=== PATIENT | male | born 1945 | race Caucasian/White ===

== ENCOUNTER → 2020-09-02 15:40 | Outpatient (BNVA) | payer OTHER, SELFPAY | PROVIDERS: Family Provider Family Medicine; PCP Orthopaedic Surgery Sports Medicine; Visit Provider Nurse Practitioner Family | DX: Z20.828 Contact with and (suspected) exposure to other viral communicable diseases (principal) | CPT/HCPCS: 87635 ==

== ENCOUNTER 2020-12-27 09:53 | Emergency (ER) | payer OTHER, BC, SELFPAY ==
[2020-12-27] VITALS (9 sets, daily range): BP systolic 142–159; BP diastolic 80–90; PULSE 74–86; RESP 18–26; TEMP 36.5; O2SAT 94–98; BMI 32.9
--- NOTE | 2020-12-27 10:13 | XRR_ITS ---
PROCEDURE INFORMATION: Exam: XR Chest Exam date and time: 12/27/2020 10:16 AM Age: 75 years old Clinical indication: Shortness of breath; Additional info: SOB TECHNIQUE: Imaging protocol: XR of the chest Views: 1 view. COMPARISON: CR Chest 1 [place] [id number] 09/17/2019 4:23 PM FINDINGS: Tubes, catheters and devices: Atrioventricular pacemaker. Lungs: Interstitial disease, without acute airspace disease. Pleural spaces: No pleural effusion. Heart/Mediastinum: Borderline cardiomegaly. Bones/joints: Median sternotomy. Degenerative change. When correlating with the previous study, no significant interval changes are present. XR/XR chest 1V portable [id number] IMPRESSION: Stable appearance of the chest, not significantly changed from 09/17/19.
--- NOTE | 2020-12-27 10:14 | ECG_ITS ---
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1945 Requested By: Jose Muniz Order Number: [id number] Shalini MD: SOTERO HOWE Measurements Intervals [place] Rate: 82 P: NC: QRS: -12 QRSD: 94 T: -16 QT: 365 QTc: 427 Interpretive Statements ATRIAL FIBRILLATION ELECTRONIC VENTRICULAR PACEMAKER -- CONTOUR ANALYSIS BASED ON INTRINSIC RHYTHM ST DEVIATION AND MODERATE T-WAVE ABNORMALITY, CONSIDER ANTEROLATERAL ISCHEMIA [-0.1+ mV T WAVE IN V3-V6] Compared to ECG 07/12/2019 05:38:21 THERE IS NO CHANGE Electronically Signed On 12-27-2020 18:45:35 TRAVEL PT by SOTERO HOWE [email or web address] hospitalR[facility]be[email or web address]/store/NU/[id number] f
--- NOTE | 2020-12-27 10:23 | ED_ITS ---
Documented by User: MONSE Light 12/28/20 07:19 HPI - SOB/Dyspnea General: Chief Complaint: Shortness of Breath/Dyspnea Stated Complaint: Shortness of breath Time Seen by Provider: 12/27/20 10:04 History of Present Illness: HPI Narrative: Patient is a 75-year-old male comes to the ED with shortness of breath and cough. Patient has a history of COPD, CHF, hypertension, hyperlipidemia, CAD, diabetes and has a pacemaker. Patient says symptoms started approximately 2 days ago. He reports having increased shortness of breath especially when he is laying down or when he is up moving around. He currently has inhalers that he uses for COPD and he has been using them as prescribed. He reports having a cough that he gets up some dark green type phlegm. Reports some mild fluid retention in his legs within the last 24 hours but denies any known weight gain. Patient says he has bronchitis usually twice a year and he feels like these current symptoms of start of bronchitis. Denies any chest pain, fever, chills, abdominal pain, nausea/vomiting, bladder or bowel symptoms. Patient received his second Covid vaccine dose 2 weeks ago. Patient is not on any home O2. Associated symptoms: Reports chest congestion and orthopnea; Deny abdominal pain, chest pain, fever(s), nausea, palpitations or vomiting Review of Systems Const: Denies: fever(s), chills or fatigue Eyes: Denies: change in vision or eye discomfort ENMT: Denies: throat pain, odynophagia, nasal discharge or nasal congestion Card: Reports: edema (mild bilateral edema), dyspnea on exertion and orthopnea; Denies: chest pain, palpitations or swelling of feet/ankles Resp: Reports: dyspnea, productive cough (dark green phlegm), wheezing, change in phlegm color (dark green) and chest congestion; Denies: non-productive cough GI: Denies: abdominal pain, nausea, vomiting, diarrhea, constipation or hematochezia : Denies: flank pain, difficulty urinating, dysuria or hematuria Musc: Denies: neck pain, back pain or extremity swelling Skin/Breast: Denies: rash or new lesions Neuro: Denies: headache(s), numbness in extremities or weakness in extremities PFS ED PFSH: Medical History (Updated 01/05/21 @ 00:00 by ) CAD (coronary artery disease) Chronic episodic atrial fibrillation COPD (chronic obstructive pulmonary disease) Diabetes Hyperlipidemia Hypertension Pacemaker PUD (peptic ulcer disease) PVD (peripheral vascular disease) Surgical History H/O mastectomy History of prostatectomy Hx of CABG Family History Other CAD (coronary artery disease) Cancer Diabetes Social History Smoking and tobacco status: former smoker Alcohol intake: current Alcohol intake frequency: holidays/special occasions only Physical Exam Const: COMMON NORMALS: no acute distress, patient oriented x3 and alert GENERAL APPEARANCE: cooperative and comfortable HENMT: COMMON NORMALS: normocephalic HEAD & SCALP: normocephalic MOUTH: Normal oral and palatal mucosa present THROAT: posterior oropharynx normal and uvula midline Eye: COMMON NORMALS: Equal, round and reactive pupils present PUPIL: Yes Equal, round and reactive pupils present Neck/C-Spine: COMMON NORMALS: supple GENERAL: Yes normal visual inspection Resp: COMMON NORMALS: normal respiratory effort, No retractions and No use of accessory muscles EFFORT & INSPECTION: Yes able to speak in complete sentences and Yes tachypneic (20 respirations a minute) AUSCULTATION: wheezes expiratory wheezes and throughout Cardio: COMMON NORMALS: regular rate, regular rhythm, S1 normal heart sound present, S2 normal heart sound present, No gallops present (Cardio), No clicks present (Cardio), No murmurs present (Cardio) and Peripheral pulses 2+ throughout RATE: regular rate RHYTHM: regular rhythm HEART SOUNDS: S1 normal heart sound present and S2 normal heart sound present PERIPHERAL PULSES: Peripheral pulses 2+ throughout GI: COMMON NORMALS: Normal to inspection, nondistended, normoactive bowel sounds present, Soft to palpation, non-tender and no masses PALPATION: Yes Soft to palpation : COMMON NORMALS: Yes no CVA tenderness BLADDER/KIDNEY EXAM: Yes no CVA tenderness Back/Pelvis: COMMON NORMALS: no CVA tenderness Extremity: GENERAL: Yes edema (Right leg 2+ pitting edema up into the mid hua. Left leg 1+ pitting edema) Neuro: COMMON NORMALS: patient oriented x3 and moves all extremities SENSORIUM/ORIENTATION: Yes alert Skin: GENERAL SKIN EXAM: dry skin Course Reevaluation(s): Reevaluation #1: Patient received DuoNeb breathing treatment that he still has expiratory wheezing throughout. O2 was at 95 to 96% on room air was in the room. Time: 12:00 Reevaluation #2: Patient was given another albuterol neb breathing treatment while here in the ED and his lung sounds improved greatly after treatment. Wheezing throughout lungs improved and now just some mild faint wheezing can be heard. Patient says he feels like his shortness of breath has improved greatly now. Time: 12:56 Consultations: Consultation #1: I ordered a home O2 eval on patient here in the ED. Respiratory performed evaluation and said patient was at 90% O2 on room air when sitting and then when up ambulating he never got below 95% O2 on room air. Patient passed home O2 eval. Time: 13:35 Vital Signs: Vital signs: Vital Signs Temperature 97.7 F 12/27/20 10:06 Pulse Rate 84 12/27/20 13:51 Respiratory Rate 26 H 12/27/20 13:51 Blood Pressure 156/90 12/27/20 13:51 Pulse Oximetry 94 12/27/20 13:51 MDM - SOB/Dyspnea MDM Narrative: Medical decision making narrative: Patient is a 75-year-old male who comes to the ED with shortness of breath, productive cough and wheezing. Patient has past medical history of COPD, CHF with pacemaker, hypertension, hyperlipidemia and diabetes. Denies any fever or chest pain. Patient has received 2 doses of the COVID-19 vaccination and is second dose was approximately 2 weeks ago. Vitals- O2 sat 98% on room air. Exam was remarkable for expiratory wheezing throughout the lungs and right and left lower extremity edema of 2+ and 1+ respectively. CBC and CMP were unremarkable. EKG showed normal showed some mild ST depressions in leads V3 through V6. Troponins were negative and BNP of 1313. Chest x-ray showed no acute findings or fluid on lung seen. Patient was given Solu-Medrol and multiple breathing treatments here in the ED and his wheezing greatly improved. Patient felt like he could breathe better after breathing treatments. Patient passed home O2 eval and his oxygen level was at 95% or more when he ambulated. He was given a dose of azithromycin while he was here. Patient diagnosed with a COPD exacerbation and discharged home with a Medrol Dosepak and azithromycin. He was told to continue using his previously prescribed inhalers. Return to ED precautions given. Follow-up with PCP in 7 to 10 days for reevaluation. Patient understood and agreed with plan. I spoke with Dr. Roa about patient's case and he agreed with plan of care and discharge. Lab Data: Attestation: I reviewed the patient's lab results. Labs: Lab Results 12/27/20 12/27/20 12/27/20 Range/Units 10:28 10:28 10:28 WBC 5.6 (4.0-10.0) 10^3/ uL RBC 3.95 L (4.1-5.3) 10^6/u L Hgb 12.2 (11.7-16.6) g/dL Hct 37.1 L (42.0-52.0) % MCV 93.9 (80-94) fL MCH 30.9 (28.0-34.0) pg MCHC 32.9 (30.0-36.0) g/dL RDW 12.1 (12.1-15.1) % Plt Count 118 L (130-400) 10^3/c mm MPV 10.5 H (7.4-10.4) fL Neut % (Auto) 65.4 % Lymph % (Auto) 14.1 % Sandoval % (Auto) 9.0 % Eos % (Auto) 10.3 % Baso % (Auto) 0.7 % Neut # (Auto) 3.63 (1.8-7.7) 10^3/u L Lymph # (Auto) 0.8 (0.8-4.8) 10^3/u L Sandoval # (Auto) 0.5 (0.2-0.9) 10^3/u L Eos # (Auto) 0.6 (0.0-0.8) 10^3/u L Baso # (Auto) 0.0 (0.0-0.1) 10^3/u L Nucleated RBC % (a uto) 0 % Nucleated RBCs # 0.0 /100WBC Sodium 133 L (136-145) mmol/L Potassium 4.1 (3.5-5.1) mmol/L Chloride 98 (98-107) mmol/L Carbon Dioxide 20 L (22-29) mmol/L Anion Gap 19.1 H (5-19) BUN 12 (8-23) mg/dL Creatinine 1.0 (0.7-1.2) mg/dL GFR Calculation Not Reportable Glucose 213 H (65-115) mg/dL Calculated Osmolal ity 282 L (285-295) mOsm/k g Calcium 8.9 (8.5-10.5) mg/dL Total Bilirubin 0.6 (0.15-1.2) mg/dL AST 19 (0-40) U/L ALT 14 (0-41) U/L Alkaline Phosphata se 42 (40-130) IU/L Troponin T Baselin e 16 H (0-15) ng/L Troponin T 120 Min huslia (0-15) ng/L Delta Troponin T (0-10) ABS# NT-Pro-B Natriuret Pep 1313 H (0-450) pg/mL Total Protein 6.8 (6.6-8.7) g/dL Albumin 4.3 (3.5-5.2) g/dL Globulin 2.5 (1.3-4.6) g/dL 12/27/20 Range/Units 12:08 WBC (4.0-10.0) 10^3/ uL RBC (4.1-5.3) 10^6/u L Hgb (11.7-16.6) g/dL Hct (42.0-52.0) % MCV (80-94) fL MCH (28.0-34.0) pg MCHC (30.0-36.0) g/dL RDW (12.1-15.1) % Plt Count (130-400) 10^3/c mm MPV (7.4-10.4) fL Neut % (Auto) % Lymph % (Auto) % Sandoval % (Auto) % Eos % (Auto) % Baso % (Auto) % Neut # (Auto) (1.8-7.7) 10^3/u L Lymph # (Auto) (0.8-4.8) 10^3/u L Sandoval # (Auto) (0.2-0.9) 10^3/u L Eos # (Auto) (0.0-0.8) 10^3/u L Baso # (Auto) (0.0-0.1) 10^3/u L Nucleated RBC % (a uto) % Nucleated RBCs # /100WBC Sodium (136-145) mmol/L Potassium (3.5-5.1) mmol/L Chloride (98-107) mmol/L Carbon Dioxide (22-29) mmol/L Anion Gap (5-19) BUN (8-23) mg/dL Creatinine (0.7-1.2) mg/dL GFR Calculation Glucose (65-115) mg/dL Calculated Osmolal ity (285-295) mOsm/k g Calcium (8.5-10.5) mg/dL Total Bilirubin (0.15-1.2) mg/dL AST (0-40) U/L ALT (0-41) U/L Alkaline Phosphata se (40-130) IU/L Troponin T Baselin e (0-15) ng/L Troponin T 120 Min huslia 16.17 H (0-15) ng/L Delta Troponin T 0.17 (0-10) ABS# NT-Pro-B Natriuret Pep (0-450) pg/mL Total Protein (6.6-8.7) g/dL Albumin (3.5-5.2) g/dL Globulin (1.3-4.6) g/dL Imaging Data^: CXR: Attestation: I personally reviewed and interpreted this imaging study as follows: Radiologist's impression: [address] [address] XRay Report Signed Patient: Yvon Trujillo Unit #: [id number] : 1945 Age/Sex: 75 / M ADM Date: 12/27/20 Loc: ER Room/Bed: Attending Dr: Ordering Provider/Ordering MD: Jose Muniz Date of Service: 12/27/20 Procedure(s): XR chest 1V portable [id number] Accession Number(s): [id number] Report Number: [id number] PROCEDURE INFORMATION: Exam: XR Chest Exam date and time: 12/27/2020 10:16 AM Age: 75 years old Clinical indication: Shortness of breath; Additional info: SOB TECHNIQUE: Imaging protocol: XR of the chest Views: 1 view. COMPARISON: CR Chest 1 [place] [id number] 09/17/2019 4:23 PM FINDINGS: Tubes, catheters and devices: Atrioventricular pacemaker. Lungs: Interstitial disease, without acute airspace disease. Pleural spaces: No pleural effusion. Heart/Mediastinum: Borderline cardiomegaly. Bones/joints: Median sternotomy. Degenerative change. When correlating with the previous study, no significant interval changes are present. XR/XR chest 1V portable [id number] IMPRESSION: Stable appearance of the chest, not significantly changed from 09/17/19. Dictated By: Romel Shaw MD Signed By: Romel Shaw MD Signed Date/Time: 12/27/20 1149 DD/ 1148 EKG Data^: EKG 1: Attestation: I personally reviewed and interpreted this EKG as follows: EKG Interpretation Date: 12/27/20 Interpretation: Electronically ventricular pacemaker, 82 bpm, ST depression in leads V3 through V6. EKG 2: Attestation: I personally reviewed and interpreted this EKG as follows: EKG Interpretation Date: 12/27/20 Interpretation: Atrial fibrillation normal rate, [address] depression in leads V3 through V6 are more pronounced compared to previous EKG 2 hours ago. Discharge Plan Discharge Patient Disposition: Home Clinical Impression: COPD exacerbation Condition: Stable Prescriptions: New methylprednisolone [Medrol (Juan Carlos)] 4 mg tablets,dose pack See Rx Instructions .ROUTE .COMPLEX Qty: 21 RF: 0 No Action metoprolol tartrate 50 mg tablet 100 mg PO BID@ RF: 0 vitamin G19-dfdqi acid 500-400 mcg tablet 1 tab PO DAILY@ RF: 0 ferrous sulfate 325 mg (65 mg iron) tablet 325 mg PO DAILY@ RF: 0 furosemide 20 mg tablet 20 mg PO DAILY@ RF: 0 Lantus U-100 Insulin 100 unit/mL solution 50 unit SUBCUT DAILY@ RF: 0 magnesium 200 mg tablet 200 mg PO BID@ RF: 0 rosuvastatin 20 mg tablet 10 mg PO DAILY@ RF: 0 Pradaxa 150 mg capsule 150 mg PO BID@ RF: 0 pantoprazole 40 mg tablet,delayed release (DR/EC) 40 mg PO DAILY@ RF: 0 lisinopril 20 mg tablet 20 mg PO DAILY@09 RF: 0 aspirin [Adult Low Dose Aspirin] 81 mg tablet,delayed release (DR/EC) 81 mg PO DAILY@21 RF: 0 nitroglycerin [Nitrostat] 0.4 mg tablet, sublingual 0.4 mg SUBLINGUAL Q5M PRN (Reason: Chest Pain) RF: 0 multivitamin Tablet 1 tab PO DAILY RF: 0 albuterol sulfate 2.5 mg /3 mL (0.083 %) Solution For Nebulization 2.5 mg inhalation PRN RF: 0 albuterol sulfate [ProAir HFA] 90 mcg/actuation Hfa Aerosol Inhaler 2 puff INHALATION Q4H PRN (Reason: Shortness Of Breath) RF: 0 Combivent Respimat 20-100 mcg/actuation mist 1 puff INHALATION QID PRN (Reason: Shortness Of Breath) RF: 0 Ozempic 0.25 mg or 0.5 mg(2 mg/1.5 mL) pen injector 0.5 mg SUBCUT Q7D RF: 0 Benadryl 25 mg Capsule 25 mg PO PRN RF: 0 metformin 750 mg Tablet Extended Release 24 Hr 750 mg PO BID RF: 0 Zofran 4 mg tablet 4 mg PO Q8H PRN (Reason: nausea and vomiting) Qty: 20 RF: 0 Discharge Orders: Discharge ED (Routine); Ordered 12/27/20 Ordered By: Jose Muniz Referrals: Juanjo Chu Jr, MD [Primary Care Provider] - Discharge Diet: Regular Discharge Activity: Increase activity as tolerated Patient Instructions: Chronic Obstructive Pulmonary Disease (ED) Activity Restrictions/Additional Instructions: Follow-up with medical provider as directed in the next 7 to 10 days for reevaluation. Take medications as prescribed. Take first dose of azithromycin tomorrow, since I gave you today's dose while here in the ED. Return to the ER or your medical provider if condition worsens. Please read and understand discharge instructions. If any questions, please ask. Coding Level of Care Code ED Packing Line Operator for Chg Fwd Exam Comprehensive Documented by User: Romi Roa MD, [facility] [place] 01/11/21 00:36 HPI - SOB/Dyspnea General: Chief Complaint: Shortness of Breath/Dyspnea Stated Complaint: Shortness of breath Time Seen by Provider: 12/27/20 10:04 PFSH ED PFSH: Medical History (Updated 01/05/21 @ 00:00 by ) CAD (coronary artery disease) Chronic episodic atrial fibrillation COPD (chronic obstructive pulmonary disease) Diabetes Hyperlipidemia Hypertension Pacemaker PUD (peptic ulcer disease) PVD (peripheral vascular disease) Surgical History H/O mastectomy History of prostatectomy Hx of CABG Family History Other CAD (coronary artery disease) Cancer Diabetes Social History Smoking and tobacco status: former smoker Alcohol intake: current Alcohol intake frequency: holidays/special occasions only Course Vital Signs: Vital signs: Vital Signs Temperature 97.7 F 12/27/20 10:06 Pulse Rate 84 12/27/20 13:51 Respiratory Rate 26 H 12/27/20 13:51 Blood Pressure 156/90 12/27/20 13:51 Pulse Oximetry 94 12/27/20 13:51 MDM - SOB/Dyspnea MDM Narrative: Medical decision making narrative: Kindly evaluate the BENCH ASSEMBLY INSPECTOR's note for complete history and physical. I agree with his findings and plan. Lab Data: Labs: Lab Results 12/27/20 12/27/20 12/27/20 Range/Units 10:28 10:28 10:28 WBC 5.6 (4.0-10.0) 10^3/ uL RBC 3.95 L (4.1-5.3) 10^6/u L Hgb 12.2 (11.7-16.6) g/dL Hct 37.1 L (42.0-52.0) % MCV 93.9 (80-94) fL MCH 30.9 (28.0-34.0) pg MCHC 32.9 (30.0-36.0) g/dL RDW 12.1 (12.1-15.1) % Plt Count 118 L (130-400) 10^3/c mm MPV 10.5 H (7.4-10.4) fL Neut % (Auto) 65.4 % Lymph % (Auto) 14.1 % Sandoval % (Auto) 9.0 % Eos % (Auto) 10.3 % Baso % (Auto) 0.7 % Neut # (Auto) 3.63 (1.8-7.7) 10^3/u L Lymph # (Auto) 0.8 (0.8-4.8) 10^3/u L Sandoval # (Auto) 0.5 (0.2-0.9) 10^3/u L Eos # (Auto) 0.6 (0.0-0.8) 10^3/u L Baso # (Auto) 0.0 (0.0-0.1) 10^3/u L Nucleated RBC % (a uto) 0 % Nucleated RBCs # 0.0 /100WBC Sodium 133 L (136-145) mmol/L Potassium 4.1 (3.5-5.1) mmol/L Chloride 98 (98-107) mmol/L Carbon Dioxide 20 L (22-29) mmol/L Anion Gap 19.1 H (5-19) BUN 12 (8-23) mg/dL Creatinine 1.0 (0.7-1.2) mg/dL GFR Calculation Not Reportable Glucose 213 H (65-115) mg/dL Calculated Osmolal ity 282 L (285-295) mOsm/k g Calcium 8.9 (8.5-10.5) mg/dL Total Bilirubin 0.6 (0.15-1.2) mg/dL AST 19 (0-40) U/L ALT 14 (0-41) U/L Alkaline Phosphata se 42 (40-130) IU/L Troponin T Baselin e 16 H (0-15) ng/L Troponin T 120 Min huslia (0-15) ng/L Delta Troponin T (0-10) ABS# NT-Pro-B Natriuret Pep 1313 H (0-450) pg/mL Total Protein 6.8 (6.6-8.7) g/dL Albumin 4.3 (3.5-5.2) g/dL Globulin 2.5 (1.3-4.6) g/dL 12/27/20 Range/Units 12:08 WBC (4.0-10.0) 10^3/ uL RBC (4.1-5.3) 10^6/u L Hgb (11.7-16.6) g/dL Hct (42.0-52.0) % MCV (80-94) fL MCH (28.0-34.0) pg MCHC (30.0-36.0) g/dL RDW (12.1-15.1) % Plt Count (130-400) 10^3/c mm MPV (7.4-10.4) fL Neut % (Auto) % Lymph % (Auto) % Sandoval % (Auto) % Eos % (Auto) % Baso % (Auto) % Neut # (Auto) (1.8-7.7) 10^3/u L Lymph # (Auto) (0.8-4.8) 10^3/u L Sandoval # (Auto) (0.2-0.9) 10^3/u L Eos # (Auto) (0.0-0.8) 10^3/u L Baso # (Auto) (0.0-0.1) 10^3/u L Nucleated RBC % (a uto) % Nucleated RBCs # /100WBC Sodium (136-145) mmol/L Potassium (3.5-5.1) mmol/L Chloride (98-107) mmol/L Carbon Dioxide (22-29) mmol/L Anion Gap (5-19) BUN (8-23) mg/dL Creatinine (0.7-1.2) mg/dL GFR Calculation Glucose (65-115) mg/dL Calculated Osmolal ity (285-295) mOsm/k g Calcium (8.5-10.5) mg/dL Total Bilirubin (0.15-1.2) mg/dL AST (0-40) U/L ALT (0-41) U/L Alkaline Phosphata se (40-130) IU/L Troponin T Baselin e (0-15) ng/L Troponin T 120 Min huslia 16.17 H (0-15) ng/L Delta Troponin T 0.17 (0-10) ABS# NT-Pro-B Natriuret Pep (0-450) pg/mL Total Protein (6.6-8.7) g/dL Albumin (3.5-5.2) g/dL Globulin (1.3-4.6) g/dL Discharge Plan Discharge Patient Disposition: Home Clinical Impression: COPD exacerbation Condition: Stable Prescriptions: New methylprednisolone [Medrol (Juan Carlos)] 4 mg tablets,dose pack See Rx Instructions .ROUTE .COMPLEX Qty: 21 RF: 0 No Action metoprolol tartrate 50 mg tablet 100 mg PO BID@, RF: 0 vitamin P36-sbflp acid 500-400 mcg tablet 1 tab PO DAILY@ RF: 0 ferrous sulfate 325 mg (65 mg iron) tablet 325 mg PO DAILY@ RF: 0 furosemide 20 mg tablet 20 mg PO DAILY@ RF: 0 Lantus U-100 Insulin 100 unit/mL solution 50 unit SUBCUT DAILY@ RF: 0 magnesium 200 mg tablet 200 mg PO BID@ RF: 0 rosuvastatin 20 mg tablet 10 mg PO DAILY@ RF: 0 Pradaxa 150 mg capsule 150 mg PO BID@ RF: 0 pantoprazole 40 mg tablet,delayed release (DR/EC) 40 mg PO DAILY@ RF: 0 lisinopril 20 mg tablet 20 mg PO DAILY@ RF: 0 aspirin [Adult Low Dose Aspirin] 81 mg tablet,delayed release (DR/EC) 81 mg PO DAILY@ RF: 0 nitroglycerin [Nitrostat] 0.4 mg tablet, sublingual 0.4 mg SUBLINGUAL Q5M PRN (Reason: Chest Pain) RF: 0 multivitamin Tablet 1 tab PO DAILY RF: 0 albuterol sulfate 2.5 mg /3 mL (0.083 %) Solution For Nebulization 2.5 mg inhalation PRN RF: 0 albuterol sulfate [ProAir HFA] 90 mcg/actuation Hfa Aerosol Inhaler 2 puff INHALATION Q4H PRN (Reason: Shortness Of Breath) RF: 0 Combivent Respimat 20-100 mcg/actuation mist 1 puff INHALATION QID PRN (Reason: Shortness Of Breath) RF: 0 Ozempic 0.25 mg or 0.5 mg(2 mg/1.5 mL) pen injector 0.5 mg SUBCUT Q7D RF: 0 Benadryl 25 mg Capsule 25 mg PO PRN RF: 0 metformin 750 mg Tablet Extended Release 24 Hr 750 mg PO BID RF: 0 Zofran 4 mg tablet 4 mg PO Q8H PRN (Reason: nausea and vomiting) Qty: 20 RF: 0 Discharge Orders: Discharge ED (Routine); Ordered 12/27/20 Ordered By: Jose Muniz Referrals: Juanjo Chu Jr, MD [Primary Care Provider] - Discharge Diet: Regular Discharge Activity: Increase activity as tolerated Patient Instructions: Chronic Obstructive Pulmonary Disease (ED) Activity Restrictions/Additional Instructions: Follow-up with medical provider as directed in the next 7 to 10 days for reevaluation. Take medications as prescribed. Take first dose of azithromycin tomorrow, since I gave you today's dose while here in the ED. Return to the ER or your medical provider if condition worsens. Please read and understand discharge instructions. If any questions, please ask. Coding Level of Care Code ED Packing Line Operator for Jenna Fwd Exam Comprehensive
[2020-12-27 10:37] LABS: Basophils % 0.7 %; Eosinophils # 0.6 10^3/uL (0.0-0.8); Eosinophils % 10.3 %; Hematocrit 37.1 % (42.0-52.0); Hemoglobin 12.2 g/dL (11.7-16.6); Lymphocytes # 0.8 10^3/uL (0.8-4.8); Lymphocytes % 14.1 %; Mean Corpuscular HGB Conc 32.9 g/dL (30.0-36.0); Mean Corpuscular Hemoglobin 30.9 pg (28.0-34.0); Mean Corpuscular Volume 93.9 fL (80-94); Mean Platelet Volume 10.5 fL (7.4-10.4); Monocytes # 0.5 10^3/uL (0.2-0.9); Neutrophils # 3.63 10^3/uL (1.8-7.7); Neutrophils % 65.4 %; Nucleated Red Blood Cells % 0 %; Platelet Count 118 10^3/cmm (130-400); Red Blood Count 3.95 10^6/uL (4.1-5.3); Red Cell Distribution Width 12.1 % (12.1-15.1); White Blood Count 5.6 10^3/uL (4.0-10.0)
[2020-12-27 11:20] LABS: Troponin(5th) Baseline 16 ng/L (0-15)
[2020-12-27 11:26] LABS: Alanine Aminotransferase 14 U/L (0-41); Albumin Level 4.3 g/dL (3.5-5.2); Alkaline Phosphatase 42 IU/L (40-130); Anion Gap 19.1 (5-19); Aspartate Amino Transferase 19 U/L (0-40); Blood Urea Nitrogen 12 mg/dL (8-23); Calcium 8.9 mg/dL (8.5-10.5); Carbon Dioxide 20 mmol/L (22-29); Chloride 98 mmol/L (98-107); Globulin 2.5 g/dL (1.3-4.6); Glucose 213 mg/dL (65-115); NT Pro B Type Natriuretic Pept 1313 pg/mL (0-450); Osmolality Calculated 282 mOsm/kg (285-295); Potassium 4.1 mmol/L (3.5-5.1); Sodium 133 mmol/L (136-145); Total Bilirubin 0.6 mg/dL (0.15-1.2); Total Protein 6.8 g/dL (6.6-8.7)
[2020-12-27] MEDS: ipratropium-albuterol 3 mL Neb 6 ML INHALATION (11:41)
--- NOTE | 2020-12-27 12:14 | ECG_ITS ---
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1945 Requested By: Jose Muniz Order Number: [id number] Shalini MD: SOTERO HOWE Measurements Intervals [place] Rate: 78 P: AR: QRS: -6 QRSD: 86 T: -48 QT: 360 QTc: 411 Interpretive Statements ATRIAL FIBRILLATION POSSIBLE RIGHT VENTRICULAR CONDUCTION DELAY [RSR (QR) IN V1/V2] ST DEVIATION AND MODERATE T-WAVE ABNORMALITY, CONSIDER ANTEROLATERAL ISCHEMIA [-0.1+ mV T WAVE IN V3-V6] Compared to ECG 07/12/2019 05:38:21 T-wave abnormality now present Possible ischemia now present Atrial-paced complex(es) or rhythm no longer present Myocardial infarct finding no longer present Electronically Signed On 12-27-2020 18:47:19 CUSTOMER PROGRAM MANAGER by SOTERO HOWE [id number]
[2020-12-27 12:30] LABS: Troponin 5 2HR 16.17 ng/L (0-15); Troponin 5 2HR Delta 0.17 ABS# (0-10)
--- NOTE | 2020-12-27 12:42 | PC.PHAR ---
pt states he takes care of his own medications-pt states he takes the medications that are entered-[facility]ing [facility] the [facility] to [facility] to verify meds and to verify if metoprolol is tartrate or er
[2020-12-27] MEDS: azithromycin 250 mg Tablet 500 MG PO (13:40)
== END 2020-12-27 13:47 | disposition home or self-care (01) ==
PROVIDERS: Emergency Provider Physician Assistant; PCP Orthopaedic Surgery Sports Medicine
DX: J44.1 Chronic obstructive pulmonary disease with (acute) exacerbation (principal); Z79.82 Long term (current) use of aspirin; Z79.4 Long term (current) use of insulin; I25.10 Atherosclerotic heart disease of native coronary artery without angina pectoris; E11.9 Type 2 diabetes mellitus without complications; E78.5 Hyperlipidemia, unspecified; I10 Essential (primary) hypertension; Z95.0 Presence of cardiac pacemaker; Z95.1 Presence of aortocoronary bypass graft; Z87.891 Personal history of nicotine dependence
CPT/HCPCS: 71045; 80053; 83880; 84484; 85025; 93005; 94640; 96374; 99284; J2930; J7611; Q0144

== ENCOUNTER 2020-12-28 08:46 | Emergency (ER) | payer OTHER, BC, SELFPAY ==
[2020-12-28] VITALS (8 sets, daily range): BP systolic 130–169; BP diastolic 65–106; PULSE 76–96; RESP 18–28; TEMP 36.9–37.1; O2SAT 91–97; BMI 32.9
--- NOTE | 2020-12-28 09:19 | ED_ITS ---
HPI - Nausea/Vomiting/Diarrhea General: Chief complaint: Nausea/Vomiting/Diarrhea Stated complaint: N/V/Dry heave Time Seen by Provider: 12/28/20 09:03 History of Present Illness: HPI Narrative: Patient is a 75-year-old male comes to the ED with nausea and vomiting. Past medical history of COPD, CHF, diabetes, hypertension and hyperlipidemia. Patient was seen here yesterday for shortness of breath and wheezing. He states that those symptoms have improved. Patient says symptoms started at around 10:00 last night. Patient is concerned that he might of gotten food poisoning because he ate at [employer] several hours before he started developing symptoms. Denies any diarrhea or constipation. He has generalized abdominal pain that he thinks it is possibly due to all the dry heaving and vomiting he did last night. He still feels nauseous here in the ED and trying to take his morning meds and he was unable to keep them down. Patient did say that he checked his blood sugar this morning and it read high with no specific number given. Patient says he took his insulin before coming to the ED. Associated nausea: Yes Associated symtoms: Reports nausea; Denies change in vision, chest pain, dysuria, fatigue, headache(s) or palpitations Review of Systems Const: Denies: fever(s), chills or fatigue Eyes: Denies: change in vision or eye discomfort ENMT: Denies: throat pain, odynophagia, nasal discharge or nasal congestion Card: Denies: chest pain, palpitations, edema, swelling of feet/ankles, dyspnea on exertion or orthopnea Resp: Denies: dyspnea, productive cough or non-productive cough GI: Reports: abdominal pain, nausea and vomiting; Denies: diarrhea, constipation or hematochezia : Denies: flank pain, difficulty urinating, dysuria or hematuria Musc: Denies: neck pain, back pain or extremity swelling Skin/Breast: Denies: rash or new lesions Neuro: Denies: headache(s), numbness in extremities or weakness in extremities PFS ED PFSH: Medical History CAD (coronary artery disease) Chronic episodic atrial fibrillation COPD (chronic obstructive pulmonary disease) Diabetes Hyperlipidemia Hypertension Pacemaker PUD (peptic ulcer disease) PVD (peripheral vascular disease) Surgical History H/O mastectomy History of prostatectomy Hx of CABG Family History Other CAD (coronary artery disease) Cancer Diabetes Social History Smoking and tobacco status: former smoker Alcohol intake: current Alcohol intake frequency: holidays/special occasions only Physical Exam Const: COMMON NORMALS: no acute distress, patient oriented x3 and alert GENERAL APPEARANCE: cooperative and comfortable NUTRITIONAL APPEARANCE: overweight HENMT: COMMON NORMALS: normocephalic HEAD & SCALP: normocephalic MOUTH: Normal oral and palatal mucosa present THROAT: posterior oropharynx normal and uvula midline Neck/C-Spine: COMMON NORMALS: supple GENERAL: Yes normal visual inspection Resp: COMMON NORMALS: normal respiratory effort, No retractions, No use of accessory muscles and clear to auscultation bilaterally EFFORT & INSPECTION: Yes able to speak in complete sentences, Yes tachypneic and Yes audible wheezes AUSCULTATION: clear to auscultation bilaterally and wheezes expiratory wheezes and throughout Cardio: COMMON NORMALS: regular rate, regular rhythm, S1 normal heart sound present, S2 normal heart sound present, No gallops present (Cardio), No clicks present (Cardio), No murmurs present (Cardio) and Peripheral pulses 2+ throughout RATE: regular rate RHYTHM: regular rhythm HEART SOUNDS: S1 normal heart sound present and S2 normal heart sound present PERIPHERAL PULSES: Peripheral pulses 2+ throughout GI: COMMON NORMALS: Normal to inspection, nondistended, normoactive bowel sounds present, Soft to palpation and no masses INSPECTION: Yes central obesity PALPATION: Yes Soft to palpation and Yes Tenderness to palpation present (GI) (Mild generalized abdominal tenderness throughout all 4 quadrants) : COMMON NORMALS: Yes no CVA tenderness BLADDER/KIDNEY EXAM: Yes no CVA tenderness Back/Pelvis: COMMON NORMALS: no CVA tenderness Extremity: GENERAL: Yes normal exam except as noted and Yes edema (Left leg1+ pitting edema, right leg 2+ pitting edema) Neuro: COMMON NORMALS: patient oriented x3 and moves all extremities SENSORIUM/ORIENTATION: Yes alert Skin: GENERAL SKIN EXAM: dry skin Course Reevaluation(s): Reevaluation #1: I went in to check on patient after he received Zofran to see if his nausea is improved. Patient said his nausea has got better but he just started develop pain some localized right lower quadrant tenderness of the abdomen. I palpated on patient's abdomen again and he did have positive McBurney's point. Negative Rovsing sign. I ordered a CT of the abdomen to check for possible appendicitis. Time: 11:20 Vital Signs: Vital signs: Vital Signs Temperature 98.7 F 12/28/20 14:14 Pulse Rate 83 12/28/20 14:14 Respiratory Rate 20 H 12/28/20 14:14 Blood Pressure 169/85 12/28/20 14:14 Pulse Oximetry 97 12/28/20 14:14 MDM - Nausea/Vomiting/Diarrhea MDM Narrative: Medical decision making narrative: Patient is a 75-year-old male who comes to the ED with nausea and vomiting. Patient was seen here in the ED yesterday December 27 for different complaint and was diagnosed with COPD exacerbation. He started developing nausea and vomiting several hours after eating [employer] last night. Upon initial abdominal exam he had some mild generalized tenderness, but while in the ED he started developing localized tenderness in the right lower quadrant. Patient still has some wheezing in his lungs so I ordered him DuoNeb treatments while here in the ED. Vitals stable. White blood cell count 16.9 (patient was given IV steroids yesterday) rest of CBC and CMP were unremarkable. Lipase 18. CT of the abdomen pelvis showed possible colitis or diverticulitis. Patient was given IV Zofran and his nausea symptoms improved. He was able to take p.o. meds while here in the ED. Patient diagnosed with diverticulitis and discharged home with a prescription for Flagyl, Bactrim and Zofran. Is told to follow-up with his PCP in 7 days for reevaluation. Clear liquid diet then advance as tolerated. Return to ED precautions given. Patient understood and agreed with plan. Lab Data: Attestation: I reviewed the patient's lab results. Labs: Lab Results 12/28/20 12/28/20 12/28/20 Range/Units 10:25 10:25 10:29 WBC 16.9 H (4.0-10.0) 10^3/ uL RBC 4.09 L (4.1-5.3) 10^6/u L Hgb 12.5 (11.7-16.6) g/dL Hct 38.2 L (42.0-52.0) % MCV 93.4 (80-94) fL MCH 30.6 (28.0-34.0) pg MCHC 32.7 (30.0-36.0) g/dL RDW 12.3 (12.1-15.1) % Plt Count 147 (130-400) 10^3/c mm MPV 10.9 H (7.4-10.4) fL Neut % (Auto) 83.9 % Lymph % (Auto) 7.9 % [place] % (Auto) 6.9 % Eos % (Auto) 0.1 % Baso % (Auto) 0.2 % Neut # (Auto) 14.21 H (1.8-7.7) 10^3/u L Lymph # (Auto) 1.3 (0.8-4.8) 10^3/u L [place] # (Auto) 1.2 H (0.2-0.9) 10^3/u L Eos # (Auto) 0.0 (0.0-0.8) 10^3/u L Baso # (Auto) 0.0 (0.0-0.1) 10^3/u L Nucleated RBC % (a uto) 0 % Nucleated RBCs # 0.0 /100WBC Sodium 136 (136-145) mmol/L Potassium 4.6 (3.5-5.1) mmol/L Chloride 98 (98-107) mmol/L Carbon Dioxide 21 L (22-29) mmol/L Anion Gap 21.6 H (5-19) BUN 19 (8-23) mg/dL Creatinine 1.0 (0.7-1.2) mg/dL GFR Calculation Not Reportable Glucose 234 H (65-115) mg/dL POC Glucose 252 H (70-110) mg/dL Calculated Osmolal ity 292 (285-295) mOsm/k g Calcium 9.6 (8.5-10.5) mg/dL Total Bilirubin 0.5 (0.15-1.2) mg/dL AST 18 (0-40) U/L ALT 15 (0-41) U/L Alkaline Phosphata se 45 (40-130) IU/L Total Protein 7.3 (6.6-8.7) g/dL Albumin 4.6 (3.5-5.2) g/dL Globulin 2.7 (1.3-4.6) g/dL Lipase 18 (13-60) U/L Imaging Data^: CXR: Attestation: I personally reviewed and interpreted this imaging study as follows: Radiologist's impression: [facility] [address] [place] [address] XRay Report Signed Patient: Yvon Trujillo Unit #: [id number] : 1945 Age/Sex: 75 / M ADM Date: 12/28/20 Loc: ER Room/Bed: Attending Dr: Ordering Provider/Ordering MD: Jose Muniz Date of Service: 12/28/20 Procedure(s): XR chest 1V portable [id number] Accession Number(s): [id number] Report Number: [id number] PROCEDURE INFORMATION: Exam: XR Chest Exam date and time: 12/28/2020 9:26 AM Age: 75 years old Clinical indication: Wheezing TECHNIQUE: Imaging protocol: XR of the chest Views: 1 view. COMPARISON: CR (CHEST, ) 12/27/2020 10:12 AM FINDINGS: Tubes, catheters and devices: A cardiac pacing device is again seen projecting over the left chest. Lungs: Unremarkable. No consolidation. Pleural spaces: Unremarkable. No pleural effusion. No pneumothorax. Heart/Mediastinum: Stable cardiomediastinal silhouette. Bones/joints: Median sternotomy changes seen. XR/XR chest 1V portable [id number] IMPRESSION: No evidence of active cardiopulmonary disease. Dictated By: Rafael Schaeffer Signed By: Rafael Schaeffer Signed Date/Time: 12/28/20 1133 DD/ 1131 CT Abd/Pel: Attestation: I personally reviewed and interpreted this imaging study as follows: Radiologist's impression: [facility] [address] [place] [address]. [place] [address] CT Scan Report Signed Patient: Yvon Trujillo Unit #: [id number] : 1945 Age/Sex: 75 / M ADM Date: 12/28/20 Loc: ER Room/Bed: Attending Dr: Ordering Provider/Ordering MD: Jose Muniz Date of Service: 12/28/20 Procedure(s): CT abdomen pelvis w con* [id number] Accession Number(s): [id number] Report Number: [id number] PROCEDURE INFORMATION: Exam: CT Abdomen And Pelvis With Contrast Exam date and time: 12/28/2020 11:38 AM Age: 75 years old Clinical indication: Abdominal pain; Localized; Right lower quadrant (rlq); Additional info: Rlq abdominal pain TECHNIQUE: Imaging protocol: Computed tomography of the abdomen and pelvis with contrast. Radiation optimization: All CT scans at this facility use at least one of these dose optimization techniques: automated exposure control; mA and/or kV adjustment per patient size (includes targeted exams where dose is matched to clinical indication); or iterative reconstruction. Contrast material: OMNI 300; Contrast volume: 95 ml; Contrast route: INTRAVENOUS (IV); COMPARISON: No relevant prior studies available. RADIATION DOSE METRICS: Total DLP (mGy-cm): 1811.85 FINDINGS: Tubes, catheters and devices: Pacemaker leads noted. Lungs: Subpleural scarring noted in the right lower lung. Heart: Mildly enlarged heart. Coronary atherosclerotic calcifications seen. No pericardial effusion. Liver: A tiny calcified granuloma is noted in the right hepatic lobe. The liver is otherwise unremarkable. Gallbladder and bile ducts: Normal. No calcified stones. No ductal dilation. Pancreas: Normal. No ductal dilation. Spleen: There is tiny calcific densities scattered throughout the spleen, likely sequela of previous granulomatous disease. The spleen is otherwise unremarkable. An accessory splenule is incidentally noted in the left upper quadrant. Adrenal glands: Normal. No mass. Kidneys and ureters: Small cysts measuring 1.2 and 1.3 cm are noted in the right kidney. Symmetric enhancement of the kidneys without evidence of mass lesion. No hydronephrosis or nephrolithiasis. Stomach and bowel: There is thickening of the proximal ascending colon wall, in association with stranding of the surrounding fat, which may represent diverticulitis or colitis. There is scattered colonic diverticuli. No evidence of free air or fluid collection to suggest perforation. Appendix: No evidence of appendicitis. Intraperitoneal space: Surgical clips are seen scattered throughout the pelvis. No free air or discrete fluid collection identified. Vasculature: Severe diffuse atherosclerotic disease is present. Right common iliac artery stent noted. Lymph nodes: Unremarkable. No enlarged lymph nodes. Urinary bladder: Unremarkable as visualized. Reproductive: Unremarkable as visualized. Bones/joints: Degenerative changes of the spine seen. Median sternotomy changes noted. Soft tissues: A small fat containing left inguinal hernia is present. CT/CT abdomen pelvis w con* [id number] IMPRESSION: Inflammatory changes of the proximal ascending colon. Diagnostic considerations include diverticulitis and colitis. COMMENTS: Consistent with the [employer]'s Incidental Findings Committee white paper (J Am Curtis Radiol 2018): Any incidental renal lesion less than 1 cm or classified as too small to characterize, or any incidental cystic renal lesion characterized as simple-appearing, is likely benign. No follow-up imaging is recommended for these lesions per consensus recommendations based on imaging criteria. Radiation Dose CTDIVOL = (mGy): DLP = 1811.85 (mGy-cm) Dictated By: Rafael Schaeffer Signed By: Rafael Schaeffer Signed Date/Time: 12/28/20 1207 DD/ 1205 Discharge Plan Discharge Patient Disposition: Home Clinical Impression: Diverticulitis Condition: Stable Prescriptions: New Bactrim DS 800-160 mg tablet 1 tab PO BID 7 Days Qty: 14 RF: 0 Flagyl 500 mg tablet 500 mg PO Q8H 7 Days Qty: 21 RF: 0 Zofran 4 mg tablet 4 mg PO Q8H PRN (Reason: nausea and vomiting) Qty: 20 RF: 0 No Action metoprolol tartrate 50 mg tablet 100 mg PO BID@ RF: 0 vitamin Y69-aawwv acid 500-400 mcg tablet 1 tab PO DAILY@ RF: 0 ferrous sulfate 325 mg (65 mg iron) tablet 325 mg PO DAILY@21 RF: 0 furosemide 20 mg tablet 20 mg PO DAILY@ RF: 0 Lantus U-100 Insulin 100 unit/mL solution 50 unit SUBCUT DAILY@ RF: 0 magnesium 200 mg tablet 200 mg PO BID@ RF: 0 rosuvastatin 20 mg tablet 10 mg PO DAILY@ RF: 0 Pradaxa 150 mg capsule 150 mg PO BID@ RF: 0 pantoprazole 40 mg tablet,delayed release (DR/EC) 40 mg PO DAILY@09 RF: 0 lisinopril 20 mg tablet 20 mg PO DAILY@09 RF: 0 aspirin [Adult Low Dose Aspirin] 81 mg tablet,delayed release (DR/EC) 81 mg PO DAILY@21 RF: 0 nitroglycerin [Nitrostat] 0.4 mg tablet, sublingual 0.4 mg SUBLINGUAL Q5M PRN (Reason: Chest Pain) RF: 0 multivitamin Tablet 1 tab PO DAILY RF: 0 albuterol sulfate 2.5 mg /3 mL (0.083 %) Solution For Nebulization 2.5 mg inhalation PRN RF: 0 albuterol sulfate [ProAir HFA] 90 mcg/actuation Hfa Aerosol Inhaler 2 puff INHALATION Q4H PRN (Reason: Shortness Of Breath) RF: 0 Combivent Respimat 20-100 mcg/actuation mist 1 puff INHALATION QID PRN (Reason: Shortness Of Breath) RF: 0 Ozempic 0.25 mg or 0.5 mg(2 mg/1.5 mL) pen injector 0.5 mg SUBCUT Q7D RF: 0 methylprednisolone [Medrol (Juan Carlos)] 4 mg tablets,dose pack See Rx Instructions .ROUTE .COMPLEX Qty: 21 RF: 0 azithromycin 250 mg tablet 250 mg PO DAILY 10 Days Qty: 10 RF: 0 Benadryl 25 mg Capsule 25 mg PO PRN RF: 0 metformin 750 mg Tablet Extended Release 24 Hr 750 mg PO BID RF: 0 Discharge Orders: Discharge ED (Routine); Ordered 12/28/20 Ordered By: Jose Muniz Referrals: Juanjo Chu Jr, MD [Primary Care Provider] - Discharge Diet: Advance as tolerated and Clear Liquid Patient Instructions: Diverticulitis (ED), Clear Liquid Diet (ED), Diverticulitis Diet (ED) Activity Restrictions/Additional Instructions: Follow-up with medical provider as directed later this week to be reevaluated. Take medications as prescribed. Start with a clear liquid diet then slowly advance diet as tolerated. Continue taking all other medications. Take 3 more days worth of the azithromycin and then stop. Return to the ER or your medical provider if condition worsens. Please read and understand discharge instructions. If any questions, please ask. Coding Level of Care Code ED License Distributor for Jenna Fwd Exam Comprehensive
[2020-12-28] MEDS: ipratropium-albuterol 3 mL Neb 6 ML INHALATION (09:34)
[2020-12-28] MEDS: ondansetron 2 mg/ML SDV 2 mL 4 MG IVP ×2 (10:30→12:46)
[2020-12-28 10:31] LABS: Basophils % 0.2 %; Eosinophils % 0.1 %; Hematocrit 38.2 % (42.0-52.0); Hemoglobin 12.5 g/dL (11.7-16.6); Lymphocytes # 1.3 10^3/uL (0.8-4.8); Lymphocytes % 7.9 %; Mean Corpuscular HGB Conc 32.7 g/dL (30.0-36.0); Mean Corpuscular Hemoglobin 30.6 pg (28.0-34.0); Mean Corpuscular Volume 93.4 fL (80-94); Mean Platelet Volume 10.9 fL (7.4-10.4); Monocytes # 1.2 10^3/uL (0.2-0.9); Monocytes % 6.9 %; Neutrophils # 14.21 10^3/uL (1.8-7.7); Neutrophils % 83.9 %; Nucleated Red Blood Cells % 0 %; Platelet Count 147 10^3/cmm (130-400); Red Blood Count 4.09 10^6/uL (4.1-5.3); Red Cell Distribution Width 12.3 % (12.1-15.1); White Blood Count 16.9 10^3/uL (4.0-10.0)
[2020-12-28 10:33] LABS: Glucose Point of Care 252 mg/dL (70-110)
[2020-12-28] MEDS: FUROsemide 10 mg/mL SDV 2mL 20 MG IVP (11:07)
--- NOTE | 2020-12-28 11:18 | CTR_ITS ---
PROCEDURE INFORMATION: Exam: CT Abdomen And Pelvis With Contrast Exam date and time: 12/28/2020 11:38 AM Age: 75 years old Clinical indication: Abdominal pain; Localized; Right lower quadrant (rlq); Additional info: Rlq abdominal pain TECHNIQUE: Imaging protocol: Computed tomography of the abdomen and pelvis with contrast. Radiation optimization: All CT scans at this facility use at least one of these dose optimization techniques: automated exposure control; mA and/or kV adjustment per patient size (includes targeted exams where dose is matched to clinical indication); or iterative reconstruction. Contrast material: OMNI 300; Contrast volume: 95 ml; Contrast route: INTRAVENOUS (IV); COMPARISON: No relevant prior studies available. RADIATION DOSE METRICS: Total DLP (mGy-cm): 1811.85 FINDINGS: Tubes, catheters and devices: Pacemaker leads noted. Lungs: Subpleural scarring noted in the right lower lung. Heart: Mildly enlarged heart. Coronary atherosclerotic calcifications seen. No pericardial effusion. Liver: A tiny calcified granuloma is noted in the right hepatic lobe. The liver is otherwise unremarkable. Gallbladder and bile ducts: Normal. No calcified stones. No ductal dilation. Pancreas: Normal. No ductal dilation. Spleen: There is tiny calcific densities scattered throughout the spleen, likely sequela of previous granulomatous disease. The spleen is otherwise unremarkable. An accessory splenule is incidentally noted in the left upper quadrant. Adrenal glands: Normal. No mass. Kidneys and ureters: Small cysts measuring 1.2 and 1.3 cm are noted in the right kidney. Symmetric enhancement of the kidneys without evidence of mass lesion. No hydronephrosis or nephrolithiasis. Stomach and bowel: There is thickening of the proximal ascending colon wall, in association with stranding of the surrounding fat, which may represent diverticulitis or colitis. There is scattered colonic diverticuli. No evidence of free air or fluid collection to suggest perforation. Appendix: No evidence of appendicitis. Intraperitoneal space: Surgical clips are seen scattered throughout the pelvis. No free air or discrete fluid collection identified. Vasculature: Severe diffuse atherosclerotic disease is present. Right common iliac artery stent noted. Lymph nodes: Unremarkable. No enlarged lymph nodes. Urinary bladder: Unremarkable as visualized. Reproductive: Unremarkable as visualized. Bones/joints: Degenerative changes of the spine seen. Median sternotomy changes noted. Soft tissues: A small fat containing left inguinal hernia is present. CT/CT abdomen pelvis w con* [id number] IMPRESSION: Inflammatory changes of the proximal ascending colon. Diagnostic considerations include diverticulitis and colitis. COMMENTS: Consistent with the [employer]'s Incidental Findings Committee white paper (J Am Curtis Radiol 2018): Any incidental renal lesion less than 1 cm or classified as too small to characterize, or any incidental cystic renal lesion characterized as simple-appearing, is likely benign. No follow-up imaging is recommended for these lesions per consensus recommendations based on imaging criteria. Radiation Dose CTDIVOL = (mGy): DLP = 1811.85 (mGy-cm)
[2020-12-28] MEDS: iohexol 300 mg/mL 100 mL Btl IV (11:46)
[2020-12-28] MEDS: sulfamethoxazole-trimeth DS 160-800 mg Tablet 1 TAB PO (12:39)
[2020-12-28] MEDS: metroNIDAZOLE 500 MG Tablet PO (12:40)
[2020-12-28 12:41] LABS: Alanine Aminotransferase 15 U/L (0-41); Albumin Level 4.6 g/dL (3.5-5.2); Alkaline Phosphatase 45 IU/L (40-130); Anion Gap 21.6 (5-19); Aspartate Amino Transferase 18 U/L (0-40); Blood Urea Nitrogen 19 mg/dL (8-23); Calcium 9.6 mg/dL (8.5-10.5); Carbon Dioxide 21 mmol/L (22-29); Chloride 98 mmol/L (98-107); Globulin 2.7 g/dL (1.3-4.6); Glucose 234 mg/dL (65-115); Lipase 18 U/L (13-60); Osmolality Calculated 292 mOsm/kg (285-295); Potassium 4.6 mmol/L (3.5-5.1); Sodium 136 mmol/L (136-145); Total Bilirubin 0.5 mg/dL (0.15-1.2); Total Protein 7.3 g/dL (6.6-8.7)
[2020-12-28] MEDS: morphine 4 mg/mL SDV 1 mL 2 MG IVP (13:24)
--- NOTE | 2020-12-28 13:46 | PC.NURSE ---
Denies pain and nausea. Feeling better.
[2020-12-28] MEDS: HYDROcodone-acetaminophen 5-325 mg Tablet 2 TAB PO (14:05)
== END 2020-12-28 14:19 | disposition home or self-care (01) ==
PROVIDERS: Emergency Provider Physician Assistant; PCP Orthopaedic Surgery Sports Medicine
DX: K57.92 Diverticulitis of intestine, part unspecified, without perforation or abscess without bleeding (principal); Z79.4 Long term (current) use of insulin; Z79.82 Long term (current) use of aspirin; I25.10 Atherosclerotic heart disease of native coronary artery without angina pectoris; J44.9 Chronic obstructive pulmonary disease, unspecified; E11.9 Type 2 diabetes mellitus without complications; E78.5 Hyperlipidemia, unspecified; I10 Essential (primary) hypertension; Z95.0 Presence of cardiac pacemaker; Z95.1 Presence of aortocoronary bypass graft; Z87.891 Personal history of nicotine dependence
CPT/HCPCS: 36416; 71045; 74177; 80053; 82962; 83690; 85025; 94640; 96374; 96375; 96376; 99284; J1940; J2270; J2405; Q9967

== ENCOUNTER 2021-03-27 20:25 | Emergency (ER) | payer OTHER, MEDICARE, BC, SELFPAY ==
[2021-03-27 20:35] VITALS: BP 146/98; PULSE 100; RESP 16; TEMP 36.7; O2SAT 95; BMI 30.9
--- NOTE | 2021-03-27 20:37 | XRR_ITS ---
PROCEDURE INFORMATION: Exam: XR Chest Exam date and time: 03/27/2021 8:44 PM Age: 76 years old Clinical indication: Other: Chest pain; Prior surgery; Surgery date: 6+ months; Surgery type: Open heart; Additional info: Cp TECHNIQUE: Imaging protocol: XR of the chest. Views: 1 view. COMPARISON: CR XR chest 1V portable [id number] 12/28/2020 9:23 AM FINDINGS: Tubes, catheters and devices: Pacemaker. Lungs: Bibasilar minimal atelectasis versus infiltrate. Pleural spaces: Unremarkable. No pleural effusion. No pneumothorax. Heart/Mediastinum: Cardiomegaly. Bones/joints: Sternotomy wires. XR/XR chest 1V portable [id number] IMPRESSION: 1. Cardiomegaly. 2. Bibasilar minimal atelectasis versus infiltrate.
--- NOTE | 2021-03-27 20:38 | ECG_ITS ---
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
[2021-03-27 20:58] LABS: Basophils # 0.1 10^3/uL (0.0-0.1); Basophils % 0.6 %; Eosinophils # 0.6 10^3/uL (0.0-0.8); Eosinophils % 5.7 %; Hematocrit 40.8 % (42.0-52.0); Hemoglobin 13.6 g/dL (11.7-16.6); Lymphocytes # 3.8 10^3/uL (0.8-4.8); Lymphocytes % 39.4 %; Mean Corpuscular HGB Conc 33.3 g/dL (30.0-36.0); Mean Corpuscular Hemoglobin 29.2 pg (28.0-34.0); Mean Corpuscular Volume 87.7 fL (80-94); Monocytes # 0.7 10^3/uL (0.2-0.9); Monocytes % 7.1 %; Neutrophils # 4.47 10^3/uL (1.8-7.7); Neutrophils % 46.2 %; Nucleated Red Blood Cells % 0 %; Platelet Count 181 10^3/cmm (130-400); Red Blood Count 4.65 10^6/uL (4.1-5.3); Red Cell Distribution Width 12.8 % (12.1-15.1); White Blood Count 9.7 10^3/uL (4.0-10.0)
[2021-03-27 21:09] LABS: INR 1.41 (0.8-1.2)
[2021-03-27 21:11] LABS: Partial Thromboplastin Time 53.4 SECONDS (23.9-36.7)
[2021-03-27 21:12] VITALS: BP 120/76; PULSE 109; RESP 24; O2SAT 95
[2021-03-27 21:12] LABS: Troponin(5th) Baseline 15 ng/L (0-15)
[2021-03-27 21:16] LABS: Alanine Aminotransferase 13 U/L (0-41); Albumin Level 4.5 g/dL (3.5-5.2); Alkaline Phosphatase 53 IU/L (40-130); Anion Gap 20.3 (5-19); Aspartate Amino Transferase 22 U/L (0-40); Blood Urea Nitrogen 13 mg/dL (8-23); Calcium 9.3 mg/dL (8.5-10.5); Carbon Dioxide 24 mmol/L (22-29); Chloride 99 mmol/L (98-107); Creatine Phosphokinase 33 U/L (39-308); Globulin 2.4 g/dL (1.3-4.6); Glucose 132 mg/dL (65-115); NT Pro B Type Natriuretic Pept 1191 pg/mL (0-450); Osmolality Calculated 290 mOsm/kg (285-295); Potassium 4.3 mmol/L (3.5-5.1); Sodium 139 mmol/L (136-145); Total Bilirubin 0.5 mg/dL (0.15-1.2); Total Protein 6.9 g/dL (6.6-8.7)
[2021-03-27 21:30] VITALS: BP 110/77; PULSE 95; RESP 19; O2SAT 96
--- NOTE | 2021-03-27 22:36 | W.ED.CHESTPA ---
HPI - Chest Pain General: Chief Complaint: Chest Pain Stated Complaint: CP Time Seen by Provider: 03/27/21 20:27 History of Present Illness: HPI narrative: [id number] gentleman with a long history of coronary artery disease going back to the late 1980s. He had multiple balloon angioplasties, coronary bypass graft, cardiac catheterization with stent placement since that time. His last stent was placed around 10 years ago he says. He was cooking dinner tonight, when suddenly he got chest discomfort. Nitroglycerin helped his pain from a 10 down to a 0-1. He denies any cough, fever, other acute symptoms. MD complaint: chest pain Pertinent past history: coronary artery disease and prior IA Onset (ago): minute(s) Timing of current episode: constant and now resolved Prior episodes: Yes Onset: during rest Pain location: substernal Pain radiation: jaw/teeth Severity: severe Quality: aching Relieving factors: nitroglycerin Exacerbating factors: nothing Associated symptoms: Deny abdominal pain, diaphoresis, dyspnea, fever(s), leg edema or palpitations Review of Systems Const: Denies: fever(s) or diaphoresis Eyes: Denies: change in vision Card: Reports: chest pain; Denies: palpitations Resp: Denies: dyspnea GI: Denies: abdominal pain : Denies: flank pain Neuro: Denies: headache(s) or numbness in extremities [facility] ED PFSH: Medical History (Updated 03/27/21 @ 23:15 by Chino Verdin DO) CAD (coronary artery disease) Chronic episodic atrial fibrillation COPD (chronic obstructive pulmonary disease) Diabetes Hyperlipidemia Hypertension Pacemaker PUD (peptic ulcer disease) PVD (peripheral vascular disease) Surgical History H/O mastectomy History of prostatectomy Hx of CABG Family History Other CAD (coronary artery disease) Cancer Diabetes Social History Smoking and tobacco status: former smoker Alcohol intake: current Alcohol intake frequency: holidays/special occasions only Physical Exam Const: GENERAL APPEARANCE: well developed ORIENTATION/CONSCIOUSNESS: Yes oriented to person, Yes oriented to place and Yes oriented to time HENMT: COMMON NORMALS: normocephalic, external ears normal and Normal external nose present HEAD & SCALP: normocephalic FACE & SINUS: normal facial exam NOSE: Normal external nose present and No nasal discharge present EXTERNAL EAR: Yes external ears normal Eye: COMMON NORMALS: Equal, round and reactive pupils present, EOMs intact bilaterally and conjunctivae normal EYELID: eyelids normal CONJUNCTIVA: Yes conjunctivae normal PUPIL: Yes Equal, round and reactive pupils present Neck/C-Spine: GENERAL: No tracheal deviation Chest: COMMONS NORMALS: normal inspection of the chest CHEST: No tenderness Resp: COMMON NORMALS: clear to auscultation bilaterally EFFORT & INSPECTION: No tachypneic, No respiratory distress, No retractions, No uses accessory muscles and No tracheal deviation AUSCULTATION: clear to auscultation bilaterally, no rhonchi, no wheezes and lung sounds not diminished Cardio: COMMON NORMALS: regular rate and regular rhythm RATE: regular rate RHYTHM: regular rhythm HEART SOUNDS: no murmurs PERIPHERAL PULSES: radial pulses present GI: INSPECTION: No abdominal distension AUSCULTATION: No Hyperactive bowel sounds present and No Hypoactive bowel sounds present PALPATION: No Guarding due to palpation present (GI) and No Rigid due to palpation PERCUSSION: no dullness to percussion and no tympanic to percussion Neuro: SENSORIUM/ORIENTATION: Yes oriented to person, Yes oriented to place and Yes oriented to time Psych: COMMON NORMALS: mental status grossly normal Skin: COMMON NORMALS: no rashes or lesions noted GENERAL SKIN EXAM: no rashes or lesions noted Course Vital Signs: Vital signs: Vital Signs Temperature 98.1 F 03/27/21 20:35 Pulse Rate 86 03/27/21 23:36 Respiratory Rate 16 03/27/21 23:36 Blood Pressure 134/74 03/27/21 23:36 Pulse Oximetry 98 03/27/21 23:36 MDM - Chest Pain MDM Narrative: Medical decision making narrative: 6-year-old male with a long history of coronary disease. His chest pain is resolved. He states that he feels normal . His EKG showed a sinus rhythm with no acute ST changes x2. His troponin did not elevate and remained negative at 2 hours. His other laboratory is benign. His chest x-ray is negative he was given the option to stay in observation, but wished to go home given his test results. Since he is pain-free we will allow him to do so. He knows to return for any return of the pain. He states that he lives 5 minutes away Lab Data: Labs: Lab Results 03/27/21 03/27/21 03/27/21 Range/Units 20:10 20:10 20:10 WBC 9.7 (4.0-10.0) 10^3/ uL RBC 4.65 (4.1-5.3) 10^6/u L Hgb 13.6 (11.7-16.6) g/dL Hct 40.8 L (42.0-52.0) % MCV 87.7 (80-94) fL MCH 29.2 (28.0-34.0) pg MCHC 33.3 (30.0-36.0) g/dL RDW 12.8 (12.1-15.1) % Plt Count 181 (130-400) 10^3/c mm MPV 11.0 H (7.4-10.4) fL Neut % (Auto) 46.2 % Lymph % (Auto) 39.4 % [place] % (Auto) 7.1 % Eos % (Auto) 5.7 % Baso % (Auto) 0.6 % Neut # (Auto) 4.47 (1.8-7.7) 10^3/u L Lymph # (Auto) 3.8 (0.8-4.8) 10^3/u L [place] # (Auto) 0.7 (0.2-0.9) 10^3/u L Eos # (Auto) 0.6 (0.0-0.8) 10^3/u L Baso # (Auto) 0.1 (0.0-0.1) 10^3/u L Nucleated RBC % (a uto) 0 % Nucleated RBCs # 0.0 /100WBC PT 17.60 H (12.1-14.9) SECO NDS INR 1.41 H (0.8-1.2) APTT 53.4 H (23.9-36.7) SECO NDS Sodium 139 (136-145) mmol/L Potassium 4.3 (3.5-5.1) mmol/L Chloride 99 (98-107) mmol/L Carbon Dioxide 24 (22-29) mmol/L Anion Gap 20.3 H (5-19) BUN 13 (8-23) mg/dL Creatinine 0.9 (0.7-1.2) mg/dL GFR Calculation Not Reportable Glucose 132 H (65-115) mg/dL Calculated Osmolal ity 290 (285-295) mOsm/k g Calcium 9.3 (8.5-10.5) mg/dL Total Bilirubin 0.5 (0.15-1.2) mg/dL AST 22 (0-40) U/L ALT 13 (0-41) U/L Alkaline Phosphata se 53 (40-130) IU/L Creatine Kinase 33 L (39-308) U/L Troponin T Baselin e (0-15) ng/L Troponin T 120 Min krishan (0-15) ng/L Delta Troponin T (0-10) ABS# NT-Pro-B Natriuret Pep 1191 H (0-450) pg/mL Total Protein 6.9 (6.6-8.7) g/dL Albumin 4.5 (3.5-5.2) g/dL Globulin 2.4 (1.3-4.6) g/dL 03/27/21 03/27/21 Range/Units 20:10 22:04 WBC (4.0-10.0) 10^3/ uL RBC (4.1-5.3) 10^6/u L Hgb (11.7-16.6) g/dL Hct (42.0-52.0) % MCV (80-94) fL MCH (28.0-34.0) pg MCHC (30.0-36.0) g/dL RDW (12.1-15.1) % Plt Count (130-400) 10^3/c mm MPV (7.4-10.4) fL Neut % (Auto) % Lymph % (Auto) % [place] % (Auto) % Eos % (Auto) % Baso % (Auto) % Neut # (Auto) (1.8-7.7) 10^3/u L Lymph # (Auto) (0.8-4.8) 10^3/u L [place] # (Auto) (0.2-0.9) 10^3/u L Eos # (Auto) (0.0-0.8) 10^3/u L Baso # (Auto) (0.0-0.1) 10^3/u L Nucleated RBC % (a uto) % Nucleated RBCs # /100WBC PT (12.1-14.9) SECO NDS INR (0.8-1.2) APTT (23.9-36.7) SECO NDS Sodium (136-145) mmol/L Potassium (3.5-5.1) mmol/L Chloride (98-107) mmol/L Carbon Dioxide (22-29) mmol/L Anion Gap (5-19) BUN (8-23) mg/dL Creatinine (0.7-1.2) mg/dL GFR Calculation Glucose (65-115) mg/dL Calculated Osmolal ity (285-295) mOsm/k g Calcium (8.5-10.5) mg/dL Total Bilirubin (0.15-1.2) mg/dL AST (0-40) U/L ALT (0-41) U/L Alkaline Phosphata se (40-130) IU/L Creatine Kinase (39-308) U/L Troponin T Baselin e 15 (0-15) ng/L Troponin T 120 Min krishan 12.25 (0-15) ng/L Delta Troponin T -2.75 L (0-10) ABS# NT-Pro-B Natriuret Pep (0-450) pg/mL Total Protein (6.6-8.7) g/dL Albumin (3.5-5.2) g/dL Globulin (1.3-4.6) g/dL Discharge Plan Discharge Patient Disposition: Home Clinical Impression: Chest pain Qualifiers: Chest pain type: unspecified Qualified Code(s): R07.9 - Chest pain, unspecified CAD (coronary artery disease) Qualifiers: Coronary Disease-Associated Artery/Lesion type: unspecified vessel or lesion type Condition: Stable Prescriptions: No Action metoprolol tartrate 50 mg tablet 50 mg PO BID@, RF: 0 vitamin G29-ovzjr acid 500-400 mcg tablet 1 tab PO DAILY@ RF: 0 ferrous sulfate 325 mg (65 mg iron) tablet 325 mg PO DAILY@ RF: 0 furosemide 20 mg tablet 20 mg PO DAILY@ RF: 0 Lantus U-100 Insulin 100 unit/mL solution 50 unit SUBCUT DAILY@ RF: 0 magnesium 200 mg tablet 400 mg PO BID@ RF: 0 rosuvastatin 20 mg tablet 10 mg PO DAILY@ RF: 0 Pradaxa 150 mg capsule 150 mg PO BID@ RF: 0 pantoprazole 40 mg tablet,delayed release (DR/EC) 40 mg PO DAILY@ RF: 0 lisinopril 20 mg tablet 20 mg PO DAILY@ RF: 0 aspirin [Adult Low Dose Aspirin] 81 mg tablet,delayed release (DR/EC) 81 mg PO DAILY@ RF: 0 nitroglycerin [Nitrostat] 0.4 mg tablet, sublingual 0.4 mg SUBLINGUAL Q5M PRN (Reason: Chest Pain) RF: 0 multivitamin Tablet 1 tab PO DAILY@00 RF: 0 albuterol sulfate 2.5 mg /3 mL (0.083 %) Solution For Nebulization 2.5 mg inhalation PRN RF: 0 albuterol sulfate [ProAir HFA] 90 mcg/actuation Hfa Aerosol Inhaler 2 puff INHALATION Q4H PRN (Reason: Shortness Of Breath) RF: 0 Combivent Respimat 20-100 mcg/actuation mist 1 puff INHALATION QID PRN (Reason: Shortness Of Breath) RF: 0 Ozempic 0.25 mg or 0.5 mg(2 mg/1.5 mL) pen injector 0.5 mg SUBCUT Q7D RF: 0 diphenhydramine HCl [Benadryl] 25 mg Capsule 25 mg PO PRN RF: 0 metformin 750 mg Tablet Extended Release 24 Hr 750 mg PO BID@0900,2100 RF: 0 ondansetron HCl [Zofran] 4 mg tablet 4 mg PO Q8H PRN (Reason: nausea and vomiting) Qty: 20 RF: 0 cetirizine 10 mg Tablet 10 mg PO DAILY@0900 RF: 0 montelukast 10 mg tablet 10 mg PO DAILY@0900 RF: 0 fluticasone furoate 27.5 mcg/actuation [place],Suspension 2 spray INTRANASAL DAILY RF: 0 Discharge Orders: Discharge ED (Routine); Ordered 03/27/21 Ordered By: Chino Verdin Referrals: Alesha Hylton MD [Primary Care Provider] - 1-3 days Discharge Diet: Advance as tolerated Discharge Activity: Increase activity as tolerated Patient Instructions: Chest Pain (ED) Activity Restrictions/Additional Instructions: Return immediately to the emergency room for return of chest discomfort, shortness of breath, vomiting, fever, cough, any other concerning symptoms. Call your doctor Tuesday to let them know you were here, as further outpatient tests may be needed. Coding Level of Care Code ED Christian Counselor for Jenna Fwd Exam Comprehensive
--- NOTE | 2021-03-27 22:38 | ECG_ITS ---
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 vincent medical centerLifeShield Security/store/OM/[id number]
[2021-03-27 22:42] VITALS: BP 120/77; PULSE 88; RESP 18; O2SAT 96
[2021-03-27 22:44] LABS: Troponin 5 2HR 12.25 ng/L (0-15)
[2021-03-27 22:46] LABS: Troponin 5 2HR Delta -2.75 ABS# (0-10)
[2021-03-27 23:36] VITALS: BP 134/74; PULSE 86; RESP 16; O2SAT 98
== END 2021-03-27 23:37 | disposition home or self-care (01) ==
PROVIDERS: Emergency Provider Emergency Medicine; PCP Family Medicine
DX: R07.9 Chest pain, unspecified (principal); I25.10 Atherosclerotic heart disease of native coronary artery without angina pectoris; Z79.82 Long term (current) use of aspirin; Z79.4 Long term (current) use of insulin; J44.9 Chronic obstructive pulmonary disease, unspecified; E11.9 Type 2 diabetes mellitus without complications; E78.5 Hyperlipidemia, unspecified; I10 Essential (primary) hypertension; Z95.0 Presence of cardiac pacemaker; Z95.1 Presence of aortocoronary bypass graft; Z87.891 Personal history of nicotine dependence
CPT/HCPCS: 36415; 71045; 80053; 82550; 83880; 84484; 85025; 85610; 85730; 93005; 99283

== ENCOUNTER 2021-06-19 08:10 | Outpatient (CLI) | payer OTHER, SELFPAY ==
[2021-06-19 08:23] VITALS: BMI 30.9
--- NOTE | 2021-06-19 08:26 | ECG_ITS ---
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 Interpretive Statements NAME OF STUDY: LEXISCAN SESTAMIBI STRESS TEST INDICATION: Shortness of Breath, PROCEDURE: At the baseline, the EKG revealed atrial fibrillation with demand V paced rhythm. 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 Nonspecific ST-T changes. The baseline blood pressure was 113/62 mm Hg with a heart rate of 73 beats/min. Lexiscan was infused over a period of 20 seconds. A total of 0.4 milligrams of Lexiscan was infused. The stress phase was continued for a total of 5 minutes. Heart rate at the end of the stress phase was 88 with a blood pressure 109/62. The EKG at the peak infusion revealed no significant changes. Sestamibi was injected 20 seconds after the Lexiscan infusion. Blood pressure at the end of the recovery phase was 106/62 with a heart rate of 75 per minute. CONCLUSION: 1. No significant EKG changes with the LexiScan infusion 2. No LexiScan induced chest pain or cardiac arrhythmia 3. Normal blood pressure and heart rate response 4. Sestamibi/sestamibi perfusion scan pending; see separate report. Electronically Signed On 06-22-2021 17:53:42 CDT by Frandy Patel M.D. [id number]
--- NOTE | 2021-06-19 08:27 | NMCV_ITS ---
NM wendi perf SPECT r/s* [id number] DentonYvon concepcion Age: 76 Gender: M : 1945 Exam Date: 06/19/2021 08:27 Ordering Phys: Frandy Patel MD ([email or web address]) Technologist: JOJO Edwards Exam Location: [facility] Indications: SHORTNESS OF BREATH STRESS TEST Please see separate stress test report in [facility] for full findings IMAGE PROTOCOL Rest/Stress 1 Lexiscan Day Radiopharmaceutical Dose (mCi) Administration Site Administered by Rest: Tc-99m 10.6 IV JOJO He Sestamibi Stress:Tc-99m 32.8 IV JOJO He Sestamibi Rest: 19-Jun-2021 60 Discovery 630 Stress: 19-Jun-2021 30 Discovery 630 0.4mg Lexiscan. Images obtained in supine and prone position. SPECT RESULTS Technical Quality: Excellent Raw Data Analysis: Normal Image Corrections: No attenuation or motion correction applied Summed Stress Score: 2 Summed Rest Score: 1 Summed Difference Score: 1 PERFUSION FINDINGS Small area of decreased tracer uptake was noted in the apical lateral region, with a subtle area of reversibility. Small area of decreased tracer uptake was noted in the mid and apical inferior wall region, with no significant reversibility FUNCTIONAL RESULTS (calculated via Gated SPECT) Stress Image LV EF (%): 76 Stress EDV (mL):75 TID: 1.1 Stress ESV (mL):18 FUNCTIONAL FINDINGS: Segmental wall motion analysis revealing mild diffuse hypokinesia of the septum and the LV apex IMPRESSIONS 1. Myocardial perfusion imaging revealing small area of reversible defect in the apical lateral region, suggestive of myocardial scarring with ischemia in distribution of the left circumflex artery. Area of fixed defect in the inferior wall region, suggestive of myocardial scarring versus attenuation artifact. 2. Normal LV ejection fraction 76%. 3. LV wall motion analysis revealing no gross wall motion normalities. 4. Normal LV volume No similar previous studies are available for comparison Dr Frandy Patel MD FACC (Electronically Signed) Final Date: 19 June 2021 13:31 S
[2021-06-19] MEDS: regadenoson 0.4 Mg/5 ml Syringe IVP (10:09)
[2021-06-19 10:11] VITALS: BP 106/62; PULSE 71
== END 2021-06-19 08:11 | disposition home or self-care (01) ==
LOC: CDL 08:10
PROVIDERS: PCP Family Medicine; Visit Provider Internal Medicine Cardiovascular Disease
DX: I20.9 Angina pectoris, unspecified (principal); R06.02 Shortness of breath
CPT/HCPCS: 78452; 93017; A9500; J2785

== ENCOUNTER 2021-07-16 07:26 | Outpatient (CLI) | payer OTHER, SELFPAY ==
--- NOTE | 2021-07-16 08:00 | USCV_ITS ---
Yvon Trujillo Age: 76 Gender: M : 1945 Exam Date: 07/16/2021 07:43 Ordering Phys: Frandy Patel MD ([email or web address]) Technologist: Liliana Sawant Exam Location: [facility] [place] Indication: PVD Risk Factors: Previous Vascular Surgery: PT UNSURE OF PREV SURGERY RIGHT LEFT BP: 106.0 / 58.00 BP: 116.0/ 66.00 0 0 Waveform Velocity (cm/s) Velocity (cm/s) Waveform Monophasic 145.1 Iliac Prox 69.3 Biphasic Monophasic Iliac Mid Biphasic 112.3 115.8 Monophasic 113.4 Iliac Distal 56.2 Biphasic Monophasic 69.9 MANAGER METAL 55.6 Biphasic Monophasic 51.9 SFA Prox 74.6 Biphasic Monophasic 46.0 SFA Mid 55.9 Biphasic Monophasic 40.1 SFA Dist 58.3 Biphasic Monophasic 27.8 POP 38.5 Monophasic Monophasic 32.8 RECYCLING ATTENDANT 35.1 Monophasic Monophasic 25.1 DPA 14.6 Monophasic MONIQUE 1.6 FINDINGS RT DPA, RT RECYCLING ATTENDANT, LT RECYCLING ATTENDANT >220 LT DPA 190 MONIQUE Supranormal resting ABIs bilaterally Moderate intravenous plaques in the iliac and femoral arteries bilaterally CONCLUSIONS Moderate plaques bilaterally in the iliac and femoral arteries. Supranormal resting ABIs bilaterally. Consider TBI, to further evaluate for the PAD Dr Frandy Patel MD FACC (Electronically Signed) Final Date: 16 July 2021 15:47 S
--- NOTE | 2021-07-16 08:45 | USCV_ITS ---
Yvon Trujillo Age: 76 Gender: M : 1945 Exam Date: 07/16/2021 08:24 Ordering Phys: Frandy Patel MD ([email or web address]) Technologist: Liliana Sawant [place] [facility] [place]ication: nonrhuematic aortic valve stenosis BP: / HR: 74 Rhythm: Sinus Technical Quality: Adequate MEASUREMENTS (Male / Female) Normal Values 2D ECHO LV Diastolic Diameter PLAX 4.5 cm 4.2 - 5.9 / 3.9 - 5.3 cm LV Systolic Diameter PLAX 3.2 cm IVS Diastolic Thickness 1.1 cm 0.6 - 1.0 / 0.6 - 0.9 cm IVS Systolic Thickness 1.4 cm LVPW Diastolic Thickness 1.1 cm 0.6 - 1.0 / 0.6 - 0.9 cm LVPW Systolic Thickness 1.5 cm LVOT Diameter 2.0 cm LV Ejection Fraction 2D Teich 56.4 % LV Ejection Fraction MOD 2C 51.8 % LV Ejection Fraction 2C AL 54.1 % LA Diameter 4.9 cm LA Width 4.0 cm LA Height 5.1 cm RA Width 3.5 cm RA Height 5.2 cm Aorta at Sinotubular Diameter 1.6 cm DOPPLER AV Peak Velocity 273.0 cm/s LVOT Peak Velocity 66.0 cm/s AV Area Cont Eq vti 0.8 cm squared AV Area Cont Eq pk 0.8 cm squared TR Peak Velocity 280.0 cm/s TR Peak Gradient 31.4 mmHg TV Peak E Velocity 132.0 cm/s Right Atrial Pressure 3.0 mmHg Pulmonary Artery Systolic Pressu 34.4 mmHg PV Peak Velocity 90.0 cm/s RV Acceleration Time 0.1 s RV Ejection Time 0.3 s RV AcT/ET 0.2 FINDINGS Left Ventricle Normal left ventricular size and systolic function, EF 56%. Mild left ventricular hypertrophy. Mild hypokinesis of mid and apical septum and the anteroseptal segments Right Ventricle The right ventricle is normal in size and function. Right Atrium Mildly increased right atrial size. Pacemaker wire in the right atrium Left Atrium Mildly increased left atrial size. Mitral Valve Thickened mitral valve. Mild mitral annular calcification. Mild mitral valve regurgitation. Aortic Valve Low gradient severe aortic valve stenosis with a peak velocity of 2.73 m/s. Valve area was calculated to be 0.8 cm squared Tricuspid Valve Trace tricuspid valve regurgitation. Pulmonic Valve Pulmonic valve not well visualized. Pericardium No pericardial effusion. Aorta Normal aortic annulus size. CONCLUSIONS Normal left ventricular size and systolic function, EF 56%. Mild left ventricular hypertrophy. Mild hypokinesis of mid and apical septum and the anteroseptal segments Mild biatrial enlargement. Thickened mitral valve. Mild mitral annular calcification. Mild mitral valve regurgitation. Low gradient severe aortic valve stenosis with a peak velocity of 2.73 m/s. Valve area was calculated to be 0.8 cm squared Trace tricuspid valve regurgitation. There is no pericardial effusion. Compared to the study from 07/10/2019, there may not be a significant change Dr Frandy Patel MD FACC (Electronically Signed) Final Date: 16 July 2021 16:43 S
== END 2021-07-16 07:27 | disposition home or self-care (01) ==
LOC: US 07:28
PROVIDERS: PCP Family Medicine; Visit Provider Internal Medicine Cardiovascular Disease
DX: I73.9 Peripheral vascular disease, unspecified (principal); I08.3 Combined rheumatic disorders of mitral, aortic and tricuspid valves; I70.8 Atherosclerosis of other arteries
CPT/HCPCS: 93306; 93925

== ENCOUNTER → 2021-08-03 10:17 | Outpatient (BNVA) | payer OTHER, SELFPAY | PROVIDERS: PCP Family Medicine; Visit Provider Internal Medicine Cardiovascular Disease | DX: Z01.812 Encounter for preprocedural laboratory examination (principal); Z20.822 Contact with and (suspected) exposure to COVID-19; I48.20 Chronic atrial fibrillation, unspecified; E78.2 Mixed hyperlipidemia | CPT/HCPCS: 80048; 85025; 85610; 86850; 86900; 87635 ==

== ENCOUNTER 2021-08-04 08:22 | Emergency (ER) | payer OTHER, MEDICARE, SELFPAY ==
[2021-08-04 08:31] VITALS: BP 160/93; PULSE 86; RESP 20; O2SAT 97; BMI 30.9
--- NOTE | 2021-08-04 08:52 | CT_ITS ---
WS: [id number] CT ABDOMEN AND PELVIS WITH AND WITHOUT CONTRAST HISTORY: Abdominal pain. TECHNIQUE: Unenhanced 5 mm axial imaging first performed through the abdomen. Post contrast imaging t hrough the abdomen and pelvis. Oral contrast has not been provided. Sagittal and coronal reformats a re submitted. All CT scans at [facility] use at least one of these dose optimization techniqu es: automated exposure control; mA and/or kV adjustment per patient size (includes targeted exams whe re dose is matched to clinical indication); or iterative reconstruction. CONTRAST: Omnipaque 300; 95 mL IV. DLP: 1734.05 mGy.cm COMPARISON: 12/28/2020 Chronic emphysematous changes and scarring at the lung bases. Heart is slightly enlarged. Pacer wires are noted in the RIGHT heart. Small hiatal hernia. No effusion. Normal size liver with granulomata. No bile duct dilatation. Normal gallbladder. Normal spleen. Atrop hied of the pancreas with no acute pancreatitis. Tail of the pancreas is significantly atrophied. No adrenal mass. Moderate bilateral perinephric stranding with no obstruction. 6 mm hypodensity from the posterior RIGHT kidney. No solid masses. Neither ureter is dilated. No adenopathy or ascites. The appendix is normal. No GI tract obstruction. There are a few diverticul a in the sigmoid colon. Towards the rectum there is circumferential wall thickening and edema and muc osal thickening and small amount of fat stranding in the perirectal fat. Surgical clips in the pelvis probably from a prior prostatectomy. Degenerative disc disease throughout the lumbar spine. Extensive calcifications noted within the aorta and iliac arteries the femoral arteries. CT/CT abdomen pelvis wo/w [id number] IMPRESSION: 1. Moderate perirectal mucosal thickening and edema. Consider proctitis. Under lying neoplasm is not excluded. 2. Prior prostatectomy. 3. Mild diverticulosis without acute diverticulitis. 4. Normal appendix. 5. Moderate perinephric stranding with no obstruction of either kidney. 6. Extensive atherosclerosis of aorta, mesenteric arteries and iliac arteries.
[2021-08-04 09:08] VITALS: BP 147/121; PULSE 110; O2SAT 95
--- NOTE | 2021-08-04 09:17 | W.ED.GENADLT ---
HPI - General Adult General: Chief complaint: General Medical Stated complaint: Bowel Blockage Time Seen by Provider: 08/04/21 08:23 History of Present Illness: HPI narrative: 76-year-old male presents emergency room complaining of abdominal discomfort. He states he is unable to have a bowel movement. He states he felt like he had a bowel obstruction when she has had in the past. Shortly after arrival here he was able to have a bowel movement. He did have some reza hematochezia at home. He is on Pradaxa. Within the last year he had a normal colonoscopy. He has had problems with hemorrhoids in the past. Onset (ago): hour(s) Severity: mild Quality: aching Pain Consistency: intermittent Relieving factors: none Associated symptoms: Deny chest pain, confusion, cough, diaphoresis, decreased appetite, dyspnea, fevers/chills, headache(s), malaise, nausea, rash, palpitations, seizures, short of breath, syncope, vomiting or weakness Treatments prior to arrival: other (Suppository) Review of Systems Const: Denies: fever(s), chills, body aches, change in appetite, fatigue, malaise or diaphoresis ENMT: Denies: throat pain, ear or mastoid pain, nasal discharge or nasal congestion Card: Denies: chest pain, palpitations, edema, syncope, dyspnea on exertion or orthopnea Resp: Denies: dyspnea, productive cough or non-productive cough GI: Denies: abdominal pain, nausea, vomiting, hematemesis, coffee ground emesis, diarrhea, constipation, bloating, hematochezia or melena : Denies: flank pain, dysuria, urinary frequency or urinary urgency Skin/Breast: Denies: rash or pruritus Neuro: Denies: headache(s) or confusion PFS ED PFSH: Medical History (Updated 08/04/21 @ 13:18 by Juancarlos Arriaza DO) CAD (coronary artery disease) Chronic episodic atrial fibrillation COPD (chronic obstructive pulmonary disease) Diabetes Hyperlipidemia Hypertension Pacemaker PUD (peptic ulcer disease) PVD (peripheral vascular disease) Surgical History H/O mastectomy History of prostatectomy Hx of CABG Family History Other Adopted Social History Alcohol intake: current Alcohol intake frequency: holidays/special occasions only Physical Exam Const: COMMON NORMALS: no acute distress GENERAL APPEARANCE: cooperative and comfortable ORIENTATION/CONSCIOUSNESS: Yes awake, Yes oriented to person, Yes oriented to place and Yes oriented to time HENMT: COMMON NORMALS: normocephalic, atraumatic and hearing grossly normal bilaterally HEAD & SCALP: normocephalic and atraumatic Neck/C-Spine: COMMON NORMALS: no JVD Resp: COMMON NORMALS: normal respiratory effort, No retractions, No use of accessory muscles and clear to auscultation bilaterally AUSCULTATION: clear to auscultation bilaterally Cardio: COMMON NORMALS: no JVD, regular rate, regular rhythm and No murmurs present (Cardio) RATE: regular rate RHYTHM: regular rhythm GI: COMMON NORMALS: Soft to palpation and No hepatosplenomegaly present AUSCULTATION: Yes normoactive bowel sounds PALPATION: Yes Soft to palpation, Yes Tenderness to palpation present (GI) (Suprapubic left lower quadrant), No Guarding due to palpation present (GI) and Yes No hepatosplenomegaly present OTHER: On rectal exam moderately inflamed hemorrhoids noted no thrombosis. No evidence of rectal fissure. Extremity: COMMON NORMALS: normal to inspection, capillary refill normal, no clubbing, cyanosis or edema, no calf tenderness and no pedal edema Neuro: SENSORIUM/ORIENTATION: Yes oriented to person, Yes oriented to place and Yes oriented to time Skin: COMMON NORMALS: no rashes or lesions noted GENERAL SKIN EXAM: no rashes or lesions noted Course Vital Signs: Vital signs: Vital Signs Pulse Rate 115 H 08/04/21 13:16 Respiratory Rate 20 H 08/04/21 08:31 Blood Pressure 147/121 08/04/21 09:08 Pulse Oximetry 96 08/04/21 13:16 MDM - General Adult MDM Narrative: Medical decision making narrative: Labs and imaging reviewed evidence of colitis on CT we will go ahead and discharge home with Cipro and metronidazole he does have some moderate hemorrhoids on exam as well use Anusol topically feels follow-up as needed Lab Data: Labs: Lab Results 08/04/21 08/04/21 08/04/21 10:36 11:40 12:45 WBC RBC Hgb Hct MCV MCH MCHC RDW Plt Count MPV Neut % (Auto) Lymph % (Auto) [place] % (Auto) Eos % (Auto) Baso % (Auto) Neut # (Auto) Lymph # (Auto) [place] # (Auto) Eos # (Auto) Baso # (Auto) Nucleated RBC % (a uto) Nucleated RBCs # Sodium Potassium Chloride Carbon Dioxide Anion Gap BUN Creatinine GFR Calculation Glucose POC Glucose 103 mg/dL mg/dL (70-110) Calculated Osmolal ity Lactic Acid 2.1 mmol/L mmol/L (0.5-2.2) Calcium Total Bilirubin AST ALT Alkaline Phosphata se Total Protein Albumin Globulin Lipase Urine Color Straw (Yellow) Urine Appearance Clear (CLEAR) Urine pH 5 (5-7) Ur Specific Gravit y 1.015 (1.005-1.030) Urine Protein Neg (Negative) Urine Glucose (UA) Norm (Normal) Urine Ketones Negative (Negative) Urine Blood Neg (Negative) Urine Nitrate Negative (Negative) Urine Bilirubin Neg (Negative) Urine Urobilinogen Norm mg/dL mg/dL (Negative) Ur Leukocyte Tessa ase Negative (Negative) 08/04/21 08/04/21 12:45 12:45 WBC 14.6 10^3/uL H 10 ^3/uL (4.0-10.0) RBC 4.23 10^6/uL 10^6 /uL (4.1-5.3) Hgb 12.9 g/dL g/dL (11.7-16.6) Hct 39.1 % L % (42.0-52.0) MCV 92.4 fl fl (80-94) MCH 30.5 pg pg (28.0-34.0) MCHC 33.0 g/dL g/dL (30.0-36.0) RDW 12.3 % % (12.1-15.1) Plt Count 144 10^3/cmm 10^3 /cmm (130-400) MPV 10.7 fL H fL (7.4-10.4) Neut % (Auto) 80.1 % % Lymph % (Auto) 12.4 % % [place] % (Auto) 5.5 % % Eos % (Auto) 1.2 % % Baso % (Auto) 0.3 % % Neut # (Auto) 11.71 10^3/uL H 1 0^3/uL (1.8-7.7) Lymph # (Auto) 1.8 10^3/uL 10^3/ uL (0.8-4.8) [place] # (Auto) 0.8 10^3/uL 10^3/ uL (0.2-0.9) Eos # (Auto) 0.2 10^3/uL 10^3/ uL (0.0-0.8) Baso # (Auto) 0.1 10^3/uL 10^3/ uL (0.0-0.1) Nucleated RBC % (a uto) 0 % % Nucleated RBCs # 0.0 /100WBC /100W BC Sodium 133 mmol/L L mmol /L (136-145) Potassium 4.7 mmol/L mmol/L (3.5-5.1) Chloride 97 mmol/L L mmol/ L (98-107) Carbon Dioxide 22 mmol/L mmol/L (22-29) Anion Gap 18.7 (5-19) BUN 10 mg/dL mg/dL (8-23) Creatinine 0.7 mg/dL mg/dL (0.7-1.2) GFR Calculation Not Reportable Glucose 95 mg/dL mg/dL (65-115) POC Glucose Calculated Osmolal ity 275 mOsm/kg L mOs m/kg (285-295) Lactic Acid Calcium 8.8 mg/dL mg/dL (8.5-10.5) Total Bilirubin 0.4 mg/dL mg/dL (0.15-1.2) AST 19 U/L U/L (0-40) ALT 12 U/L U/L (0-41) Alkaline Phosphata se 48 IU/L IU/L (40-130) Total Protein 6.5 g/dL L g/dL (6.6-8.7) Albumin 4.1 g/dL g/dL (3.5-5.2) Globulin 2.4 g/dL g/dL (1.3-4.6) Lipase 18 U/L U/L (13-60) Urine Color Urine Appearance Urine pH Ur Specific Gravit y Urine Protein Urine Glucose (UA) Urine Ketones Urine Blood Urine Nitrate Urine Bilirubin Urine Urobilinogen Ur Leukocyte Tessa ase Discharge Plan Discharge Patient Disposition: Home Clinical Impression: Colitis, Diabetes, Hypertension, CAD (coronary artery disease) Condition: Stable Prescriptions: New Cipro 500 mg tablet 500 mg PO BID Qty: 14 RF: 0 metronidazole 500 mg tablet 500 mg PO BID 7 Days Qty: 14 RF: 0 Anusol-HC 2.5 % cream with perineal applicator 1 applic TX Q6H Qty: 30 RF: 0 No Action metoprolol tartrate 50 mg tablet 50 mg PO BID@, RF: 0 vitamin W63-lobhe acid 500-400 mcg tablet 1 tab PO DAILY@09 RF: 0 ferrous sulfate 325 mg (65 mg iron) tablet 325 mg PO DAILY@ RF: 0 furosemide 20 mg tablet 20 mg PO DAILY@ RF: 0 Lantus U-100 Insulin 100 unit/mL solution 50 unit SUBCUT DAILY@ RF: 0 magnesium 200 mg tablet 400 mg PO BID@, RF: 0 rosuvastatin 20 mg tablet 10 mg PO DAILY@ RF: 0 Pradaxa 150 mg capsule 150 mg PO BID@, RF: 0 pantoprazole 40 mg tablet,delayed release (DR/EC) 40 mg PO DAILY@ RF: 0 lisinopril 20 mg tablet 20 mg PO DAILY@ RF: 0 aspirin [Adult Low Dose Aspirin] 81 mg tablet,delayed release (DR/EC) 81 mg PO DAILY@ RF: 0 nitroglycerin [Nitrostat] 0.4 mg tablet, sublingual 0.4 mg SUBLINGUAL Q5M PRN (Reason: Chest Pain) RF: 0 tramadol 50 mg tablet 50 mg PO DAILY PRN (Reason: pain) RF: 0 budesonide-formoterol 160-4.5 mcg/actuation HFA aerosol inhaler 2 puff inhalation BID RF: 0 methocarbamol 750 mg tablet 750 mg PO TID RF: 0 multivitamin Tablet 1 tab PO DAILY@0900 RF: 0 albuterol sulfate 2.5 mg /3 mL (0.083 %) Solution For Nebulization 2.5 mg inhalation PRN RF: 0 albuterol sulfate [ProAir HFA] 90 mcg/actuation Hfa Aerosol Inhaler 2 puff INHALATION Q4H PRN (Reason: Shortness Of Breath) RF: 0 Combivent Respimat 20-100 mcg/actuation mist 1 puff INHALATION QID PRN (Reason: Shortness Of Breath) RF: 0 Ozempic 0.25 mg or 0.5 mg(2 mg/1.5 mL) pen injector 1 mg SUBCUT Q7D RF: 0 diphenhydramine HCl [Benadryl] 25 mg Capsule 25 mg PO PRN RF: 0 metformin 750 mg Tablet Extended Release 24 Hr 750 mg PO BID@0900,2100 RF: 0 ondansetron HCl [Zofran] 4 mg tablet 4 mg PO Q8H PRN (Reason: nausea and vomiting) Qty: 20 RF: 0 cetirizine 10 mg Tablet 10 mg PO DAILY@0900 RF: 0 montelukast 10 mg tablet 10 mg PO DAILY@0900 RF: 0 fluticasone furoate 27.5 mcg/actuation [place],Suspension 2 spray INTRANASAL DAILY RF: 0 Discharge Orders: Discharge ED (Routine); Ordered 08/04/21 Ordered By: Juancarlos Arriaza Referrals: Alesha Hylton MD [Primary Care Provider] - Discharge Diet: Clear Liquid Patient Instructions: Opioid Safety Coding Level of Care Code ED Agent for Chg Fwd Exam Comprehensive
[2021-08-04 10:40] LABS: Glucose Point of Care 103 mg/dL (70-110)
[2021-08-04 11:50] LABS: Add Urine Microscopic? NO; Charge for UA Resulting for Rev
[2021-08-04 11:54] LABS: Bilirubin Urine Neg (Negative); Blood Urine Neg (Negative); Glucose Urine UA Norm (Normal); Ketones Urine Negative (Negative); Leukocyte Esterase Urine Negative (Negative); Nitrate Urine Negative (Negative); Protein Urine Neg (Negative); Specific Gravity, Urine 1.015 (1.005-1.030); Urine Appearance Clear (CLEAR); Urine Color Straw (Yellow); Urobilinogen Urine Norm (Negative); pH Urine 5 (5-7)
[2021-08-04] MEDS: iohexol 300 mg/mL 100 mL Btl IV (12:17)
[2021-08-04 12:57] LABS: Basophils # 0.1 10^3/uL (0.0-0.1); Basophils % 0.3 %; Eosinophils # 0.2 10^3/uL (0.0-0.8); Eosinophils % 1.2 %; Hematocrit 39.1 % (42.0-52.0); Hemoglobin 12.9 g/dL (11.7-16.6); Lymphocytes # 1.8 10^3/uL (0.8-4.8); Lymphocytes % 12.4 %; Mean Corpuscular Hemoglobin 30.5 pg (28.0-34.0); Mean Corpuscular Volume 92.4 fl (80-94); Mean Platelet Volume 10.7 fL (7.4-10.4); Monocytes # 0.8 10^3/uL (0.2-0.9); Monocytes % 5.5 %; Neutrophils # 11.71 10^3/uL (1.8-7.7); Neutrophils % 80.1 %; Nucleated Red Blood Cells % 0 %; Platelet Count 144 10^3/cmm (130-400); Red Blood Count 4.23 10^6/uL (4.1-5.3); Red Cell Distribution Width 12.3 % (12.1-15.1); White Blood Count 14.6 10^3/uL (4.0-10.0)
[2021-08-04 13:16] VITALS: PULSE 115; O2SAT 96
[2021-08-04 13:26] LABS: Alanine Aminotransferase 12 U/L (0-41); Albumin Level 4.1 g/dL (3.5-5.2); Alkaline Phosphatase 48 IU/L (40-130); Anion Gap 18.7 (5-19); Aspartate Amino Transferase 19 U/L (0-40); Blood Urea Nitrogen 10 mg/dL (8-23); Calcium 8.8 mg/dL (8.5-10.5); Carbon Dioxide 22 mmol/L (22-29); Chloride 97 mmol/L (98-107); Globulin 2.4 g/dL (1.3-4.6); Glucose 95 mg/dL (65-115); Lipase 18 U/L (13-60); Osmolality Calculated 275 mOsm/kg (285-295); Potassium 4.7 mmol/L (3.5-5.1); Sodium 133 mmol/L (136-145); Total Bilirubin 0.4 mg/dL (0.15-1.2); Total Protein 6.5 g/dL (6.6-8.7)
[2021-08-04 13:29] LABS: Lactic Sepsis W/Reflex 2.1 mmol/L (0.5-2.2)
[2021-08-04 14:41] LABS: Reflex Lactate Order REFLEX LACTIC ORDERD
== END 2021-08-04 14:05 | disposition home or self-care (01) ==
PROVIDERS: Emergency Provider Family Medicine; PCP Family Medicine
DX: K52.9 Noninfective gastroenteritis and colitis, unspecified (principal); E11.9 Type 2 diabetes mellitus without complications; I10 Essential (primary) hypertension; I25.10 Atherosclerotic heart disease of native coronary artery without angina pectoris; Z79.84 Long term (current) use of oral hypoglycemic drugs; Z79.82 Long term (current) use of aspirin; Z79.4 Long term (current) use of insulin; J44.9 Chronic obstructive pulmonary disease, unspecified; E78.5 Hyperlipidemia, unspecified; Z95.0 Presence of cardiac pacemaker; Z95.1 Presence of aortocoronary bypass graft
CPT/HCPCS: 36416; 74178; 80053; 81003; 82962; 83605; 83690; 85025; 99283; Q9967

== ENCOUNTER 2021-08-07 13:54 | Observation (INO) | payer OTHER, SELFPAY ==
[2021-08-07] VITALS (8 sets, daily range): BP systolic 109–140; BP diastolic 73–84; PULSE 61–91; RESP 16–24; TEMP 36.4–36.8; O2SAT 96–98; BMI 32.2
--- NOTE | 2021-08-07 11:00 | XACV_ITS ---
Ht: 163 cm Wt: 85 kg BSA: 1.99 m2 Gender: Male : 1945 Any Known Allergies: Other Exam Priority: Routine Procedure(s): Procedure Description: Diagnostic procedure Procedure Description: Left Heart Catheterization Procedure Description: Venous Graft Catheterization Procedure Description: ESPANA Graft Catheterization Procedure Description: Peripheral Cath Diagnostic Procedure Procedure Description: Abdominal aortic angiography Procedure Description: Iliac arterial aortic angiography Procedure Description: Lower extremities' angiography Procedure Description: Coronary Angiography Jorge GARCIA; Diagnostic Cath Status: Elective Diagnostic Findings * Coronary angiography shows right dominance. * Left main is a medium caliber vessel which was found to have around 20% ostial narrowing. * The left anterior descending artery is a medium caliber vessel which appears to taper off traverse the LV apex. The proximal LAD was found to have around 40 to 50% diffuse irregular narrowing. The first diagonal branch also was found to have some minimal intimal irregularities. No significant stenotic lesions were noted.. * The left circumflex artery is flush occluded at the ostium. * The right coronary artery appears to be totally occluded at the ostium. * The saphenous venous graft to the obtuse marginal artery was found to be widely patent. No significant stenotic lesions were noted. * Sequential venous graft to the PDA/PLV branch of the right coronary artery was found to be patent. The PDA was found to have moderate diffuse disease. * ESPANA to the LAD was found to be atretic and totally occluded at the distal anastomosis. Abdominal Diagnostic Findings An abdominal aortogram with runoff was performed by placing the pigtail catheter at the level of the renal artery. The abdominal aorta was found to have mild diffuse plaques. The stented segment of the proximal common leg artery was found to be widely patent. The internal iliac and the external leg artery on the right side were found to be patent with no significant stenotic lesions. The left common iliac, internal iliac and externaliliac arteries were found to have mild diffuse plaques with no significant stenotic lesions.. Lower Extremity Diagnostic Findings The left external iliac artery was selectively engaged using a RIM catheter. The common femoral and the superficial femoral arteries were found to have mild diffuse plaques and calcification. The popliteal artery was found to have no significant stenosis. The trifurcation vessels were identified and was found to have mild to moderate narrowing in the proximal segment. All the vessels were found to be running all the way to the ankle. No significant stenotic lesions were noted. The right iliac angiogram with runoff was performed by injecting into the femoral arterial sheath. 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 The superficial femoral and popliteal arteries were found to have mild to moderate diffuse plaques. The posterior tibial and the peroneal branch of the popliteal artery were found to be extending all the way up to the ankle. These vessels were found to have mild to moderate plaques in the proximal segment. The proximal segment of the artery tibial artery was visualized with no significant stenosis. The mid and distal segment of the angioplasty was not visualized.. Conclusions Patient has prior CABG. 76-year-old white male with history of atherosclerotic heart disease, four-vessel coronary bypass surgery, status post PCI, presented with atypical chest symptoms and shortness of breath. He had a myocardial perfusion imaging which revealed areas of fixed severe to the small areas of reversible defect. He also is known to have peripheral artery disease and was complaining of exertional claudication with moderate activities. He had a resting MONIQUE which revealed a noncompressible vessels bilaterally. Patient also is planning to have back surgery. In view of his ongoing symptoms, in order to further evaluate his coronary status as well as the peripheral arterial status, left catheterization with coronary angiogram and peripheral angiogram were performed. The results are as follows. Total occlusion of the circumflex and right coronary artery. Patent LAD and first diagonal branch with mild to moderate disease proximally. Patent venous graft to obtuse marginal artery and sequential venous graft to the PDA/PLV branch of the right coronary artery. ESPANA to LAD was found to be atretic and totally occluded at the distal anastomosis. A peripheral angiogram revealing a patent stent in the right common iliac artery. Mild to moderate diffuse plaques in the femoral, popliteal and infrapopliteal vessels bilaterally. Possible total occlusion of the mid anterior tibial artery on the right side. Diffuse calcification in the femoral arteries bilaterally. Moderate aortic valve stenosis with a mean gradient of 25 mmHg. Left ventricular diastolic dysfunction with an EDP of a 21 mmHg.. Recommendations Continue current medical management and risk factor modification. LV EDP: 21 mmHg Left Ventriculography Findings: * LV gram was not performed because of the concern about the dye overload. The LVEDP was 21 mmHg. The peak to peak gradient across the aortic valve was 10 with a mean gradient of 25 mmHg. Pressures Phase:Rest AO : 78 / 47 ( 61 ) @ 11:32:00 AM 84 / 50 ( 65 ) @ 11:33:00 AM 122 / 60 ( 84 ) @ 11:55:00 AM 125 / 62 ( 84 ) @ 11:55:00 AM LV : 130 / 5 / 21 @ 11:54:00 AM 133 / 6 / 21 @ 11:55:00 AM Valves Phase:DefaultPhase AV : 10.0 @ 1:39:57 PM AV Mean Gradient: 25.0 @ 1:39:57 PM Hemodynamic Data Phase:Rest AO : 78.0 / 47.0 ( 61.0 ) @ 11:32:00 AM 84.0 / 50.0 ( 65.0 ) @ 11:33:00 AM 122.0 / 60.0 ( 84.0 ) @ 11:55:00 AM 125.0 / 62.0 ( 84.0 ) @ 11:55:00 AM Clinical Evaluation EBL: 5mL-10mL Procedural Details Procedure Consent Obtained. Pre-Procedure Time Out. Identified patient by full name and date of as verbalized by the patient/guarantor. Does the consent match the physician's order: Yes. Accurate & Complete Informed Consent: Yes. Inpatient/Outpatient History & Physical on Chart: Yes. If H&P is completed, is and addenduem needed: No; If yes, is the addendum complete: N/A. Visualize and Verify Site with Patient/Guarantor: N/A. Relevant Radiology Images available: Yes. Pre-op teaching completed and patient verbalized understanding. The risks, benefits, and alternatives of sedation and/or procedure were discussed by physician. The patient agrees to continue. Procedure started. [facility] Clinical Fraility Score: 4: Vulnerable. Dye Can Operator Indications: Worsening Angina. Chest Pain Symptom Assessment: Atypical Angina. Correct patient, site and procedure confirmed by cath team. Current diagnosis: Stable angina. IV Site on Arrival: 20 gauge in the left anticubital. IV Fluids: 0.9% NaCl at KVO. 0 mL infused prior to tree tapping laborer. Pre Procedural Pulses: bilateral dorsalis pedis was Doppled. Pre Procedural Pulses: bilateral posterior tibial was Doppled. Pre Procedural Pulses: right radial was 3+. Oxygen started at 2liters/min via nasal canula. bilateral groins was prepped with chloroprep then draped in the usual sterile fashion. Physician notified. Baseline sample Acquired. HR: 58 BPM. Current Diagnosis : Chest Pain. Hemodynamic formulas in Rest were re-calculated based on hemoglobin value from 08/07/2021 12:00:00 AM. Physician arrived. Khadijah Quintana RN circulating. Physician scrubbed in. Immediate Pre-Procedure Time Out. Correct Patient: Yes; Correct Procedure: Yes; Correct Site: Yes; Correct Patient Position: Yes; Correct Supplies: Yes; Dried Flammable Prep: Yes; Blood Products Available: N/A;. Lidocaine 1% infiltrated to the right groin. Arterial access obtained with micropuncture set. A 5 taiwanese JL4 catheter in over wire. Multiple views taken of left coronary artery. Catheter removed over the exchange wire. A 5 taiwanese JR4 catheter in over wire. SVG's to OM visualized and patent. SVG's to RCA visualized and patent. Mari Johnson RT(R) was relieved by Adarsh Robles RN, HEATER ROOM HELPER as monitoring person. SVG's to PLV visualized and patent. sequential from RCA graft and occluded. Catheter removed over the exchange wire. A 5 taiwanese IM catheter in over exchange wire. ESPANA to LAD visualized. Catheter removed over the wire. A 5 taiwanese Angled Pig catheter in over wire. Patient's family updated. EDP Sample taken: LV 130/5,21; HR: 60 BPM; SpO2: 100%. Pullback taken: LV 133/6,21; AO 122/60(84); Mean: 25mmHg, Peak to Peak: 10mmHg, SEP: 16sec/min; HR: 58 BPM; SpO2: 100%. Catheter pulled back to the abdominal Aorta. Pigtail postioned above the bifurcation of the iliacs. Aortagram performed @ 10 mL/sec for a total of 30 mL. Pigtail postioned above the bifurcation of the iliacs. Aortagram performed @ 10 mL/sec for a total of 30 mL. Pigtail postioned above the bifurcation of the iliacs. Aortagram performed @ 10 mL/sec for a total of 30 mL. Catheter removed over the wire. A 5FrFr RIM catheter in over wire. RIM seated in the left common iliac. Left common iliac selected and arteriogram with runoff performed @ 10 mL/sec for a total of 30 mL. Left common iliac selected and arteriogram with runoff performed @ 10 mL/sec for a total of 30 mL. Catheter removed over the wire. Right common femoral selected and arteriogram with runoff performed @ 10 mL/sec for a total of 30 mL. Physician review of films. Physician scrubbed out. A Manual Compression was successful obtaining hemostatsis at the Right Femoral artery insertion site. Sheath(s) removed and manual pressure held until hemostasis was achieved. Sterile 4x4 and Op-site applied to the puncture site. No oozing or hematoma noted. Post sheath removal instructions were given and the patient verbalized understanding. Post Procedure: Pulses reassessed and unchanged. PERRLA. Strong, equal hand automobile assembler bilaterally. No VTE prophylaxis required. Medication's Wasted: Lidocaine 1% = 4 mL. Total IV fluids: 350 mL. Fluoro: 18:02. Contrast type used: Visipaque 320 mgI/mL, 500 mL bottle. [id number]. Post-op diagnosis: Subtotal occlusion of the ESPANA TO LAD, TOTAL OCCLUSION OF SEQUENTIAL GRAFT TO PDA, TOTAL OCCLUSION OF THE RCA AND CIRCUMFLEX. MODERATE PAD. Complications: NONE. Estimated blood loss: 5mL-10mL. Procedure completed. Patient transferred by bed to 1st floor. Access Site Site: Right Femoral artery Sheath Size: 5 Fr Hemostasis Method: Manual Compression Hemostasis Success: Successful Procedure Medications Start: 12:12 PM Stop: 12:12 PM Medication: Versed Amount: 1 mg Route: I.V. Start: 12:12 PM Stop: 12:12 PM Medication: Fentanyl Amount: 50 mcg Route: I.V. Start: 12:21 PM Stop: 12:21 PM Medication: Versed Amount: 1 mg Route: I.V. Start: 12:28 PM Stop: 12:28 PM Medication: Heparin Amount: 1500 units Route: I.V. Start: 12:29 PM Stop: 12:29 PM Medication: 0.9% Saline Amount: 250 ml Route: I.V. bolus Start: 1:06 PM Stop: 1:06 PM Medication: Fentanyl Amount: 50 mcg Route: I.V. I, the attending physician, have reviewed and verified all procedure medications. Yes, all medications given per verbal order History/Risk Factors Hypertension: Yes Dyslipidemia: Yes Peripheral Arterial Disease (PAD): Yes Myocardial Infarction (IL): No Obesity: No Renal Disease: No Prior Interventions PCI: No CABG: Yes Valve Surgery: No Report Signatures Finalized by Dr Frandy Patel MD FAC on 08/07/2021 05:35 PM
[2021-08-07 11:38] LABS: Basophils % 0.6 %; Eosinophils # 0.4 10^3/uL (0.0-0.8); Eosinophils % 6.2 %; Hematocrit 36.5 % (42.0-52.0); Hemoglobin 12.2 g/dL (11.7-16.6); Lymphocytes % 30.1 %; Mean Corpuscular HGB Conc 33.4 g/dL (30.0-36.0); Mean Corpuscular Hemoglobin 29.9 pg (28.0-34.0); Mean Corpuscular Volume 89.5 fl (80-94); Mean Platelet Volume 10.1 fL (7.4-10.4); Monocytes # 0.5 10^3/uL (0.2-0.9); Monocytes % 7.4 %; Neutrophils # 3.65 10^3/uL (1.8-7.7); Neutrophils % 55.1 %; Nucleated Red Blood Cells % 0 %; Platelet Count 146 10^3/cmm (130-400); Red Blood Count 4.08 10^6/uL (4.1-5.3); Red Cell Distribution Width 12.5 % (12.1-15.1); White Blood Count 6.6 10^3/uL (4.0-10.0)
[2021-08-07] MEDS: diphenhydrAMINE 50 mg Capsule PO (11:51)
--- NOTE | 2021-08-07 12:04 | W.PM.OPSUD ---
Surgery/Procedure H&P Update DATE OF PROCEDURE: August 07, 2021 DATE H&P PERFORMED: 07/29/21 H&P UPDATE INFORMATION: I have reviewed H&P completed within last 30 days, I have examined patient prior to procedure and No changes to prior documentation PREOP DIAGNOSIS: ASHD PRIMARY INDICATION FOR PROCEDURE: Chest pain/abnormal myocardial perfusion imaging/peripheral artery disease/leg pain/preop PLANNED PROCEDURE: Operation Date: 08/07/21 12:00 Proposed Procedures p Cardiac Catheterization(Left) - Frandy Patel MD PATIENT REASSESSED PRIOR TO SEDATION, WITH NO CHANGE NOTED: Yes PHYSICAL EXAM: alert, clear to auscultation bilaterally and regular rate & rhythm AIRWAY EVAL/ANESTHESIA PLAN: normal airway, see other exam findings, ASA III, Monitored Anesthesia, Local Anesthesia, Risks, benefits & alternatives of sedation and/or procedure discussed and Patient agrees to continue as planned
[2021-08-07] MEDS: sodium chloride 0.9% 1,000 ML 100 ML IV (13:00)
--- NOTE | 2021-08-07 13:00 | PC.NURSE ---
From grinding and polishing laborer Received pt awake, alert x4 in bed. Denies any pain or discomfort. Right groin dressing is intact. No hematoma, bleeding or swelling noted. Pt is a chronic afib. Instructed pt on activity restrictions on right leg. Pt and family verbalizes understanding. Neurovascular checks on pedal pulses are palpated +2. Call light provided to pt.
[2021-08-07] MEDS: methocarbamol 750 mg Tablet PO ×2 (15:08→20:53)
[2021-08-07 18:01] LABS: Glucose Point of Care 151 mg/dL (70-110)
--- NOTE | 2021-08-07 20:10 | PC.NURSE ---
Patient ambulated with nurse and daughter. VSS. Right groin site WNL before and after.
[2021-08-07] MEDS: aspirin 81 mg EC Tablet PO (20:53)
[2021-08-07] MEDS: metoprolol tartrate 50 mg Tablet PO (20:53)
[2021-08-07] MEDS: magnesium oxide 400 mg tablet PO (20:53)
[2021-08-07] MEDS: ferrous sulfate EC 325 mg Tablet PO (20:53)
[2021-08-07] MEDS: sodium chloride 0.9% 1,000 ML 75 ML IV (20:53)
[2021-08-07 21:04] LABS: Glucose Point of Care 167 mg/dL (70-110)
[2021-08-07] MEDS: insulin glargine 100 units/1 mL 25 UNIT SUBCUT (21:21)
--- NOTE | 2021-08-07 23:44 | PC.NURSE ---
Dr. Avila notified of blood sugar of 167 and 50 units of Lantus due. Ordered to give 25 units, instead of 50 for this dose.
[2021-08-08 00:31] VITALS: BP 110/52; PULSE 75; RESP 15
--- NOTE | 2021-08-08 02:42 | PC.NURSE ---
Addendum entered by Lashay Gomez RN 08/08/21 02:53: Order given for PO Benadryl x1. Original Note: Patient is asking for a Benadryl to help him sleep. Patient states that he does not want anything stronger than Benadryl. Dr. Avila notified.
--- NOTE | 2021-08-08 02:56 | PC.NURSE ---
Shift Note Frequent safety and comfort rounds continue. Orders and/or nursing care completed as indicated. Patient monitored for response to intervention and treatment(s). Education provided includes post-cath care and restrictions. Patient and/or internet sales representative verbalized understanding. Will continue to monitor.
[2021-08-08 02:58] VITALS: BP 118/62; PULSE 68; RESP 22; TEMP 37.1; O2SAT 95
[2021-08-08] MEDS: diphenhydrAMINE 50 mg Capsule PO (03:04)
[2021-08-08 03:54] VITALS: PULSE 78
[2021-08-08 06:36] LABS: Glucose Point of Care 155 mg/dL (70-110)
[2021-08-08 07:29] LABS: Anion Gap 14.1 (5-19); Blood Urea Nitrogen 10 mg/dL (8-23); Calcium 8.7 mg/dL (8.5-10.5); Carbon Dioxide 23 mmol/L (22-29); Chloride 101 mmol/L (98-107); Glucose 143 mg/dL (65-115); Osmolality Calculated 280 mOsm/kg (285-295); Potassium 4.1 mmol/L (3.5-5.1); Sodium 134 mmol/L (136-145)
[2021-08-08 07:49] VITALS: PULSE 74; RESP 18; O2SAT 96
[2021-08-08] MEDS: montelukast sodium 10 mg Tablet PO (09:04)
[2021-08-08] MEDS: magnesium oxide 400 mg tablet PO (09:04)
[2021-08-08] MEDS: lisinopril 20 mg Tablet PO (09:04)
[2021-08-08] MEDS: multivitamin therapeutic Tablet 1 TAB PO (09:05)
[2021-08-08] MEDS: FUROsemide 20 mg Tablet PO (09:05)
[2021-08-08] MEDS: pantoprazole DR 40 mg Tablet PO (09:05)
[2021-08-08] MEDS: metoprolol tartrate 50 mg Tablet PO (09:05)
[2021-08-08] MEDS: cetirizine 10 mg Tablet PO (09:05)
[2021-08-08 09:30] VITALS: BP 128/72; PULSE 89; RESP 23
--- NOTE | 2021-08-08 10:12 | P.DS_ITS ---
Discharge Providers Date of Admission: 08/07/21 13:54 Date of Discharge: August 08, 2021 Attending Provider at Admission: Frandy Patel MD Attending Provider at Discharge: Frandy Patel MD Primary Care Provider: Alesha Hylton MD Diagnoses at Discharge Discharge Diagnosis (1) CAD (coronary artery disease): Status: Acute (2) Hypertension: Status: Acute (3) Hyperlipidemia: Status: Acute Qualifiers: Hyperlipidemia type: mixed hyperlipidemia Qualified Code(s): E78.2 - Mixed hyperlipidemia (4) PVD (peripheral vascular disease): Status: Acute (5) Diabetes: Status: Acute (6) Pacemaker: Status: Acute Reason for Visit Reason for Visit: left heart cath Hospital Course Hospital Course 76-year-old man with past medical history of chronic episodic atrial fibrillation on Pradaxa, aortic valve stenosis, coronary artery disease s/p coronary bypass and PCI of bypass vessels, hypertension, hyperlipidemia, peripheral vascular disease, history of iliac artery aneurysm, diabetes mellitus and pacemaker. He has multiple other medical problems. Patient was having episodes of chest pain and tightness along with significant dyspnea on exertion. He also complained of intermittent claudication with exertion. He is also due to have lumbar surgery at [facility]. Patient has extensive cardiac history as well as last stress test in May 2021 showed myocardial scarring with small area of reversible defect in circumflex artery territory and fixed defect in inferior wall suggestive of myocardial scarring versus attenuation artifact. Given ongoing symptoms the decision was made to proceed with elective left heart catheterization and peripheral angiogram. Patient underwent procedure yesterday by Dr. Patel. Given high volume of contrast administration during the procedure yesterday patient was kept overnight for monitoring his BMP this morning. Patient denies any overnight complaints. He feels well and expresses his eagerness to go home. Physical Exam Narrative: EXAM NARRATIVE: GENERAL: Obese man lying in bed in no acute distress HEENT: Pupils equal round reactive to light. No pallor or icterus. NECK: No JVD No carotid bruit. CARDIOVASCULAR SYSTEM: S1-S2 irregular. Grade 3 on 6 ejection systolic murmur in aortic area RESPIRATORY SYSTEM: Chest clear to auscultation. No wheezes rhonchi or rubs heard. No use of accessory muscles. ABDOMEN: Soft, nontender and nondistended. Normal bowel sounds present. EXTREMITIES: No cyanosis or clubbing. Trace edema. No signs of chronic venous insufficiency. Right femoral access site with no significant bruising or hematoma. 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 No focal neurological deficits. Discharge Data Data Completed and Pending: Completed Studies During Hospitalization Category Date Time Status REO ASSET MANAGER request for service Routin e Exams 08/07/21 11:00 Completed Coronary angiogram /peripheral angiogram 07 August 2021 Diagnostic Cath Status: Elective Diagnostic Findings * Coronary angiography shows right dominance. * Left main is a medium caliber vessel which was found to have around 20% ostial narrowing. * The left anterior descending artery is a medium caliber vessel which appears to taper off traverse the LV apex. The proximal LAD was found to have around 40 to 50% diffuse irregular narrowing. The first diagonal branch also was found to have some minimal intimal irregularities. No significant stenotic lesions were noted.. * The left circumflex artery is flush occluded at the ostium. * The right coronary artery appears to be totally occluded at the ostium. * The saphenous venous graft to the obtuse marginal artery was found to be widely patent. No significant stenotic lesions were noted. * Sequential venous graft to the PDA/PLV branch of the right coronary artery was found to be patent. The PDA was found to have moderate diffuse disease. * ESPANA to the LAD was found to be atretic and totally occluded at the distal anastomosis. Abdominal Diagnostic Findings An abdominal aortogram with runoff was performed by placing the pigtail catheter at the level of the renal artery. The abdominal aorta was found to have mild diffuse plaques. The stented segment of the proximal common leg artery was found to be widely patent. The internal iliac and the external leg artery on the right side were found to be patent with no significant stenotic lesions. The left common iliac, internal iliac and externaliliac arteries were found to have mild diffuse plaques with no significant stenotic lesions.. Lower Extremity Diagnostic Findings The left external iliac artery was selectively engaged using a RIM catheter. The common femoral and the superficial femoral arteries were found to have mild diffuse plaques and calcification. The popliteal artery was found to have no significant stenosis. The trifurcation vessels were identified and was found to have mild to moderate narrowing in the proximal segment. All the vessels were found to be running all the way to the ankle. No significant stenotic lesions were noted. The right iliac angiogram with runoff was performed by injecting into the femoral arterial sheath. 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 The superficial femoral and popliteal arteries were found to have mild to moderate diffuse plaques. The posterior tibial and the peroneal branch of the popliteal artery were found to be extending all the way up to the ankle. These vessels were found to have mild to moderate plaques in the proximal segment. The proximal segment of the artery tibial artery was visualized with no significant stenosis. The mid and distal segment of the angioplasty was not visualized.. Conclusions Patient has prior CABG. 76-year-old white male with history of atherosclerotic heart disease, four-vessel coronary bypass surgery, status post PCI, presented with atypical chest symptoms and shortness of breath. He had a myocardial perfusion imaging which revealed areas of fixed severe to the small areas of reversible defect. He also is known to have peripheral artery disease and was complaining of exertional claudication with moderate activities. He had a resting MONIQUE which revealed a noncompressible vessels bilaterally. Patient also is planning to have back surgery. In view of his ongoing symptoms, in order to further evaluate his coronary status as well as the peripheral arterial status, left catheterization with coronary angiogram and peripheral angiogram were performed. The results are as follows. Total occlusion of the circumflex and right coronary artery. Patent LAD and first diagonal branch with mild to moderate disease proximally. Patent venous graft to obtuse marginal artery and sequential venous graft to the PDA/PLV branch of the right coronary artery. ESPANA to LAD was found to be atretic and totally occluded at the distal anastomosis. A peripheral angiogram revealing a patent stent in the right common iliac artery. Mild to moderate diffuse plaques in the femoral, popliteal and infrapopliteal vessels bilaterally. Possible total occlusion of the mid anterior tibial artery on the right side. Diffuse calcification in the femoral arteries bilaterally. Moderate aortic valve stenosis with a mean gradient of 25 mmHg. Left ventricular diastolic dysfunction with an EDP of a 21 mmHg.. Recommendations Continue current medical management and risk factor modification. Labs from last 24 hours 08/08/21 08/08/21 08/07/21 06:25 06:24 21:00 WBC RBC Hgb Hct MCV MCH MCHC RDW Plt Count MPV Neut % (Auto) Lymph % (Auto) [place] % (Auto) Eos % (Auto) Baso % (Auto) Neut # (Auto) Lymph # (Auto) [place] # (Auto) Eos # (Auto) Baso # (Auto) Nucleated RBC % (a uto) Nucleated RBCs # Sodium 134 L Potassium 4.1 Chloride 101 Carbon Dioxide 23 Anion Gap 14.1 BUN 10 Creatinine 0.8 GFR Calculation Not Reportable Glucose 143 H POC Glucose 155 H 167 H Calculated Osmolal ity 280 L Calcium 8.7 08/07/21 08/07/21 17:10 11:34 WBC 6.6 RBC 4.08 L Hgb 12.2 Hct 36.5 L MCV 89.5 MCH 29.9 MCHC 33.4 RDW 12.5 Plt Count 146 MPV 10.1 Neut % (Auto) 55.1 Lymph % (Auto) 30.1 [place] % (Auto) 7.4 Eos % (Auto) 6.2 Baso % (Auto) 0.6 Neut # (Auto) 3.65 Lymph # (Auto) 2.0 [place] # (Auto) 0.5 Eos # (Auto) 0.4 Baso # (Auto) 0.0 Nucleated RBC % (a uto) 0 Nucleated RBCs # 0.0 Sodium Potassium Chloride Carbon Dioxide Anion Gap BUN Creatinine GFR Calculation Glucose POC Glucose 151 H Calculated Osmolal ity Calcium Vitals: Last Vital Signs Temp 98.7 F 08/08/21 02:58 Pulse 89 08/08/21 09:30 Resp 23 H 08/08/21 09:30 BP 128/72 08/08/21 09:30 Pulse Ox 96 08/08/21 07:49 Discharge Plan Discharge Patient Disposition: Home Condition: Stable Prescriptions: Continued metoprolol tartrate 50 mg tablet 50 mg PO BID@ RF: 0 vitamin H78-dhvxc acid 500-400 mcg tablet 1 tab PO DAILY@ RF: 0 ferrous sulfate 325 mg (65 mg iron) tablet 325 mg PO DAILY@ RF: 0 furosemide 20 mg tablet 20 mg PO DAILY@ RF: 0 Lantus U-100 Insulin 100 unit/mL solution 50 unit SUBCUT DAILY@ RF: 0 magnesium 200 mg tablet 400 mg PO BID@ RF: 0 rosuvastatin 20 mg tablet 10 mg PO DAILY@ RF: 0 Pradaxa 150 mg capsule 150 mg PO BID@ RF: 0 pantoprazole 40 mg tablet,delayed release (DR/EC) 40 mg PO DAILY@ RF: 0 lisinopril 20 mg tablet 20 mg PO DAILY@09 RF: 0 aspirin [Adult Low Dose Aspirin] 81 mg tablet,delayed release (DR/EC) 81 mg PO DAILY@21 RF: 0 nitroglycerin [Nitrostat] 0.4 mg tablet, sublingual 0.4 mg SUBLINGUAL Q5M PRN (Reason: Chest Pain) RF: 0 budesonide-formoterol 160-4.5 mcg/actuation HFA aerosol inhaler 2 puff inhalation BID RF: 0 methocarbamol 750 mg tablet 750 mg PO TID RF: 0 hydrocortisone [Anusol-HC] 2.5 % cream with perineal applicator 1 applic TX Q6H Qty: 30 RF: 0 multivitamin Tablet 1 tab PO DAILY@0900 RF: 0 albuterol sulfate 2.5 mg /3 mL (0.083 %) Solution For Nebulization 2.5 mg inhalation PRN RF: 0 albuterol sulfate [ProAir HFA] 90 mcg/actuation Hfa Aerosol Inhaler 2 puff INHALATION Q4H PRN (Reason: Shortness Of Breath) RF: 0 Combivent Respimat 20-100 mcg/actuation mist 1 puff INHALATION QID PRN (Reason: Shortness Of Breath) RF: 0 Ozempic 0.25 mg or 0.5 mg(2 mg/1.5 mL) pen injector 1 mg SUBCUT Q7D RF: 0 diphenhydramine HCl [Benadryl] 25 mg Capsule 25 mg PO PRN RF: 0 metformin 750 mg Tablet Extended Release 24 Hr 750 mg PO BID@0900,2100 RF: 0 cetirizine 10 mg Tablet 10 mg PO DAILY@0900 RF: 0 montelukast 10 mg tablet 10 mg PO DAILY@0900 RF: 0 fluticasone furoate 27.5 mcg/actuation [place],Suspension 2 spray INTRANASAL DAILY RF: 0 Discharge Orders: Discharge Order (Routine); Ordered 08/08/21 Ordered By: Jessica Casiano Referrals: Frandy Patel MD [Physician] - 6 Weeks Jennifer Isaac FNP [Nurse Practitioner] - 4-7 days ([facility] will contact you to schedule an follow-up appointment with Jennifer Isaac. If you haven't heard from them by Tuesday. Please call ) Discharge Diet: Cardiac Discharge Activity: Limit activity as instructed Patient Instructions: Peripheral Vascular Angioplasty (DC), Left Heart Catheterization (DC), Opioid Safety, Post Angiogram Home Care Instructions Activity Restrictions/Additional Instructions: * Start Pradaxa on 08/09/21 * Start Metformin on 08/10/21 * Do not life anything more than 10 lb for 1 week * Follow up as scheduled Discharge Attestations Time Spent in Discharge Care*: less than 30 min Specific Discharge Activities: educating patient, documenting/other paperwork and evaluating patient/reviewing data Status at Discharge: Cognitive status at discharge: cognitively intact , Behavioral status at discharge: cooperative , Overall status at discharge: patient is back to baseline Quality Metrics Clinical Quality Measures During this hospital stay, did patient experience: None Coding Level of Care Code Acute Chg DC note Diagnoses CAD (coronary artery disease) I25.10 Hypertension I10 Hyperlipidemia E78.2 Hyperlipidemia type: mixed hyperlipidemia PVD (peripheral vascular disease) I73.9 Diabetes E11.9 Pacemaker Z95.0
[2021-08-08 11:21] VITALS: BP 132/84; PULSE 89; RESP 19; TEMP 36.6; O2SAT 93
--- NOTE | 2021-08-10 17:14 | PC.RESP ---
Pulmonary Rehab information sent to patient.
== END 2021-08-08 11:24 | disposition home or self-care (01) ==
LOC: CSU 13:54
PROVIDERS: Admitting Provider Internal Medicine Cardiovascular Disease; PCP Family Medicine; Visit Provider Internal Medicine Cardiovascular Disease
DX: I25.10 Atherosclerotic heart disease of native coronary artery without angina pectoris (principal); I10 Essential (primary) hypertension; E78.2 Mixed hyperlipidemia; I73.9 Peripheral vascular disease, unspecified; E11.9 Type 2 diabetes mellitus without complications; Z95.0 Presence of cardiac pacemaker; I48.91 Unspecified atrial fibrillation; Z95.5 Presence of coronary angioplasty implant and graft
CPT/HCPCS: 36415; 36416; 75625; 75716; 80048; 82962; 85025; 93459; 94640; 96372; C1769; C1887; C1894; G0378; J1644; J1815; J2250; J3010; J3490; J7030; Q0163; Q9967

== ENCOUNTER → 2021-08-17 09:37 | Outpatient (BNVA) | payer OTHER, SELFPAY | PROVIDERS: PCP Family Medicine; Visit Provider Nurse Practitioner Family | DX: I25.119 Atherosclerotic heart disease of native coronary artery with unspecified angina pectoris; I73.9 Peripheral vascular disease, unspecified | CPT/HCPCS: 80048 ==

== ENCOUNTER → 2021-09-25 10:07 | Outpatient (BNVA) | payer OTHER, SELFPAY | PROVIDERS: PCP Family Medicine; Referring Provider Internal Medicine Cardiovascular Disease; Visit Provider Internal Medicine Cardiovascular Disease | DX: Z01.818 Encounter for other preprocedural examination (principal); Z20.822 Contact with and (suspected) exposure to COVID-19; K55.1 Chronic vascular disorders of intestine; I73.9 Peripheral vascular disease, unspecified | CPT/HCPCS: 80048; 85025; 85610; 87635 ==

== ENCOUNTER 2021-10-09 05:50 | Outpatient (CLI) | payer OTHER, SELFPAY ==
[2021-10-09] VITALS (24 sets, daily range): BP systolic 97–138; BP diastolic 48–93; PULSE 88–101; RESP 13–24; TEMP 36.9; O2SAT 90–97; BMI 28.3
[2021-10-09] MEDS: diphenhydrAMINE 50 mg Capsule PO (06:43)
--- NOTE | 2021-10-09 07:00 | XACV_ITS ---
Wt: 75 kg BSA: 1.86 m2 Any Known Allergies: Other Gender: Male : 1945 Exam Type: Invasive Peripheral Vascular Procedure(s): Procedure Description: Peripheral Cath Diagnostic Procedure Procedure Description: Abdominal aortic angiography Exam Priority: Routine RADHA, Jorge; Gloria Patient has been referred to us for peripheral angiogram and possible intervention for mesenteric artery occlusion on the basis of CTA with runoff. Patient is losing weight. He denies any abdominal pain cramps or bleeding per rectum. He denies any ischemic gut symptoms though.Through right groin approach and right common femoral artery peripheral angiogram/abdominal aortogram was performed. It showed no significant aneurysm abdominal aorta. Renal arteries bilaterally did not show any significant stenosis.Celiac trunk: No significant disease noted Superior mesenteric artery: C annulization of superior mesenteric artery was performed. It appeared to me there is a highly calcified ostial 60 to 70 % stenosis. Rest of vessel did not show any significant stenosis.. Recommendations Since patient is asymptomatic and there is good flow in the mesenteric vessel advise medical management. Hemodynamic Data Phase:Rest AO : 116.0 / 53.0 ( 77.0 ) @ 7:29:00 AM 138.0 / 58.0 ( 89.0 ) @ 7:54:00 AM Access Site Site: Right Femoral artery Sheath Size: 6 Fr Hemost... Method: Manual Compression Hemost... Success: Successful Procedure Details Findings Procedure Consent Obtained. Pre-Procedure Time Out. Identified patient by full name and date of as verbalized by the patient/guarantor. Does the consent match the physician's order: Yes. Accurate & Complete Informed Consent: Yes. Inpatient/Outpatient History & Physical on Chart: Yes. If H&P is completed, is and addenduem needed: No; If yes, is the addendum complete: N/A. Visualize and Verify Site with Patient/Guarantor: N/A. Relevant Radiology Images available: N/A. Pre-op teaching completed and patient verbalized understanding. The risks, benefits, and alternatives of sedation and/or procedure were discussed by physician. The patient agrees to continue. Procedure started. Correct patient, site and procedure confirmed by cath team. PERRLA. 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 Lungs clear x 5 lobes. IV Site on Arrival: 20 gauge in the left anticubital. IV Fluids: 0.9% NaCl at KVO. 0 mL infused prior to cardiac cath lab technologist. Pre Procedural Pulses: bilateral dorsalis pedis was Doppled. Pre Procedural Pulses: bilateral posterior tibial was Doppled. Pre Procedural Pulses: bilateral radial was 1+. Oxygen started at 2liters/min via nasal canula. right groin was prepped with chloroprep then draped in the usual sterile fashion. right radial was prepped with chloroprep then draped in the usual sterile fashion. Physician arrived. Khadijah Robertson RN will be circulating nurse for procedure. Baseline sample Acquired. HR: 92 BPM. Equipment: Peripheral. Cardiac Cath Pack. ACIST Manifold Kit Model BT 2000. Heparinized Saline (2 units/mL), 1000 mL bag. Physician scrubbed in. Immediate Pre-Procedure Time Out. Correct Patient: Yes; Correct Procedure: Yes; Correct Site: Yes; Correct Patient Position: Yes; Correct Supplies: Yes; Dried Flammable Prep: Yes; Blood Products Available: N/A;. Lidocaine 1% infiltrated to the right groin. Arterial access obtained with micropuncture set. A Right femoral angiogram was performed. A 5 tristanian JR4 catheter in over wire. Catheter removed over the exchange wire. A 5 tristanian Angled Pig catheter in over wire. Abdominal aortogram performed in AP @ 10 mL/sec for a total of 20 mL. Abdominal aortogram performed in AP @ 10 mL/sec for a total of 20 mL. Abdominal aortogram performed in AP @ 10 mL/sec for a total of 30 mL. Abdominal aortogram performed in AP @ 10 mL/sec for a total of 30 mL. Catheter out. A 5 tristanian JR4 catheter in over wire. Catheter out. A 5 tristanian AL1 catheter in over wire. Abdominal aortogram performed @ 10 mL/sec for a total of 30 mL. Abdominal aortogram performed @ 10 mL/sec for a total of 30 mL. Abdominal aortogram performed @ 10 mL/sec for a total of 30 mL. Abdominal aortogram performed @ 10 mL/sec for a total of 30 mL. Abdominal aortogram performed@ 10 mL/sec for a total of 30 mL. mesenteric selected and arteriogram performed. Abdominal aortogram performed @ 10 mL/sec for a total of 30 mL. Abdominal aortogram performed @ 10 mL/sec for a total of 30 mL. Catheter out. Physician scrubbed out. A Manual Compression was successful obtaining hemostatsis at the Right Femoral artery insertion site. Sheath(s) removed and manual pressure held until hemostasis was achieved. Sterile 4x4 and Op-site applied to the puncture site. No oozing or hematoma noted. Post sheath removal instructions were given and the patient verbalized understanding. Post Procedure: Pulses reassessed and unchanged. PERRLA. 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 No VTE prophylaxis required. Medication's Wasted: Nitro = 50 mg. Medication's Wasted: Heparin = 1000 units. Total IV fluids: 55 mL. Contrast type used: Visipaque 320 mgI/mL, 500 mL bottle. Post-op diagnosis: moderate ostial mesenteric with calcification. Complications: none. Estimated blood loss: 5mL-10mL. Responsiveness - Normal response to verbal stimuli; alert and oriented, PERRLA. Airway - Unaffected, no intervention required; spontaneous ventilation. Circulation: W/N/L, pulses unchanged. Nausea/Vomiting: No. Procedure completed. Patient transferred by stretcher to CPRU. Vital chart was stopped. Procedure Medications Start: 9:11 AM Stop: 9:11 AM Medication: Versed Amount: 1 mg Route: I.V. Start: 9:11 AM Stop: 9:11 AM Medication: Fentanyl Amount: 25 mcg Route: I.V. Start: 9:52 AM Stop: 9:52 AM Medication: Versed Amount: 1 mg Route: I.V. Start: 9:57 AM Stop: 9:57 AM Medication: Fentanyl Amount: 50 mcg Route: I.V. I, the attending physician, have reviewed and verified all procedure medications. Yes, all medications given per verbal order History/Risk Factors Hypertension: Yes Dyslipidemia: Yes Peripheral Arterial Disease (PAD): Yes Obesity: No Renal Disease: No Prior Interventions PCI: No CABG: Yes Valve Surgery: No Report Signatures Finalized by Kamari Cheng MD on 10/13/2021 08:18 PM
--- NOTE | 2021-10-09 10:24 | W.PM.OPSUD ---
Surgery/Procedure H&P Update DATE OF PROCEDURE: October 09, 2021 DATE H&P PERFORMED: 09/23/21 H&P UPDATE INFORMATION: I have reviewed H&P completed within last 30 days, I have examined patient prior to procedure and No changes to prior documentation PREOP DIAGNOSIS: Mesenteric angiogram for possible mesenteric ischemia, abnormal CTA PLANNED PROCEDURE: Operation Date: 10/09/21 07:00 Proposed Procedures p Peripheral Diagnostic(Not Applicable) - Kamari Cheng MD PATIENT REASSESSED PRIOR TO SEDATION, WITH NO CHANGE NOTED: Yes PHYSICAL EXAM: alert and oriented x 3 AIRWAY EVAL/ANESTHESIA PLAN: ASA II and Risks, benefits & alternatives of sedation and/or procedure discussed ADDITIONAL INFORMATION: All risk benefit and alternative for the procedure including vascular injury mesenteric ischemia worsening acute mesenteric ischemia with embolic phenomena dissection of the vasculature including aorta and its branches contrast-induced nephropathy urgent emergent vascular surgery requirement transfusion hematoma infection pseudoaneurysm stroke other embolic phenomena were described to the patient he would like to proceed with it.
--- NOTE | 2021-10-09 10:42 | PC.NURSE ---
recovery received pt from airport maintenance laborer post diagnostic procedure. pt has right groin pressure held access point with a dry and intact dressing. pt complains of no pain and is alert and oriented x3. pt educated on restrictions and stated understanding of recovery. per verbal orders plan is to lay flat for 6 hrs. up to walk and if all is good dc after another hour. pt stated he understood the instructions.
--- NOTE | 2021-10-09 12:06 | PC.NURSE ---
verbal order for 100mls hr for 6 hrs- started at 1030
--- NOTE | 2021-10-09 14:00 | PC.NURSE ---
Received pt from dairy and food laboratory assistant Pt is alert, orientedx4. Denies any pain. right groin area dressing is dry and intact. no hematoma, swelling or bleeding. pt is instructed for bedrest for 6 hrs. call light provided to pt.
--- NOTE | 2021-10-09 17:30 | PC.NURSE ---
Ambulation Pt is up and walking in room. no hematoma, swelling or bleeding noted on right groin.
== END 2021-10-09 18:15 | disposition home or self-care (01) ==
LOC: CCL 05:52 → CSU 14:46
PROVIDERS: PCP Family Medicine; Visit Provider Internal Medicine Cardiovascular Disease
DX: R93.1 Abnormal findings on diagnostic imaging of heart and coronary circulation (principal); I48.20 Chronic atrial fibrillation, unspecified; J44.9 Chronic obstructive pulmonary disease, unspecified; E11.9 Type 2 diabetes mellitus without complications; E78.5 Hyperlipidemia, unspecified; I10 Essential (primary) hypertension; Z95.0 Presence of cardiac pacemaker; Z87.11 Personal history of peptic ulcer disease
CPT/HCPCS: 36415; 75625; C1769; C1887; C1894; J1644; J2250; J3010; J3490; J7030; Q0163; Q9967

== ENCOUNTER → 2021-10-21 11:47 | Outpatient (BNVA) | payer OTHER, SELFPAY | PROVIDERS: PCP Family Medicine; Visit Provider Internal Medicine Cardiovascular Disease | DX: Z79.01 Long term (current) use of anticoagulants (principal); K55.069 Acute infarction of intestine, part and extent unspecified; R06.02 Shortness of breath | CPT/HCPCS: 80048; 85025 ==

== ENCOUNTER 2021-10-28 08:28 | Emergency (ER) | payer OTHER, SELFPAY ==
--- NOTE | 2021-10-28 08:31 | XRR_ITS ---
PROCEDURE INFORMATION: Exam: XR Left Hand Exam date and time: 10/28/2021 8:31 AM Age: 76 years old Clinical indication: Injury or trauma; Fall; Blunt trauma (contusions or hematomas); Hand; Left; Additional info: Trauma/injury TECHNIQUE: Imaging protocol: XR Left hand. Views: 3 or more views. Total images: 3 COMPARISON: CR Wrist 3 views, LEFT* [id number] 07/14/2019 10:00 AM FINDINGS: Bones/joints: TFCC chondrocalcinosis, suggestive of calcium pyrophosphate deposition arthropathy. 3rd through 5th distal interphalangeal joint degenerative changes. Soft tissues: Normal. Vasculature: Atherosclerosis is evident. XR/XR hand LT min 3V* [id number] IMPRESSION: Degenerative changes as described above but no acute pathology detected.
[2021-10-28 08:38] VITALS: BP 129/67; PULSE 76; RESP 19; TEMP 36.6; O2SAT 97; BMI 29.3
--- NOTE | 2021-10-28 08:48 | W.ED.EXTPRO ---
HPI - Extremity Problem General: Chief complaint: Extremity Injury, Upper Stated complaint: fall left hand injury Time Seen by Provider: 10/28/21 08:31 Source: patient Mode of arrival: ambulatory Limitations: no limitations History of Present Illness: HPI Narrative: Patient is a nice 76 yo male here for evaluation following the fall. He states he was walking in the middle the night and tripped over a stool and fell onto his face and injured his left hand/fingers. Patient states he broke a tooth and another one is loose. He is a patient at [facility] and plans on following up with them. States he injured his left 2-3 fingers and states they are mildly swollen and bruised. Denies MCCARTNEY, neck pain, or back pain. MD Complaint: extremity pain Location: left and upper extremity Radiation: none Relieving factors: immobilization Exacerbating factors: range of motion Associated symptoms: Reports no associated symptoms; Deny chest pain, fever(s) or rash Context: other (fall) Review of Systems Const: Denies: fever(s), chills, body aches, fatigue or malaise Eyes: Denies: change in vision, blurry vision or photophobia ENMT: Reports: dental pain; Denies: throat pain, odynophagia, ear discharge, nasal discharge or epistaxis Card: Denies: chest pain, palpitations, irregular heart rhythm, lightheadedness, syncope or dyspnea on exertion Resp: Denies: dyspnea, productive cough or pain on inspiration GI: Denies: abdominal pain, nausea, vomiting, heartburn or diarrhea : Denies: difficulty urinating or dysuria Musc: Reports: extremity pain (L hand/fingers) and extremity swelling (L finger swelling); Denies: neck pain, back pain, joint pain or limited range of motion Skin/Breast: Denies: rash Neuro: Denies: headache(s), numbness in extremities, weakness in extremities, sensory changes or dizziness PFSH ED PFSH: Medical History Atherosclerotic heart disease [place] coronary artery w/angina pectoris CAD (coronary artery disease) Chronic episodic atrial fibrillation COPD (chronic obstructive pulmonary disease) Diabetes Hyperlipidemia Hypertension Intestinal angina Pacemaker PUD (peptic ulcer disease) PVD (peripheral vascular disease) Surgical History H/O mastectomy History of prostatectomy Hx of CABG Family History Other Adopted Social History Alcohol intake: current Alcohol intake frequency: holidays/special occasions only Physical Exam Const: COMMON NORMALS: no acute distress, average body habitus, patient oriented x3, no limitations, healthy appearing, alert and well nourished GENERAL APPEARANCE: cooperative ORIENTATION/CONSCIOUSNESS: Yes awake, Yes oriented to person, Yes oriented to place and Yes oriented to time HENMT: COMMON NORMALS: normocephalic, atraumatic and Normal external nose present HEAD & SCALP: normal to inspection, normocephalic and atraumatic NOSE: Normal external nose present MOUTH IMAGES: 1. small non-gapping laceration TEETH & GINGIVA IMAGES: 1. intrusive luxation 2. mild dental fracture Eye: COMMON NORMALS: Equal, round and reactive pupils present and EOMs intact bilaterally GENERAL EYE: appearance normal, both eyes and all related structures PUPIL: Yes Equal, round and reactive pupils present Neck/C-Spine: COMMON NORMALS: full ROM CERVICAL SPINE: Yes cervical ROM normal, No pain with cervical ROM, No Cervical spine tenderness and No Paracervical muscle tenderness Resp: COMMON NORMALS: normal respiratory effort and clear to auscultation bilaterally AUSCULTATION: clear to auscultation bilaterally Cardio: COMMON NORMALS: regular rate and regular rhythm RATE: regular rate RHYTHM: regular rhythm Back/Pelvis: COMMON NORMALS: thoracic and lumbar spine normal to inspection, no thoracic nor lumbar tenderness and thoraco-lumbar ROM normal Extremity: GENERAL: Yes normal exam except as noted LEFT UPPER EXTREMITY: Yes hand & digits (TTP/swelling to L 2-3 digits; no obvious bony deformity) Left hand and digits: Yes neurovascular exam (normal) Neuro: TAMELA COMA SCALE: document GCS findings [place] coma scale eye opening: Spontaneous Tamela coma scale verbal response: Orientated Tamela coma scale motor response: Obey commands [place] coma scale total score: 15 COMMON NORMALS: patient oriented x3, CN's II-XII intact bilaterally, moves all extremities, no focal motor deficits, no sensory deficits noted and gait normal SENSORIUM/ORIENTATION: Yes alert, Yes oriented to person, Yes oriented to place and Yes oriented to time Skin: NARRATIVE SKIN EXAM: normal skin exam unless otherwise documented Course Vital Signs: Vital signs: Vital Signs Temperature 97.9 F 10/28/21 08:38 Pulse Rate 76 10/28/21 08:38 Respiratory Rate 19 H 10/28/21 08:38 Blood Pressure 129/67 10/28/21 08:38 Pulse Oximetry 97 10/28/21 08:38 MDM - Extremity (Nontraumatic) MDM Narrative: Medical decision making narrative: Pts hand XR is negative. He has an established dentist that he was recommended prompt follow up in regards to his dental trauma. Return to ED precautions verbally discussed with patient. Imaging Data^: XR L hand: Radiologist's impression: Juan [address] [place], [place] [address]FYkz ReportSigned Patient: Yvon Trujillo #: [id number]: 5Acct#:[id number]/Sex: 76 / MADM Date: 10/28/21Loc: ERRoom/Bed:Attending Dr: Ordering Provider/Ordering MD: Trice Fink Date of Service: 10/28/21 Procedure(s): XR hand LT min 3V* [id number] Accession Number(s): [id number] Report Number: [id number] PROCEDURE INFORMATION: Exam: XR Left Hand Exam date and time: 10/28/2021 8:31 AM Age: 76 years old Clinical indication: Injury or trauma; Fall; Blunt trauma (contusions or hematomas); Hand; Left; Additional info: Trauma/injury TECHNIQUE: Imaging protocol: XR Left hand. Views: 3 or more views. Total images: 3 COMPARISON: CR Wrist 3 views, LEFT* [id number] 07/14/2019 10:00 AM FINDINGS: Bones/joints: TFCC chondrocalcinosis, suggestive of calcium pyrophosphate deposition arthropathy. 3rd through 5th distal interphalangeal joint degenerative changes. Soft tissues: Normal. Vasculature: Atherosclerosis is evident. XR/XR hand LT min 3V* [id number] IMPRESSION: Degenerative changes as described above but no acute pathology detected. Dictated By:New Angel MDSigned By:New Angel MDSigned Date/Time:10/28/2101DD/ 0831 Discharge Plan Discharge Patient Disposition: Home Clinical Impression: Contusion of left index finger Qualifiers: Encounter type: initial encounter Damage to nail status: without damage Qualified Code(s): S60.022A - Contusion of left index finger without damage to nail, initial encounter Contusion of left middle finger Qualifiers: Encounter type: initial encounter Damage to nail status: without damage Qualified Code(s): S60.032A - Contusion of left middle finger without damage to nail, initial encounter Luxation of tooth Qualifiers: Encounter type: initial encounter Qualified Code(s): S03.2XXA - Dislocation of tooth, initial encounter Fracture of tooth Qualifiers: Encounter type: initial encounter Fracture type: closed Qualified Code(s): S02.5XXA - Fracture of tooth (traumatic), initial encounter for closed fracture Fall from slip, trip, or stumble Qualifiers: Encounter type: initial encounter Qualified Code(s): W01.0XXA - Fall on same level from slipping, tripping and stumbling without subsequent striking against object, initial encounter Condition: Stable Prescriptions: No Action hydrocodone-acetaminophen 5-325 mg tablet 1 tab PO TID PRN (Reason: pain) RF: 0 metoprolol tartrate 50 mg tablet 50 mg PO BID@ RF: 0 vitamin M11-icutg acid 500-400 mcg tablet 1 tab PO DAILY@ RF: 0 ferrous sulfate 325 mg (65 mg iron) tablet 325 mg PO DAILY@ RF: 0 furosemide 20 mg tablet 20 mg PO DAILY@ RF: 0 Lantus U-100 Insulin 100 unit/mL solution 50 unit SUBCUT DAILY@ RF: 0 magnesium 200 mg tablet 400 mg PO BID@ RF: 0 rosuvastatin 20 mg tablet 10 mg PO DAILY@ RF: 0 Pradaxa 150 mg capsule 150 mg PO BID@ RF: 0 pantoprazole 40 mg tablet,delayed release (DR/EC) 40 mg PO DAILY@ RF: 0 lisinopril 20 mg tablet 20 mg PO DAILY@ RF: 0 aspirin [Adult Low Dose Aspirin] 81 mg tablet,delayed release (DR/EC) 81 mg PO DAILY@ RF: 0 nitroglycerin [Nitrostat] 0.4 mg tablet, sublingual 0.4 mg SUBLINGUAL Q5M PRN (Reason: Chest Pain) RF: 0 budesonide-formoterol 160-4.5 mcg/actuation HFA aerosol inhaler 2 puff inhalation BID RF: 0 methocarbamol 750 mg tablet 750 mg PO TID RF: 0 hydrocortisone [Anusol-HC] 2.5 % cream with perineal applicator 1 applic [place] Q6H Qty: 30 RF: 0 multivitamin Tablet 1 tab PO DAILY@0900 RF: 0 albuterol sulfate 2.5 mg /3 mL (0.083 %) Solution For Nebulization 2.5 mg inhalation PRN RF: 0 albuterol sulfate [ProAir HFA] 90 mcg/actuation Hfa Aerosol Inhaler 2 puff INHALATION Q4H PRN (Reason: Shortness Of Breath) RF: 0 Combivent Respimat 20-100 mcg/actuation mist 1 puff INHALATION QID PRN (Reason: Shortness Of Breath) RF: 0 Ozempic 0.25 mg or 0.5 mg(2 mg/1.5 mL) pen injector 1 mg SUBCUT Q7D RF: 0 diphenhydramine HCl [Benadryl] 25 mg Capsule 25 mg PO PRN RF: 0 metformin 750 mg Tablet Extended Release 24 Hr 750 mg PO BID@0900,2100 RF: 0 cetirizine 10 mg Tablet 10 mg PO DAILY@0900 RF: 0 montelukast 10 mg tablet 10 mg PO DAILY@0900 RF: 0 fluticasone furoate 27.5 mcg/actuation [place],Suspension 2 spray INTRANASAL DAILY RF: 0 Discharge Orders: Discharge ED (Routine); Ordered 10/28/21 Ordered By: Trice Fink Referrals: Alesha Hylton MD [Primary Care Provider] - Activity Restrictions/Additional Instructions: As we discussed please contact your dentist today to schedule an emergent/dental trauma follow-up appointment for further evaluation and treatment of your tooth injuries. Coding Level of Care Code ED Linoleum Mechanic for Jenna Fwd Exam Comprehensive
== END 2021-10-28 09:23 | disposition home or self-care (01) ==
PROVIDERS: Emergency Provider Physician Assistant; PCP Family Medicine
DX: S60.022A Contusion of left index finger without damage to nail, initial encounter (principal); S60.032A Contusion of left middle finger without damage to nail, initial encounter; S03.2XXA Dislocation of tooth, initial encounter; S02.5XXA Fracture of tooth (traumatic), initial encounter for closed fracture; W01.0XXA Fall on same level from slipping, tripping and stumbling without subsequent striking against object, initial encounter
CPT/HCPCS: 73130; 99282

== ENCOUNTER → 2022-03-17 13:24 | Outpatient (BNVA) | payer OTHER, SELFPAY | PROVIDERS: PCP Family Medicine; Visit Provider Internal Medicine Cardiovascular Disease | DX: I25.10 Atherosclerotic heart disease of native coronary artery without angina pectoris (principal); I73.9 Peripheral vascular disease, unspecified; I35.0 Nonrheumatic aortic (valve) stenosis; I48.20 Chronic atrial fibrillation, unspecified; I10 Essential (primary) hypertension; E78.2 Mixed hyperlipidemia; Z95.0 Presence of cardiac pacemaker; Z87.891 Personal history of nicotine dependence | CPT/HCPCS: 99214 ==

== ENCOUNTER → 2022-03-26 08:03 | Outpatient (BNVA) | payer OTHER, SELFPAY | PROVIDERS: PCP Family Medicine; Visit Provider Internal Medicine Cardiovascular Disease | DX: Z45.010 Encounter for checking and testing of cardiac pacemaker pulse generator [battery] (principal) | CPT/HCPCS: 93280 ==

== ENCOUNTER 2022-07-16 18:11 | Emergency (ER) | payer OTHER, SELFPAY ==
[2022-07-16] VITALS (9 sets, daily range): BP systolic 102–131; BP diastolic 56–78; PULSE 68–91; RESP 17–24; TEMP 36.7; O2SAT 95–97; BMI 30.5
--- NOTE | 2022-07-16 18:13 | XRR_ITS ---
PROCEDURE INFORMATION: Exam: XR Chest Exam date and time: 07/16/2022 6:32 PM Age: 77 years old Clinical indication: Chest wall pain; Additional info: Cp TECHNIQUE: Imaging protocol: Radiologic exam of the chest. Views: 1 view. COMPARISON: CR XR chest 1V portable [id number] 03/27/2021 8:51 PM FINDINGS: Tubes, catheters and devices: Stable left pacemaker. Lungs: Unremarkable. No consolidation. Pleural spaces: Unremarkable. No pleural effusion. No pneumothorax. Heart/Mediastinum: Unremarkable. No cardiomegaly. Bones/joints: Stable sternotomy. XR/XR chest 1V portable [id number] IMPRESSION: No acute findings.
--- NOTE | 2022-07-16 18:23 | ECG_ITS ---
[facility] Test Date: 2022-07-16 Pat Name: Yvon Trujillo Department: Room: Gender: Male Author: : 1945 Requested By: Yahaira Gary Order Number: [id number] Shalini MD: Jessica Casiano M.D. Measurements Intervals [place] Rate: 90 P: [place]: QRS: -11 QRSD: 92 T: -7 QT: 355 QTc: 436 Interpretive Statements ATRIAL FIBRILLATION MINIMAL ST DEPRESSION [0.025+ mV ST DEPRESSION] ABNORMAL RHYTHM ECG Compared to ECG 03/27/2021 22:45:44 ST (T wave) deviation now present T-wave abnormality no longer present Electronically Signed On 07-17-2022 11:08:59 CDT by Jessica Casiano M.D. [id number]
--- NOTE | 2022-07-16 18:35 | W.ED.CHESTPA ---
HPI - Chest Pain General: Chief Complaint: Chest Pain Stated Complaint: cp Time Seen by Provider: 07/16/22 18:19 Source: patient Mode of arrival: ambulatory Limitations: no limitations History of Present Illness: 77-year-old male with extensive heart history including CABG. States today has been having some burning sensation in his abdomen that went to his chest. He states he does get reflux that felt similar to that states he is concerned as it lasted throughout the day states he is actually completely pain-free currently states nearly did radiate to his back denies any radiation currently. He denies any fever has had some nausea denies any vomiting Associated symptoms: Reports abdominal pain and nausea; Deny dyspnea or fever(s) Review of Systems Const: Denies: fever(s), chills, body aches or change in appetite Eyes: Denies: blurry vision or eye discomfort ENMT: Denies: throat pain or dental pain Card: Reports: chest pain Resp: Denies: dyspnea GI: Reports: abdominal pain and nausea : Denies: dysuria Musc: Denies: neck pain or back pain Skin/Breast: Denies: rash Neuro: Denies: headache(s) Psych: Denies: depression Ry/Lymph: Denies: easy bruising All/Imm: Denies: urticaria PFSH ED PFSH: Medical History Atherosclerotic heart disease [place] coronary artery w/angina pectoris CAD (coronary artery disease) Chronic episodic atrial fibrillation COPD (chronic obstructive pulmonary disease) Diabetes Hyperlipidemia Hypertension Intestinal angina Pacemaker PUD (peptic ulcer disease) PVD (peripheral vascular disease) Surgical History H/O mastectomy History of prostatectomy Hx of CABG Hx of spinal surgery Family History Other Adopted Social History Smoking and tobacco status: former smoker Alcohol intake: current Alcohol intake frequency: holidays/special occasions only Physical Exam Const: COMMON NORMALS: no acute distress, patient oriented x3 and healthy appearing HENMT: COMMON NORMALS: normocephalic and atraumatic HEAD & SCALP: normocephalic and atraumatic Eye: COMMON NORMALS: Equal, round and reactive pupils present and EOMs intact bilaterally PUPIL: Yes Equal, round and reactive pupils present Neck/C-Spine: COMMON NORMALS: full ROM and supple Chest: COMMONS NORMALS: normal inspection of the chest and normal palpation of entire chest wall Resp: COMMON NORMALS: normal respiratory effort, No retractions, No use of accessory muscles and clear to auscultation bilaterally AUSCULTATION: clear to auscultation bilaterally Cardio: COMMON NORMALS: regular rate, regular rhythm and No murmurs present (Cardio) RATE: regular rate RHYTHM: regular rhythm GI: COMMON NORMALS: Normal to inspection, nondistended, normoactive bowel sounds present, Soft to palpation, non-tender and no masses PALPATION: Yes Soft to palpation Extremity: COMMON NORMALS: normal to inspection and full ROM Neuro: COMMON NORMALS: patient oriented x3, moves all extremities and no focal motor deficits Psych: COMMON NORMALS: mental status grossly normal, Normal thought process present and cooperative THOUGHT PROCESS: Normal thought process present Skin: COMMON NORMALS: no rashes or lesions noted and no wounds GENERAL SKIN EXAM: no rashes or lesions noted Course Vital Signs: Vital signs: Vital Signs Temperature 98.0 F 07/16/22 18:16 Pulse Rate 68 07/16/22 21:26 Respiratory Rate 20 H 07/16/22 21:26 Blood Pressure 112/56 07/16/22 21:26 Pulse Oximetry 95 07/16/22 21:26 Oxygen Delivery Me thod 07/16/22 18:16 MDM - Chest Pain Medical Decision Making Patient presents for chest pains atypical in nature likely gastritis patient's blood work here is normal initial repeat troponin are normal as well no signs of acute coronary syndrome his abdominal exam is benign he is to follow-up his PCP and return if worsening he understands agrees to plan. Lab Data : 07/16/22 19:19 07/16/22 19:19 Radiology Impressions Chest X-Ray 07/16/22 18:13 IMPRESSION: No acute findings. Laboratory Results WBC 8.7 10^3/uL (4.0-10.0) 07/16/22 19:19 RBC 4.32 10^6/uL (4.1-5.3) 07/16/22 19:19 Hgb 13.4 g/dL (11.7-16.6) 07/16/22 19:19 Hct 39.3 % (42.0-52.0) L 07/16/22 19:19 MCV 91.0 fl (80-94) 07/16/22 19:19 MCH 31.0 pg (28.0-34.0) 07/16/22 19:19 MCHC 34.1 g/dL (30.0-36.0) 07/16/22 19:19 RDW 12.6 % (12.1-15.1) 07/16/22 19:19 Plt Count 163 10^3/cmm (130-400) 07/16/22 19:19 MPV 10.4 fL (7.4-10.4) 07/16/22 19:19 Neut % (Auto) 65.8 % 07/16/22 19:19 Lymph % (Auto) 20.1 % 07/16/22 19:19 Elliott % (Auto) 9.2 % 07/16/22 19:19 Eos % (Auto) 2.9 % 07/16/22 19:19 Baso % (Auto) 0.8 % 07/16/22 19:19 Neut # (Auto) 5.70 10^3/uL (1.8-7.7) 07/16/22 19:19 Lymph # (Auto) 1.7 10^3/uL (0.8-4.8) 07/16/22 19:19 Elliott # (Auto) 0.8 10^3/uL (0.2-0.9) 07/16/22 19:19 Eos # (Auto) 0.3 10^3/uL (0.0-0.8) 07/16/22 19:19 Baso # (Auto) 0.1 10^3/uL (0.0-0.1) 07/16/22 19:19 Nucleated RBC % (auto) 0 % 07/16/22 19:19 Nucleated RBCs # 0.0 /100WBC 07/16/22 19:19 Sodium 133 mmol/L (136-145) L 07/16/22 19:19 Potassium 4.7 mmol/L (3.5-5.1) 07/16/22 19:19 Chloride 103 mmol/L (98-107) 07/16/22 19:19 Carbon Dioxide 20 mmol/L (22-29) L 07/16/22 19:19 Anion Gap 14.7 (5-19) 07/16/22 19:19 BUN 9 mg/dL (8-23) 07/16/22 19:19 Creatinine 0.9 mg/dL (0.7-1.2) 07/16/22 19:19 GFR Calculation Not Reportable 07/16/22 19:19 Glucose 157 mg/dL (65-115) H 07/16/22 19:19 Calculated Osmolality 278 mOsm/kg (285-295) L 07/16/22 19:19 Calcium 8.9 mg/dL (8.5-10.5) 07/16/22 19:19 Total Bilirubin 0.5 mg/dL (0.15-1.2) 07/16/22 19:19 AST 22 U/L (0-40) 07/16/22 19:19 ALT 20 U/L (0-41) 07/16/22 19:19 Alkaline Phosphatase 65 U/L (40-130) 07/16/22 19:19 Troponin T Baseline 11 ng/L (0-15) 07/16/22 19:19 Troponin T 120 Minute 11.11 ng/L (0-15) 07/16/22 21:24 Total Protein 6.9 g/dL (6.6-8.7) 07/16/22 19:19 Albumin 4.2 g/dL (3.5-5.2) 07/16/22 19:19 Globulin 2.7 g/dL (1.3-4.6) 07/16/22 19:19 Lipase 17 U/L (13-60) 07/16/22 19:19 EKG Data EKG 1: I personally reviewed and interpreted this EKG as follows: EKG interpretation date: 07/16/22 EKG interpretation time: 18:23 Interpretation: afib with rvr hr [address] or t wave abnormalities qrs 92 qtc 403 Discharge Plan Discharge Patient Disposition: Home Clinical Impression: Chest pain Qualifiers: Chest pain type: unspecified Qualified Code(s): R07.9 - Chest pain, unspecified Condition: Stable Prescriptions: No Action pregabalin 75 mg capsule 75 mg PO BID metoprolol tartrate 50 mg tablet 50 mg PO BID@ vitamin D60-vwfop acid 500-400 mcg tablet 1 tab PO DAILY@09 ferrous sulfate 325 mg (65 mg iron) tablet 325 mg PO DAILY@21 furosemide 20 mg tablet 20 mg PO DAILY@09 Lantus U-100 Insulin 100 unit/mL solution 50 unit SUBCUT DAILY@21 magnesium 200 mg tablet 400 mg PO BID@09,21 rosuvastatin 20 mg tablet 10 mg PO DAILY@21 Pradaxa 150 mg capsule 150 mg PO BID@09,21 pantoprazole 40 mg tablet,delayed release (DR/EC) 40 mg PO DAILY@09 lisinopril 20 mg tablet 20 mg PO DAILY@09 aspirin [Adult Low Dose Aspirin] 81 mg tablet,delayed release (DR/EC) 81 mg PO DAILY@21 nitroglycerin [Nitrostat] 0.4 mg tablet, sublingual 0.4 mg SUBLINGUAL Q5M PRN (Reason: Chest Pain) budesonide-formoterol 160-4.5 mcg/actuation HFA aerosol inhaler 2 puff inhalation BID methocarbamol 750 mg tablet 750 mg PO TID hydrocortisone [Anusol-HC] 2.5 % cream with perineal applicator 1 applic [place] Q6H Qty: 30 0RF multivitamin Tablet 1 tab PO DAILY@0900 albuterol sulfate 2.5 mg /3 mL (0.083 %) Solution For Nebulization 2.5 mg inhalation PRN albuterol sulfate [ProAir HFA] 90 mcg/actuation Hfa Aerosol Inhaler 2 puff INHALATION Q4H PRN (Reason: Shortness Of Breath) Combivent Respimat 20-100 mcg/actuation mist 1 puff INHALATION QID PRN (Reason: Shortness Of Breath) Ozempic 0.25 mg or 0.5 mg(2 mg/1.5 mL) pen injector 1 mg SUBCUT Q7D Rx Instructions: on tue diphenhydramine HCl [Benadryl] 25 mg Capsule 25 mg PO PRN metformin 750 mg Tablet Extended Release 24 Hr 750 mg PO BID@0900,2100 cetirizine 10 mg Tablet 10 mg PO DAILY@0900 montelukast 10 mg tablet 10 mg PO DAILY@0900 fluticasone furoate 27.5 mcg/actuation [place],Suspension 2 spray INTRANASAL DAILY Discharge Orders: Discharge ED (Routine); Ordered 07/16/22 Ordered By: Korby Abdirahman Referrals: Alesha Hylton MD [Primary Care Provider] - 1-3 days Discharge Diet: Advance as tolerated Discharge Activity: Resume usual activity Patient Instructions: Chest Pain (ED) Coding Level of Care Code ED 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
--- NOTE | 2022-07-16 18:38 | PC.NURSE ---
pt reports epigastric chest pain radiating straight up towards throat that began this morning after eating oatmeal. denies dyspnea, dizziness, lightheadedness, or nausea. pt alert and oriented, respirations even and unlabored, lung sounds clear bilat. bowel sounds present. skin pink/warm/dry.
--- NOTE | 2022-07-16 19:08 | PC.NURSE ---
report given to SONDRA Hansen
--- NOTE | 2022-07-16 19:10 | PC.NURSE ---
report received, assumed care of patient at this time.
[2022-07-16] MEDS: ondansetron 2 mg/ML SDV 2 mL 4 MG IVP (19:19)
[2022-07-16] MEDS: sodium chloride 0.9% 1,000 ML 999 ML IV (19:19)
[2022-07-16] MEDS: lidocaine 2% viscous 15 ML, aluminum-mag hydrox-simethicon 30 ML, sucralfate oral liq 1 GM PO (19:20)
[2022-07-16 19:25] LABS: Basophils # 0.1 10^3/uL (0.0-0.1); Basophils % 0.8 %; Eosinophils # 0.3 10^3/uL (0.0-0.8); Eosinophils % 2.9 %; Hematocrit 39.3 % (42.0-52.0); Hemoglobin 13.4 g/dL (11.7-16.6); Lymphocytes # 1.7 10^3/uL (0.8-4.8); Lymphocytes % 20.1 %; Mean Corpuscular HGB Conc 34.1 g/dL (30.0-36.0); Mean Platelet Volume 10.4 fL (7.4-10.4); Monocytes # 0.8 10^3/uL (0.2-0.9); Monocytes % 9.2 %; Neutrophils % 65.8 %; Nucleated Red Blood Cells % 0 %; Platelet Count 163 10^3/cmm (130-400); Red Blood Count 4.32 10^6/uL (4.1-5.3); Red Cell Distribution Width 12.6 % (12.1-15.1); White Blood Count 8.7 10^3/uL (4.0-10.0)
[2022-07-16 19:48] LABS: Troponin(5th) Baseline 11 ng/L (0-15)
[2022-07-16 19:49] LABS: Alanine Aminotransferase 20 U/L (0-41); Albumin Level 4.2 g/dL (3.5-5.2); Alkaline Phosphatase 65 U/L (40-130); Anion Gap 14.7 (5-19); Aspartate Amino Transferase 22 U/L (0-40); Blood Urea Nitrogen 9 mg/dL (8-23); Calcium 8.9 mg/dL (8.5-10.5); Carbon Dioxide 20 mmol/L (22-29); Chloride 103 mmol/L (98-107); Globulin 2.7 g/dL (1.3-4.6); Glucose 157 mg/dL (65-115); Lipase 17 U/L (13-60); Osmolality Calculated 278 mOsm/kg (285-295); Potassium 4.7 mmol/L (3.5-5.1); Sodium 133 mmol/L (136-145); Total Bilirubin 0.5 mg/dL (0.15-1.2); Total Protein 6.9 g/dL (6.6-8.7)
--- NOTE | 2022-07-16 20:13 | ECG_ITS ---
[facility] Test Date: 2022-07-16 Pat Name: Yvon Trujillo Department: Room: Gender: Male Wardrobe Specialist: : 1945 Requested By: Yahaira Gary Order Number: [id number] Shalini MD: Jessica Casiano M.D. Measurements Intervals [place] Rate: 69 P: [place]: QRS: 1 QRSD: 93 T: -25 QT: 383 QTc: 412 Interpretive Statements Atrial fibrillation with demand pacing POSSIBLE INFERIOR MYOCARDIAL INFARCTION , OF INDETERMINATE AGE Compared to ECG 07/16/2022 18:23:14 Myocardial infarct finding now present Atrial fibrillation no longer present ST (T wave) deviation no longer present Electronically Signed On 07-17-2022 11:16:02 CDT by Jessica Casiano M.D. [id number]
--- NOTE | 2022-07-16 21:25 | PC.NURSE ---
troponin drawn from peripheral iv per policy and procedure and given to lab.
[2022-07-16 21:52] LABS: Troponin 5 2HR 11.11 ng/L (0-15)
[2022-07-16 21:57] LABS: Troponin 5 2HR Delta 0.11 ABS# (0-10)
== END 2022-07-16 22:21 | disposition home or self-care (01) ==
PROVIDERS: Emergency Provider Emergency Medicine; PCP Family Medicine
DX: R07.9 Chest pain, unspecified (principal); I25.10 Atherosclerotic heart disease of native coronary artery without angina pectoris; I48.91 Unspecified atrial fibrillation; I10 Essential (primary) hypertension; Z95.0 Presence of cardiac pacemaker
CPT/HCPCS: 36415; 71045; 80053; 83690; 84484; 85025; 93005; 96361; 96374; 99285; J2405; J7030

== ENCOUNTER → 2022-10-08 08:13 | Outpatient (BNVA) | payer OTHER, SELFPAY | PROVIDERS: PCP Family Medicine; Visit Provider Nurse Practitioner Family | DX: I25.10 Atherosclerotic heart disease of native coronary artery without angina pectoris (principal); I35.0 Nonrheumatic aortic (valve) stenosis; I10 Essential (primary) hypertension; Z95.0 Presence of cardiac pacemaker; Z87.891 Personal history of nicotine dependence; Z95.1 Presence of aortocoronary bypass graft | CPT/HCPCS: 99214 ==

== ENCOUNTER 2023-01-25 10:59 | Outpatient (CLI) | payer OTHER, SELFPAY ==
--- NOTE | 2023-01-25 11:15 | USCV_ITS ---
LisbetYvon bardales Age: 77 Gender: M : 1945 Exam Date: 01/25/2023 11:31 Ordering Phys: Jennifer Isaac Technologist: Denny Pereira [place] [facility] [place]: ao stenosis BP: 130 / 22 HR: 70 Rhythm: Other Technical Quality: Adequate MEASUREMENTS (Male / Female) Normal Values 2D ECHO LV Diastolic Diameter PLAX 3.5 cm 4.2 - 5.9 / 3.9 - 5.3 cm LV Systolic Diameter PLAX 2.2 cm IVS Diastolic Thickness 0.9 cm 0.6 - 1.0 / 0.6 - 0.9 cm IVS Systolic Thickness 0.8 cm LVPW Diastolic Thickness 0.9 cm 0.6 - 1.0 / 0.6 - 0.9 cm LVPW Systolic Thickness 1.4 cm LVOT Diameter 2.1 cm LV Ejection Fraction 2D Teich 68.1 % LV Ejection Fraction MOD 2C 63.2 % LV Ejection Fraction 2C AL 66.2 % LA Diameter 4.8 cm LA Width 3.9 cm LA Height 5.7 cm RA Width 3.4 cm RA Height 5.2 cm Aorta at Sinotubular Diameter 2.9 cm IVC Diameter 1.9 cm M-MODE Aortic Annulus Diameter 2.3 cm LA Ao Ratio MM 1.9 MV E Point Septal Separation 0.9 cm DOPPLER AV Peak Velocity 305.8 cm/s LVOT Peak Velocity 68.0 cm/s AV Area Cont Eq vti 0.6 cm squared AV Area Cont Eq pk 0.7 cm squared MV Peak Velocity 167.0 cm/s MV Area PHT 9.6 cm squared Mitral E to A Ratio 3.8 MV E' Velocity 56.0 cm/s Mitral E to MV E' Ratio 11.3 Mitral E to LV E' Lateral Ratio 9.6 Mitral E to LV E' Septal Ratio 14.0 TR Peak Velocity 316.0 cm/s TR Peak Gradient 39.9 mmHg TR Mean Velocity 244.3 cm/s TR Mean Gradient 25.6 mmHg TR Velocity Time Integral 93.7 cm Right Atrial Pressure 3.0 mmHg Pulmonary Artery Systolic Pressu 42.9 mmHg PV Peak Velocity 101.7 cm/s RV Acceleration Time 0.1 s RV Ejection Time 0.3 s RV AcT/ET 0.2 FINDINGS Left Ventricle Normal left ventricular size and systolic function, EF 57 %. No regional wall motion abnormalities. Right Ventricle Normal right ventricular size and systolic function. Right Atrium Catheter/pacemaker wire in the right atrial appendage. Moderately increased right atrial size. Left Atrium Moderately increased left atrial size. Mitral Valve Thickened mitral valve. Mild mitral annular calcification. Aortic Valve Severe low gradient aortic valve stenosis, mean gradient 21.3 mmHg, VICENTE 0.59 cm squared. Peak velocity across the valve was 3.1 m/s with a peak gradient of 39 mmHg Tricuspid Valve Moderate tricuspid valve regurgitation. Pulmonic Valve Thickened pulmonic valve. Estimated pulmonary artery peak systolic pressure of 43 mmHg. The tricuspid regurgitation velocity was 3.18 m/s Pericardium No pericardial effusion. Aorta Normal aortic annulus size. IVC Inferior vena cava not visualized. CONCLUSIONS Normal left ventricular size and systolic function, EF 57 %. No regional wall motion abnormalities. Moderate biatrial enlargement. Severe low gradient aortic valve stenosis, mean gradient 21.3 mmHg, VICENTE 0.59 cm squared. Peak velocity across the valve was 3.1 m/s with a peak gradient of 39 mmHg. Thickened mitral valve. Mild mitral annular calcification. Moderate tricuspid valve regurgitation. Mild pulmonary hypertension with an estimated pulmonary artery peak systolic pressure of 43 mmHg and mean pressure of 26 mmHg. There is no pericardial effusion. There are no intracardiac masses. Compared to the study from 07/16/2021, there is slight worsening of the aortic valve stenosis Dr Frandy Patel MD [facility] (Electronically Signed) Final Date: 02 February 2023 02:09 S
== END 2023-01-25 11:00 | disposition home or self-care (01) ==
LOC: RAD 11:02
PROVIDERS: PCP Family Medicine; Visit Provider Nurse Practitioner Family
DX: I27.20 Pulmonary hypertension, unspecified; I08.3 Combined rheumatic disorders of mitral, aortic and tricuspid valves
CPT/HCPCS: 93306

== ENCOUNTER → 2023-02-14 09:28 | Outpatient (BNVA) | payer OTHER, SELFPAY | PROVIDERS: PCP Family Medicine; Visit Provider Internal Medicine Cardiovascular Disease | DX: I73.9 Peripheral vascular disease, unspecified (principal); I25.10 Atherosclerotic heart disease of native coronary artery without angina pectoris; I35.0 Nonrheumatic aortic (valve) stenosis; I48.20 Chronic atrial fibrillation, unspecified; I10 Essential (primary) hypertension; Z95.0 Presence of cardiac pacemaker; E78.2 Mixed hyperlipidemia; Z87.891 Personal history of nicotine dependence; Z95.1 Presence of aortocoronary bypass graft | CPT/HCPCS: 99214 ==

== ENCOUNTER 2023-06-21 12:41 | Outpatient (CLI) | payer OTHER, SELFPAY ==
--- NOTE | 2023-06-21 12:48 | ECG_ITS ---
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 Interpretive Statements NAME OF STUDY: TREADMILL STRESS ECHOCARDIOGRAM INDICATION: Evaluate Aortic Valve Stenosis PROCEDURE: At the baseline, the patient's blood pressure was 117/70 with a heart rate of 59 bpm. The baseline electrocardiogram showed atrial fibrillation with T wave inversion in lead III, aVF. The patient exercised for 1 min 59 seconds on a [standard Romel protocol]. Patient attained a maximum heart rate of 151 beats per minute( 106 % of the maximum predicted heart rate) with a blood pressure at the peak exercise of 151/65 mm Hg. The EKG at the peak exercise revealed no significant ST-T wave changes. Patient did [not have any chest pain or any significant EKG changes with the exercise.] During the recovery phase, there were no new changes. Blood pressure at the end of the recovery phase was 125/51 mm Hg with a heart rate of 78 beats per minute. Echocardiographic pictures were taken at the baseline, immediately following the peak exercise and during the recovery phase. CONCLUSION: 1. Normal EKG response to treadmill exercise. 2. No exercise-induced chest pain or cardiac arrhythmia. 3. Decreased exercise tolerance, attained a maximum of 4.6 METs 4. Please see separate report for the echocardiographic response to exercise. Electronically Signed On 09-03-2023 15:29:13 SENIOR CONSTRUCTION MANAGER by Jessica Casiano M.D. [id number]
--- NOTE | 2023-06-21 12:48 | USCV_ITS ---
Stress Echo Yvon Trujillo Age: 78 Gender: M : 1945 Exam Date: 06/21/2023 13:42 Ordering Phys: Frandy Patel MD ([email or web address]) Technologist: Karthikeyan Hedrick [place] [facility] [place]: Evaluate Aortic Stenosis Rhythm: Atrial fibrillation Patient History: CABG, HTN, DM, Hyperlipidemia , CAD, Afib, Pacemaker, Former Smoker, ASHD Cardiac Medications: Lisinopril 20mg QD, Metoprolol 50mg BID Medications in past 24 hours: Metropolol 50mg 06/20 at 0800 Contrast: Stress Results Protocol: Romel Total dose(mL): Exercise Duration (min:sec): 1:59 METS: 4.6 Resting HR: 71 Resting BP: 117 / 70 Peak HR: 151 Peak BP: 152 / 70 Max Predicted HR: 142 106 % Max Predicted HR Target HR: 121 Double Product: [id number] Stress Summary: The patient's target heart rate was achieved BP Response: Normal Reason for Termination: Reached target heart rate or work-load Cardiac Symptoms: SOB with Exertion ECG Analysis Resting ECG: Stress ECG: Arrhythmia: MEASUREMENTS (Male/Female) Normal Values 2D ECHO LVOT Diameter 2.1 cm DOPPLER AV Peak Velocity 346.0 cm/s LVOT Peak Velocity 76.7 cm/s AV Area Cont Eq vti 0.7 cm squared AV Area Cont Eq pk 0.7 cm squared FINDINGS Testing velocity across the aortic valve is 2.8 cm/s with a peak gradient of 33 and a mean gradient of 16 mmHg. Valve area was 0.76 cm squared with an index of 0.4. With a peak exercise, the velocity across the aortic valve is 3.58 m/s with a peak gradient of 54 and a mean gradient of 29.7 mmHg the valve area was 0.8 cm squared with an index of 0.42 The resting stroke-volume was 59.1 mL with a stroke-volume index of 31 mL/m squared CONCLUSIONS The stress echo is suggestive of paradoxical low-flow, low gradient severe aortic valve stenosis Dr Frandy Patel MD [facility] (Electronically Signed) Final Date: 22 June 2023 16:55 S
[2023-06-21 12:51] VITALS: BMI 32.1
--- NOTE | 2023-06-21 12:51 | PC.NURSE ---
Procedure Clarification Order clarified with stress echo for Aortic Valve study with Dr. Patel via phone. Received verbal orders to walk patient on treadmill until HR is 20beats above baseline.
[2023-06-21 14:03] VITALS: BP 125/51; PULSE 75
== END 2023-06-21 12:42 | disposition home or self-care (01) ==
LOC: CDL 12:41
PROVIDERS: PCP Family Medicine; Visit Provider Internal Medicine Cardiovascular Disease
DX: I35.0 Nonrheumatic aortic (valve) stenosis (principal); I48.91 Unspecified atrial fibrillation; I10 Essential (primary) hypertension; E11.9 Type 2 diabetes mellitus without complications; E78.5 Hyperlipidemia, unspecified; I25.10 Atherosclerotic heart disease of native coronary artery without angina pectoris; F17.200 Nicotine dependence, unspecified, uncomplicated; Z95.1 Presence of aortocoronary bypass graft
CPT/HCPCS: 93017; 93350

== ENCOUNTER → 2023-07-20 10:45 | Outpatient (BNVA) | payer OTHER, SELFPAY | PROVIDERS: PCP Family Medicine; Visit Provider Nurse Practitioner Family | DX: I35.0 Nonrheumatic aortic (valve) stenosis (principal); I25.10 Atherosclerotic heart disease of native coronary artery without angina pectoris; Z87.891 Personal history of nicotine dependence; I10 Essential (primary) hypertension; Z95.0 Presence of cardiac pacemaker | CPT/HCPCS: 99214 ==

== ENCOUNTER 2023-07-22 21:20 | Emergency (ER) | payer OTHER, SELFPAY ==
[2023-07-22 21:24] VITALS: BP 121/73; PULSE 77; RESP 17; TEMP 36.6; O2SAT 94; BMI 30.5
--- NOTE | 2023-07-22 21:45 | CTR_ITS ---
PROCEDURE INFORMATION: Exam: CT Abdomen And Pelvis With Contrast Exam date and time: 07/22/2023 10:34 PM Age: 78 years old Clinical indication: Abdominal pain; Generalized; Prior surgery; Surgery date: 6+ months; Surgery type: Prostate- cancer; Additional info: Abd pain TECHNIQUE: Imaging protocol: Computed tomography of the abdomen and pelvis with contrast. Sagittal and coronal reformatted images were created and reviewed. Radiation optimization: All CT scans at this facility use at least one of these dose optimization techniques: automated exposure control; mA and/or kV adjustment per patient size (includes targeted exams where dose is matched to clinical indication); or iterative reconstruction. Contrast material: OMNIPAQUE 350; Contrast volume: 100 ml; Contrast route: INTRAVENOUS (IV); REPORTING DATA: Count of CT and Cardiac NM exams in prior 12 months: This patient has received 0 known CTs and 0 known cardiac nuclear medicine studies in the 12 months prior to the current study. COMPARISON: CT abdomen pelvis wo/w [id number] 08/04/2021 12:06 PM RADIATION DOSE METRICS: Total DLP (mGy-cm): 801.91 FINDINGS: Tubes, catheters and devices: Lead from a cardiac pacer in the right ventricle. Lungs: Stable interstitial fibrotic changes in the visualized lungs. Pleural spaces: No pleural effusion. Heart: Stable mild enlargement of the visualized portions of the heart. Calcification of the aortic valve and mitral valve annulus. Coronary arteries: Moderate atherosclerotic calcification in the visualized coronary arteries. Liver: Hepatic granuloma is stable. Gallbladder and bile ducts: The gallbladder is unremarkable. No biliary ductal dilatation. Pancreas: Stable moderate atrophy of the pancreatic parenchyma. No pancreatic ductal dilatation. Spleen: Multiple calcified granulomas in the spleen are stable. Small splenule in the left upper quadrant. Adrenal glands: The right and left adrenal glands are unremarkable. Kidneys and ureters: Stable subcentimeter hypodense foci in both right and left kidneys that are too small to characterize, however likely represent small cysts. Stomach and bowel: The stomach is unremarkable for the degree of distension. Numerous diverticula in the sigmoid colon, findings are stable. No evidence for diverticulitis. Fluid within the small bowel without evidence of bowel wall thickening. Appendix: The appendix is visualized and is unremarkable. No findings to suggest acute appendicitis. Intraperitoneal space: No free intraperitoneal air. No ascites. No loculated fluid collections to suggest an abscess. Vasculature: Stable extensive atherosclerotic calcifications in the visualized arteries. Approximate 90% stenosis in the left common femoral artery. No evidence for aortic aneurysm or aortic dissection. Hepatic veins, portal veins, splenic vein, and SMV are patent. Lymph nodes: No lymphadenopathy. Urinary bladder: Diffuse, moderate wall thickening of the bladder. Reproductive: Stable findings consistent with a previous prostatectomy. Bones/joints: Degenerative changes in the spine, sacroiliac joints, and hips. Poststernotomy changes in the chest. Patient has had an interval spinal fusion from L2 through S1 with L2 through L5 laminectomies. Soft tissues: There are now postsurgical changes at the right groin with resection of a large calcified plaque in the right common femoral artery. No acute abnormality in the extra-abdominal soft tissues. CT/CT abdomen pelvis w con* [id number] IMPRESSION: 1. Fluid within the small bowel without evidence of bowel wall thickening. This may reflect viral gastroenteritis in the appropriate clinical situation. 2. Diffuse, moderate wall thickening of the bladder. In the correct clinical setting, this may suggest cystitis. Recommend correlation with laboratory findings. Alternatively, this may be secondary to chronic outlet obstruction. 3. Stable sigmoid diverticulosis. No evidence for diverticulitis. 4. Stable extensive atherosclerotic calcifications in the visualized arteries. Approximate 90% stenosis in the left common femoral artery. 5. There are now postsurgical changes at the right groin with resection of a large calcified plaque in the right common femoral artery. 6. Patient has had an interval spinal fusion from L2 through S1 with L2 through L5 laminectomies. 7. Incidental/nonacute findings are listed in the report.
[2023-07-22 21:47] LABS: Basophils % 0.3 %; Eosinophils # 0.5 10^3/uL (0.0-0.8); Eosinophils % 4.3 %; Hematocrit 48.2 % (37-53); Lymphocytes # 2.4 10^3/uL (0.8-4.8); Lymphocytes % 19.7 %; Mean Corpuscular HGB Conc 31.7 g/dL (30-55); Mean Corpuscular Hemoglobin 29.3 pg (27-33); Mean Corpuscular Volume 92.2 fl (82-101); Mean Platelet Volume 9.9 fL (7.4-10.4); Monocytes # 0.6 10^3/uL (0.2-0.9); Monocytes % 4.8 %; Neutrophils # 8.47 10^3/uL (1.8-7.7); Neutrophils % 69.6 %; Nucleated Red Blood Cells % 0 %; Platelet Count 145 10^3/cmm (157-399); Red Blood Count 5.23 10^6/uL (3.85-5.65); Red Cell Distribution Width 14.5 % (12.1-15.1); White Blood Count 12.16 10^3/uL (3.29-11.43)
--- NOTE | 2023-07-22 21:56 | ED_ITS ---
HPI - Nausea/Vomiting/Diarrhea General: Chief complaint: Nausea/Vomiting/Diarrhea Stated complaint: n/v, abdomen pain Time Seen by Provider: 07/22/23 21:36 Source: patient Mode of arrival: ambulatory Limitations: no limitations History of Present Illness: 78-year-old male states over the last 2 weeks has been having diffuse abdominal cramping he states he is also been having nausea and vomiting for 2 weeks. States he has not tried any medications he denies any worsening proving factors he rates pain a 4 out of 10 had no diarrhea denies any chest pain. PFSH ED PFSH: Medical History Atherosclerotic heart disease [place] coronary artery w/angina pectoris CAD (coronary artery disease) Chronic episodic atrial fibrillation COPD (chronic obstructive pulmonary disease) Diabetes Hyperlipidemia Hypertension Intestinal angina Pacemaker PUD (peptic ulcer disease) PVD (peripheral vascular disease) Surgical History H/O mastectomy History of prostatectomy Hx of CABG Hx of spinal surgery Family History Other Adopted Social History Smoking and tobacco status: former smoker Alcohol intake: current Alcohol intake frequency: holidays/special occasions only Substance/Drug Use: never Physical Exam Const: COMMON NORMALS: no acute distress, patient oriented x3 and healthy appearing HENMT: COMMON NORMALS: normocephalic and atraumatic HEAD & SCALP: norm ocephalic and atraumatic Eye: COMMON NORMALS: Equal, round and reactive pupils present and EOMs intact bilaterally PUPIL: Yes Equal, round and reactive pupils present Neck/C-Spine: COMMON NORMALS: full ROM and supple Chest: COMMONS NORMALS: normal inspection of the chest and normal palpation of entire chest wall Resp: COMMON NORMALS: normal respiratory effort, No retractions, No use of accessory muscles and clear to auscultation bilaterally AUSCULTATION: clear to auscultation bilaterally Cardio: COMMON NORMALS: regular rate, regular rhythm and No murmurs present (Cardio) RATE: regular rate RHYTHM: regular rhythm GI: COMMON NORMALS: Normal to inspection, nondistended, normoactive bowel sounds present, Soft to palpation, non-tender and no masses PALPATION: Yes Soft to palpation Extremity: COMMON NORMALS: normal to inspection and full ROM Neuro: COMMON NORMALS: patient oriented x3, moves all extremities and no focal motor deficits Psych: COMMON NORMALS: mental status grossly normal, Normal thought process present and cooperative THOUGHT PROCESS: Normal thought process present Skin: COMMON NORMALS: no rashes or lesions noted and no wounds GENERAL SKIN EXAM: no rashes or lesions noted Course Vital Signs: Vital signs: Vital Signs Temperature 97.9 F 07/22/23 21:24 Pulse Rate 76 07/23/23 00:13 Respiratory Rate 18 07/23/23 00:13 Blood Pressure 108/64 07/23/23 00:13 Pulse Oximetry 92 07/23/23 00:13 Oxygen Delivery Me thod Room Air 07/22/23 21:24 MDM - Nausea/Vomiting/Diarrhea Medical Decision Making Patient presents here with nausea vomiting he feels much improved after Zofran him able to tolerate p.o. patient's CAT scan showed no acute abnormalities blood works normal he is stable for discharge he is to follow-up with PCP and return if worsening. Medical Records I reviewed the patient's medical records. Lab Data I reviewed the patient's lab results. 07/22/23 21:40 07/22/23 21:40 Radiology Impressions Abdomen/Pelvis CT 07/22/23 21:45 IMPRESSION: 1. Fluid within the small bowel without evidence of bowel wall thickening. This may reflect viral gastroenteritis in the appropriate clinical situation. 2. Diffuse, moderate wall thickening of the bladder. In the correct clinical setting, this may suggest cystitis. Recommend correlation with laboratory findings. Alternatively, this may be secondary to chronic outlet obstruction. 3. Stable sigmoid diverticulosis. No evidence for diverticulitis. 4. Stable extensive atherosclerotic calcifications in the visualized arteries. Approximate 90% stenosis in the left common femoral artery. 5. There are now postsurgical changes at the right groin with resection of a large calcified plaque in the right common femoral artery. 6. Patient has had an interval spinal fusion from L2 through S1 with L2 through L5 laminectomies. 7. Incidental/nonacute findings are listed in the report. Laboratory Results WBC 12.16 10^3/uL (3.29-11.43) H 07/22/23 21:40 RBC 5.23 10^6/uL (3.85-5.65) 07/22/23 21:40 Hgb 15.30 g/dL (11.27-16.99) 07/22/23 21:40 Hct 48.2 % (37-53) 07/22/23 21:40 MCV 92.2 fl (82-101) 07/22/23 21:40 MCH 29.3 pg (27-33) 07/22/23 21:40 MCHC 31.7 g/dL (30-55) 07/22/23 21:40 RDW 14.5 % (12.1-15.1) 07/22/23 21:40 Plt Count 145 10^3/cmm (157-399) L 07/22/23 21:40 MPV 9.9 fL (7.4-10.4) 07/22/23 21:40 Neut % (Auto) 69.6 % 07/22/23 21:40 Lymph % (Auto) 19.7 % 07/22/23 21:40 [place] % (Auto) 4.8 % 07/22/23 21:40 Eos % (Auto) 4.3 % 07/22/23 21:40 Baso % (Auto) 0.3 % 07/22/23 21:40 Neut # (Auto) 8.47 10^3/uL (1.8-7.7) H 07/22/23 21:40 Lymph # (Auto) 2.4 10^3/uL (0.8-4.8) 07/22/23 21:40 [place] # (Auto) 0.6 10^3/uL (0.2-0.9) 07/22/23 21:40 Eos # (Auto) 0.5 10^3/uL (0.0-0.8) 07/22/23 21:40 Baso # (Auto) 0.0 10^3/uL (0.0-0.1) 07/22/23 21:40 Nucleated RBC % (auto) 0 % 07/22/23 21:40 Nucleated RBCs # 0.0 /100WBC 07/22/23 21:40 Sodium 131 mmol/L (136-145) L 07/22/23 21:40 Potassium 4.8 mmol/L (3.5-5.1) 07/22/23 21:40 Chloride 96 mmol/L (98-107) L 07/22/23 21:40 Carbon Dioxide 22 mmol/L (22-29) 07/22/23 21:40 Anion Gap 17.8 (5-19) 07/22/23 21:40 BUN 25 mg/dL (8-23) H 07/22/23 21:40 Creatinine 1.2 mg/dL (0.7-1.2) 07/22/23 21:40 GFR Calculation Not Reportable 07/22/23 21:40 Glucose 303 mg/dL (65-115) H 07/22/23 21:40 Calculated Osmolality 288 mOsm/kg (285-295) 07/22/23 21:40 Calcium 8.7 mg/dL (8.5-10.5) 07/22/23 21:40 Total Bilirubin 0.4 mg/dL (0.15-1.2) 07/22/23 21:40 AST 22 U/L (0-40) 07/22/23 21:40 ALT 26 U/L (0-41) 07/22/23 21:40 Alkaline Phosphatase 61 U/L (40-130) 07/22/23 21:40 Total Protein 6.5 g/dL (6.6-8.7) L 07/22/23 21:40 Albumin 4.3 g/dL (3.5-5.2) 07/22/23 21:40 Globulin 2.2 g/dL (1.3-4.6) 07/22/23 21:40 Lipase 21 U/L (13-60) 07/22/23 21:40 Urine Color Yellow (Yellow) 07/22/23 23:25 Urine Appearance Clear (CLEAR) 07/22/23 23:25 Urine pH 5 (5-7) 07/22/23 23:25 Ur Specific [place] 1.005 (1.005-1.030) 07/22/23 23:25 Urine Protein Neg (Negative) 07/22/23 23:25 Urine Glucose (UA) 2+ (Normal) H 07/22/23 23:25 Urine Ketones Negative (Negative) 07/22/23 23:25 Urine Blood Neg (Negative) 07/22/23 23:25 Urine Nitrate Negative (Negative) 07/22/23 23:25 Urine Bilirubin Neg (Negative) 07/22/23 23:25 Urine Urobilinogen Neg mg/dL (Negative) 07/22/23 23:25 Ur Leukocyte Esterase 1+ (Negative) H 07/22/23 23:25 Urine RBC Rare /hpf (0-2) 07/22/23 23:25 Urine WBC 5-10 /hpf (0-5) H 07/22/23 23:25 Ur Squamous Epith Cells Rare /hpf (0-5) 07/22/23 23:25 Amorphous Sediment Not Reportable 07/22/23 23:25 Urine Bacteria Trace /hpf (NONE) 07/22/23 23:25 Hyaline Casts Rare /lpf 07/22/23 23:25 All radiology interpretation(s) finalized by discharge Discharge Plan Discharge Patient Disposition: Home Clinical Impression: Vomiting Condition: Stable Prescriptions: New ondansetron 4 mg tablet,disintegrating 4 mg PO Q6H PRN (Reason: nausea and vomiting) Qty: 14 0RF No Action pregabalin 75 mg capsule 75 mg PO BID metoprolol tartrate 50 mg tablet 50 mg PO BID@09,21 vitamin K77-nrtfl acid 500-400 mcg tablet 1 tab PO DAILY@09 ferrous sulfate 325 mg (65 mg iron) tablet 325 mg PO DAILY@21 furosemide 20 mg tablet 20 mg PO DAILY@09 Lantus U-100 Insulin 100 unit/mL solution 50 unit SUBCUT DAILY@21 magnesium 200 mg tablet 400 mg PO BID@09,21 rosuvastatin 20 mg tablet 10 mg PO DAILY@21 Pradaxa 150 mg capsule 150 mg PO BID@09,21 pantoprazole 40 mg tablet,delayed release (DR/EC) 40 mg PO DAILY@09 nitroglycerin [Nitrostat] 0.4 mg tablet, sublingual 0.4 mg SUBLINGUAL Q5M PRN (Reason: Chest Pain) lisinopril 20 mg tablet 10 mg PO DAILY@09 budesonide-formoterol 160-4.5 mcg/actuation HFA aerosol inhaler 2 puff inhalation BID hydrocortisone [Anusol-HC] 2.5 % cream with perineal applicator 1 applic AL Q6H Qty: 30 0RF multivitamin Tablet 1 tab PO DAILY@0900 albuterol sulfate 2.5 mg /3 mL (0.083 %) Solution For Nebulization 2.5 mg inhalation PRN albuterol sulfate [ProAir HFA] 90 mcg/actuation Hfa Aerosol Inhaler 2 puff INHALATION Q4H PRN (Reason: Shortness Of Breath) Combivent Respimat 20-100 mcg/actuation mist 1 puff INHALATION QID PRN (Reason: Shortness Of Breath) Ozempic 0.25 mg or 0.5 mg(2 mg/1.5 mL) pen injector 1 mg SUBCUT Q7D Rx Instructions: on tue diphenhydramine HCl [Benadryl] 25 mg Capsule 25 mg PO PRN metformin 750 mg Tablet Extended Release 24 Hr 750 mg PO BID@0900,2100 cetirizine 10 mg Tablet 10 mg PO DAILY@0900 montelukast 10 mg tablet 10 mg PO DAILY@0900 fluticasone furoate 27.5 mcg/actuation [place],Suspension 2 spray INTRANASAL DAILY Discharge Orders: Discharge ED (Routine); Ordered 07/22/23 Ordered By: Yahaira Gary Referrals: Alesha Hylton MD [Primary Care Provider] - 1-3 days Discharge Diet: Advance as tolerated Discharge Activity: Resume usual activity Patient Instructions: Acute Nausea and Vomiting (ED) Coding Level of Care Code ED General Farm Hand for Jenna Hooker
[2023-07-22 22:11] VITALS: RESP 18
[2023-07-22] MEDS: morphine 4 mg/mL SDV 1 mL IVP (22:11)
[2023-07-22] MEDS: sodium chloride 0.9% 1,000 ML 999 ML IV (22:11)
[2023-07-22] MEDS: ondansetron 2 mg/ML SDV 2 mL 4 MG IVP (22:11)
[2023-07-22 22:18] VITALS: BP 157/102
[2023-07-22 22:20] LABS: Alanine Aminotransferase 26 U/L (0-41); Albumin Level 4.3 g/dL (3.5-5.2); Alkaline Phosphatase 61 U/L (40-130); Aspartate Amino Transferase 22 U/L (0-40); Blood Urea Nitrogen 25 mg/dL (8-23); Calcium 8.7 mg/dL (8.5-10.5); Carbon Dioxide 22 mmol/L (22-29); Chloride 96 mmol/L (98-107); Globulin 2.2 g/dL (1.3-4.6); Glucose 303 mg/dL (65-115); Lipase 21 U/L (13-60); Osmolality Calculated 288 mOsm/kg (285-295); Sodium 131 mmol/L (136-145); Total Bilirubin 0.4 mg/dL (0.15-1.2); Total Protein 6.5 g/dL (6.6-8.7)
[2023-07-22 22:25] LABS: Anion Gap 17.8 (5-19); Potassium 4.8 mmol/L (3.5-5.1)
[2023-07-22] MEDS: iohexol 350 mg/mL 500 mL Btl (per mL) IV (22:30)
[2023-07-22 23:48] LABS: Add Urine Microscopic? YES; Bilirubin Urine Neg (Negative); Blood Urine Neg (Negative); Glucose Urine UA 2+ (Normal); Ketones Urine Negative (Negative); Leukocyte Esterase Urine 1+ (Negative); Nitrate Urine Negative (Negative); Protein Urine Neg (Negative); Specific Gravity, Urine 1.005 (1.005-1.030); Urine Appearance Clear (CLEAR); Urine Color Yellow (Yellow); Urobilinogen Urine Neg (Negative); pH Urine 5 (5-7)
[2023-07-22 23:55] LABS: Add Urine Culture? No; Bacteria Urine TRACE /hpf; Hyaline Casts Urine RARE /lpf; RBC Urine RARE /hpf (0-2); Squamous Epithelial Cell Urine RARE /hpf (0-5)
[2023-07-23 00:13] VITALS: BP 108/64; PULSE 76; RESP 18; O2SAT 92
[2023-07-23] MEDS: ondansetron 4 MG Tablet PO (00:15)
== END 2023-07-23 00:21 | disposition home or self-care (01) ==
PROVIDERS: Emergency Provider Emergency Medicine; PCP Family Medicine
DX: R11.11 Vomiting without nausea (principal); Z79.4 Long term (current) use of insulin; Z79.84 Long term (current) use of oral hypoglycemic drugs; K57.30 Diverticulosis of large intestine without perforation or abscess without bleeding; I25.10 Atherosclerotic heart disease of native coronary artery without angina pectoris; J44.9 Chronic obstructive pulmonary disease, unspecified; E11.9 Type 2 diabetes mellitus without complications; E78.5 Hyperlipidemia, unspecified; I10 Essential (primary) hypertension; Z95.0 Presence of cardiac pacemaker; Z95.1 Presence of aortocoronary bypass graft; Z87.891 Personal history of nicotine dependence
CPT/HCPCS: 36415; 74177; 80053; 81001; 83690; 85025; 96361; 96374; 96375; 96376; 99285; J2270; J2405; J7030; Q0162; Q9967

== ENCOUNTER → 2023-08-04 16:01 | Outpatient (BNVA) | payer OTHER, SELFPAY | PROVIDERS: PCP Family Medicine; Visit Provider Internal Medicine Cardiovascular Disease | DX: Z45.010 Encounter for checking and testing of cardiac pacemaker pulse generator [battery] (principal) | CPT/HCPCS: 93296 ==

== ENCOUNTER 2023-08-05 07:46 | Outpatient (CLI) | payer OTHER, SELFPAY ==
--- NOTE | 2023-08-05 07:59 | FL_ITS ---
WS: [id number] Barium swallow and esophagram, 08/05/2023 Clinical Data: Dysphagia Comparison: Barium swallow, 07/09/2015 Fluoroscopy time: 1min [id number] # of spot films: 36 Findings: The patient swallowed the thick and thin barium, and it flowed through the hypopharynx without hesita tion. No stricture, mass, polyp or erosion was seen. There was osteoarthritis of the cervical vertebr al bodies from C3-C7 which impinge slightly under the posterior hypopharynx. The barium entered the esophagus and there was normal motility in the superior half of the esophagus. There are tertiary contractions in the lower half of the esophagus. There was a small hernia but no reflux, stricture, polyp, mass, erosion or ulcer was noted. Impression: 1. Osteoarthritis of the cervical spine which impinges slightly under the posterior hypopharynx. 2. Distal tertiary contractions. 3. Small hiatal hernia without reflux.
== END 2023-08-05 07:47 | disposition home or self-care (01) ==
LOC: RAD 07:47
PROVIDERS: PCP Family Medicine; Visit Provider Family Medicine
DX: R13.10 Dysphagia, unspecified (principal); M47.812 Spondylosis without myelopathy or radiculopathy, cervical region; K44.9 Diaphragmatic hernia without obstruction or gangrene
CPT/HCPCS: 74220

== ENCOUNTER → 2023-08-08 10:02 | Outpatient (BNVA) | payer OTHER, SELFPAY | PROVIDERS: PCP Family Medicine; Visit Provider Otolaryngology | DX: R13.10 Dysphagia, unspecified (principal); K22.0 Achalasia of cardia | CPT/HCPCS: 31575; 99203 ==

== ENCOUNTER 2023-08-19 22:52 | Emergency (ER) | payer OTHER, SELFPAY ==
[2023-08-19 22:59] VITALS: BP 96/62; PULSE 81; RESP 10; TEMP 36.7; O2SAT 95; BMI 30.9
--- NOTE | 2023-08-19 23:23 | XRR_ITS ---
PROCEDURE INFORMATION: Exam: XR Chest Exam date and time: 08/19/2023 11:29 PM Age: 78 years old Clinical indication: Chest pressure; Prior surgery; Surgery date: 6+ months; Surgery type: Cabg; Patient HX: C/O chest pain. History of prostate cancer. ; Additional info: Cp TECHNIQUE: Imaging protocol: Radiologic exam of the chest. Views: 1 view. COMPARISON: CR XR chest 1V portable [id number] 07/16/2022 6:32 PM FINDINGS: Limitations: The study is made with less than full inspiration. Tubes, catheters and devices: A pacemaker device is present, and its leads are in appropriate position. Lungs: Visualized portions of the lungs are clear. Pleural spaces: Unremarkable. No pleural effusion. No pneumothorax. Heart/Mediastinum: Heart is within normal limits of size. Bones/joints: Sternotomy wires and mediastinal surgical clips are present, consistent with coronary arterial bypass grafting. XR/XR chest 1V portable [id number] IMPRESSION: No acute infiltrate.
[2023-08-19 23:26] VITALS: BP 101/61; PULSE 74; RESP 17; O2SAT 94
[2023-08-19 23:35] LABS: Basophils % 0.5 %; Eosinophils # 0.2 10^3/uL (0.0-0.8); Eosinophils % 2.6 %; Hematocrit 38.7 % (37-53); Lymphocytes # 1.9 10^3/uL (0.8-4.8); Lymphocytes % 28.7 %; Mean Corpuscular HGB Conc 33.1 g/dL (30-55); Mean Corpuscular Hemoglobin 29.2 pg (27-33); Mean Corpuscular Volume 88.4 fl (82-101); Mean Platelet Volume 11.6 fL (7.4-10.4); Monocytes # 0.6 10^3/uL (0.2-0.9); Monocytes % 8.8 %; Neutrophils # 3.85 10^3/uL (1.8-7.7); Neutrophils % 58.5 %; Nucleated Red Blood Cells % 0 %; Platelet Count 137 10^3/cmm (157-399); Red Blood Count 4.38 10^6/uL (3.85-5.65); Red Cell Distribution Width 14.6 % (12.1-15.1); White Blood Count 6.58 10^3/uL (3.29-11.43)
[2023-08-20 00:08] LABS: INR 1.34 (0.8-1.2)
[2023-08-20 00:09] LABS: Partial Thromboplastin Time 48.5 SECONDS (23.9-36.7)
[2023-08-20 00:26] LABS: Troponin(5th) Baseline 16 ng/L (0-15)
[2023-08-20 00:32] LABS: Alanine Aminotransferase 12 U/L (0-41); Albumin Level 4.3 g/dL (3.5-5.2); Alkaline Phosphatase 53 U/L (40-130); Anion Gap 17.1 (5-19); Aspartate Amino Transferase 18 U/L (0-40); Blood Urea Nitrogen 13 mg/dL (8-23); Calcium 9.7 mg/dL (8.5-10.5); Carbon Dioxide 24 mmol/L (22-29); Chloride 104 mmol/L (98-107); Creatine Phosphokinase 27 U/L (39-308); Globulin 1.8 g/dL (1.3-4.6); Glucose 193 mg/dL (65-115); Lipase 20 U/L (13-60); NT Pro B Type Natriuretic Pept 718 pg/mL (0-450); Osmolality Calculated 297 mOsm/kg (285-295); Potassium 4.1 mmol/L (3.5-5.1); Sodium 141 mmol/L (136-145); Total Bilirubin 0.3 mg/dL (0.15-1.2); Total Protein 6.1 g/dL (6.6-8.7)
--- NOTE | 2023-08-20 01:23 | ECG_ITS ---
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 Measurements Intervals [place] Rate: 60 P: 0 MS: 0 QRS: -16 QRSD: 103 T: -9 QT: 419 QTc: 419 Interpretive Statements ATRIAL FIBRILLATION INCOMPLETE RIGHT BUNDLE BRANCH BLOCK [90+ ms QRS DURATION, TERMINAL R IN V1/V2, 40+ ms S IN I/aVL/V4/V5/V6] MINIMAL ST DEPRESSION [0.025+ mV ST DEPRESSION] Compared to ECG 07/16/2022 20:17:16 Incomplete right bundle-branch block now present ST (T wave) deviation now present Myocardial infarct finding no longer present Electronically Signed On 08-20-2023 11:15:53 CDT by Gutierrez Rahman M.D. [id number]
[2023-08-20 02:47] LABS: Troponin 5 2HR 14.84 ng/L (0-15); Troponin 5 2HR Delta -1.16 ABS# (0-10)
[2023-08-20 03:18] VITALS: BP 109/65; PULSE 64; RESP 22; O2SAT 98
--- NOTE | 2023-08-20 04:44 | W.ED.CHESTPA ---
HPI - Chest Pain General: Chief Complaint: Chest Pain Stated Complaint: CP Time Seen by Provider: 08/19/23 23:03 History of Present Illness: 78-year-old male with a history of coronary disease. He presents with chest discomfort that started around 3 PM today. He states that he was not active at the time. Pain across his chest and into his back. Minimal shortness of breath. No diaphoresis or vomiting. Pain is improved now after Nitropaste was placed on the chest. PFSH ED PFSH: Medical History Atherosclerotic heart disease [place] coronary artery w/angina pectoris CAD (coronary artery disease) Chronic episodic atrial fibrillation COPD (chronic obstructive pulmonary disease) Diabetes Hyperlipidemia Hypertension Intestinal angina Pacemaker PUD (peptic ulcer disease) PVD (peripheral vascular disease) Surgical History H/O mastectomy History of prostatectomy Hx of CABG Hx of spinal surgery Family History Other Adopted Social History Smoking and tobacco/nicotine status: former use of tobacco/nicotine Alcohol intake: current Alcohol intake frequency: holidays/special occasions only Substance/Drug Use: never Course Vital Signs: Vital signs: Vital Signs Temperature 98.0 F 08/19/23 22:59 Pulse Rate 64 08/20/23 03:18 Respiratory Rate 22 H 08/20/23 03:18 Blood Pressure 109/65 08/20/23 03:18 Pulse Oximetry 98 08/20/23 03:18 Oxygen Delivery Me thod Room Air 08/19/23 22:59 MDM - Chest Pain Medical Decision Making On reexamination, patient is pain-free. His vitals have been stable. CBC is not remarkable. BMP is not remarkable. EKG shows atrial fibrillation with no acute ST changes, rate in the 60s. 2-hour delta troponin is only 1. Lipase is normal. BNP is below previous indices on this patient. Potassium is 4.1. Discussed observation with the patient. As he is pain-free, with no significant delta, he wishes to go home. He will be allowed discharge to return for any return of his pain. Lab Data 08/19/23 22:35 08/19/23 23:40 Radiology Impressions Chest X-Ray 08/19/23 23:23 IMPRESSION: No acute infiltrate. Laboratory Results WBC 6.58 10^3/uL (3.29-11.43) 08/19/23 22:35 RBC 4.38 10^6/uL (3.85-5.65) 08/19/23 22:35 Hgb 12.80 g/dL (11.27-16.99) 08/19/23 22:35 Hct 38.7 % (37-53) 08/19/23 22:35 MCV 88.4 fl (82-101) 08/19/23 22:35 MCH 29.2 pg (27-33) 08/19/23 22:35 MCHC 33.1 g/dL (30-55) 08/19/23 22:35 RDW 14.6 % (12.1-15.1) 08/19/23 22:35 Plt Count 137 10^3/cmm (157-399) L 08/19/23 22:35 MPV 11.6 fL (7.4-10.4) H 08/19/23 22:35 Neut % (Auto) 58.5 % 08/19/23 22:35 Lymph % (Auto) 28.7 % 08/19/23 22:35 [place] % (Auto) 8.8 % 08/19/23 22:35 Eos % (Auto) 2.6 % 08/19/23 22:35 Baso % (Auto) 0.5 % 08/19/23 22:35 Neut # (Auto) 3.85 10^3/uL (1.8-7.7) 08/19/23 22:35 Lymph # (Auto) 1.9 10^3/uL (0.8-4.8) 08/19/23 22:35 [place] # (Auto) 0.6 10^3/uL (0.2-0.9) 08/19/23 22:35 Eos # (Auto) 0.2 10^3/uL (0.0-0.8) 08/19/23 22:35 Baso # (Auto) 0.0 10^3/uL (0.0-0.1) 08/19/23 22:35 Nucleated RBC % (auto) 0 % 08/19/23 22:35 Nucleated RBCs # 0.0 /100WBC 08/19/23 22:35 PT 17.00 SECONDS (12.1-14.9) H 08/19/23 23:40 INR 1.34 (0.8-1.2) H 08/19/23 23:40 APTT 48.5 SECONDS (23.9-36.7) H 08/19/23 23:40 Sodium 141 mmol/L (136-145) 08/19/23 23:40 Potassium 4.1 mmol/L (3.5-5.1) 08/19/23 23:40 Chloride 104 mmol/L (98-107) 08/19/23 23:40 Carbon Dioxide 24 mmol/L (22-29) 08/19/23 23:40 Anion Gap 17.1 (5-19) 08/19/23 23:40 BUN 13 mg/dL (8-23) 08/19/23 23:40 Creatinine 0.9 mg/dL (0.7-1.2) 08/19/23 23:40 GFR Calculation Not Reportable 08/19/23 23:40 Glucose 193 mg/dL (65-115) H 08/19/23 23:40 Calculated Osmolality 297 mOsm/kg (285-295) H 08/19/23 23:40 Calcium 9.7 mg/dL (8.5-10.5) 08/19/23 23:40 Total Bilirubin 0.3 mg/dL (0.15-1.2) 08/19/23 23:40 AST 18 U/L (0-40) 08/19/23 23:40 ALT 12 U/L (0-41) 08/19/23 23:40 Alkaline Phosphatase 53 U/L (40-130) 08/19/23 23:40 Creatine Kinase 27 U/L (39-308) L 08/19/23 23:40 Troponin T Baseline 16 ng/L (0-15) H 08/19/23 23:40 Troponin T 120 Minute 14.84 ng/L (0-15) 08/20/23 02:07 Delta Troponin T -1.16 ABS# (0-10) L 08/20/23 02:07 NT-Pro-B Natriuret Pep 718 pg/mL (0-450) H 08/19/23 23:40 Total Protein 6.1 g/dL (6.6-8.7) L 08/19/23 23:40 Albumin 4.3 g/dL (3.5-5.2) 08/19/23 23:40 Globulin 1.8 g/dL (1.3-4.6) 08/19/23 23:40 Lipase 20 U/L (13-60) 08/19/23 23:40 All radiology interpretation(s) finalized by discharge Discharge Plan Discharge Patient Disposition: Home Clinical Impression: Chest pain Condition: Stable Prescriptions: No Action pregabalin 75 mg capsule 75 mg PO BID metoprolol tartrate 50 mg tablet 50 mg PO BID@09,21 vitamin V18-kscei acid 500-400 mcg tablet 1 tab PO DAILY@09 ferrous sulfate 325 mg (65 mg iron) tablet 325 mg PO DAILY@21 furosemide 20 mg tablet 20 mg PO DAILY@09 Lantus U-100 Insulin 100 unit/mL solution 50 unit SUBCUT DAILY@21 magnesium 200 mg tablet 400 mg PO BID@09,21 rosuvastatin 20 mg tablet 10 mg PO DAILY@21 Pradaxa 150 mg capsule 150 mg PO BID@09,21 pantoprazole 40 mg tablet,delayed release (DR/EC) 40 mg PO DAILY@09 nitroglycerin [Nitrostat] 0.4 mg tablet, sublingual 0.4 mg SUBLINGUAL Q5M PRN (Reason: Chest Pain) lisinopril 20 mg tablet 10 mg PO DAILY@09 budesonide-formoterol 160-4.5 mcg/actuation HFA aerosol inhaler 2 puff inhalation BID hydrocortisone [Anusol-HC] 2.5 % cream with perineal applicator 1 applic [place] Q6H Qty: 30 0RF multivitamin Tablet 1 tab PO DAILY@0900 albuterol sulfate 2.5 mg /3 mL (0.083 %) Solution For Nebulization 2.5 mg inhalation PRN albuterol sulfate [ProAir HFA] 90 mcg/actuation Hfa Aerosol Inhaler 2 puff INHALATION Q4H PRN (Reason: Shortness Of Breath) Combivent Respimat 20-100 mcg/actuation mist 1 puff INHALATION QID PRN (Reason: Shortness Of Breath) Ozempic 0.25 mg or 0.5 mg(2 mg/1.5 mL) pen injector 1 mg SUBCUT Q7D Rx Instructions: on tue diphenhydramine HCl [Benadryl] 25 mg Capsule 25 mg PO PRN metformin 750 mg Tablet Extended Release 24 Hr 750 mg PO BID@0900,2100 cetirizine 10 mg Tablet 10 mg PO DAILY@0900 montelukast 10 mg tablet 10 mg PO DAILY@0900 fluticasone furoate 27.5 mcg/actuation [place],Suspension 2 spray INTRANASAL DAILY ondansetron 4 mg tablet,disintegrating 4 mg PO Q6H PRN (Reason: nausea and vomiting) Qty: 14 0RF Discharge Orders: Discharge ED (Routine); Ordered 08/20/23 Ordered By: Chino Verdin Referrals: Alesha Hylton MD [Primary Care Provider] - 1-3 days Patient Instructions: Chest Pain (ED) Activity Restrictions/Additional Instructions: Return for any return of discomfort, shortness of breath, fever, other concerning symptoms. 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
== END 2023-08-20 03:19 | disposition home or self-care (01) ==
PROVIDERS: Emergency Provider Emergency Medicine; PCP Family Medicine
DX: R07.9 Chest pain, unspecified (principal); Z79.4 Long term (current) use of insulin; I25.10 Atherosclerotic heart disease of native coronary artery without angina pectoris; E11.9 Type 2 diabetes mellitus without complications; E78.5 Hyperlipidemia, unspecified; I10 Essential (primary) hypertension; Z95.0 Presence of cardiac pacemaker; Z87.891 Personal history of nicotine dependence
CPT/HCPCS: 36415; 71045; 80053; 82550; 83690; 83880; 84484; 85025; 85610; 85730; 93005; 99285

== ENCOUNTER 2023-08-23 02:21 | Emergency (ER) | payer OTHER, SELFPAY ==
[2023-08-23 02:28] VITALS: BP 116/90; PULSE 80; RESP 18; TEMP 36.6; O2SAT 95; BMI 30.9
--- NOTE | 2023-08-23 02:41 | W.ED.ABDPA2 ---
HPI - Abdominal Pain General: Chief Complaint: Abdominal Pain Stated Complaint: abdomen pain, burning with urination Time Seen by Provider: 08/23/23 02:30 Source: patient Mode of arrival: ambulatory Limitations: no limitations History of Present Illness: 78-year-old male states that 8 PM he started having some left lower abdominal pain is also had some slight dysuria. He has had a urinary tract infection in the past states his pain is roughly a 4 out of 10 denies any worsening proving factors denies any vomiting or diarrhea. Associated Symptoms: Denies chills, diarrhea, dysuria, fever(s), nausea and vomiting Review of Systems Const: Denies: fever(s), chills, body aches or change in appetite ENMT: Denies: throat pain or dental pain Card: Denies: chest pain Resp: Denies: dyspnea GI: Reports: abdominal pain; Denies: nausea, vomiting or diarrhea : Denies: dysuria Musc: Denies: neck pain or back pain Skin/Breast: Denies: rash Neuro: Denies: headache(s) PFSH ED PFSH: Medical History Atherosclerotic heart disease [place] coronary artery w/angina pectoris CAD (coronary artery disease) Chronic episodic atrial fibrillation COPD (chronic obstructive pulmonary disease) Diabetes Hyperlipidemia Hypertension Intestinal angina Pacemaker PUD (peptic ulcer disease) PVD (peripheral vascular disease) Surgical History H/O mastectomy History of prostatectomy Hx of CABG Hx of spinal surgery Family History Other Adopted Social History Smoking and tobacco/nicotine status: former use of tobacco/nicotine Alcohol intake: current Alcohol intake frequency: holidays/special occasions only Substance/Drug Use: never Physical Exam Const: COMMON NORMALS: no acute distress, patient oriented x3 and healthy appearing HENMT: COMMON NORMALS: normocephalic and atraumatic HEAD & SCALP: normocephalic and atraumatic Eye: COMMON NORMALS: Equal, round and reactive pupils present and EOMs intact bilaterally PUPIL: Yes Equal, round and reactive pupils present Neck/C-Spine: COMMON NORMALS: full ROM and supple Chest: COMMONS NORMALS: normal inspection of the chest and normal palpation of entire chest wall Resp: COMMON NORMALS: normal respiratory effort, No retractions, No use of accessory muscles and clear to auscultation bilaterally AUSCULTATION: clear to auscultation bilaterally Cardio: COMMON NORMALS: regular rate, regular rhythm and No murmurs present (Cardio) RATE: regular rate RHYTHM: regular rhythm GI: COMMON NORMALS: Normal to inspection, nondistended, normoactive bowel sounds present, Soft to palpation, non-tender and no masses PALPATION: Yes Soft to palpation Extremity: COMMON NORMALS: normal to inspection and full ROM Neuro: COMMON NORMALS: patient oriented x3, moves all extremities and no focal motor deficits Psych: COMMON NORMALS: mental status grossly normal, Normal thought process present and cooperative THOUGHT PROCESS: Normal thought process present Skin: COMMON NORMALS: no rashes or lesions noted and no wounds GENERAL SKIN EXAM: no rashes or lesions noted Course Vital Signs: Vital signs: Vital Signs Temperature 97.8 F 08/23/23 02:28 Pulse Rate 80 08/23/23 02:28 Respiratory Rate 18 08/23/23 03:20 Blood Pressure 116/90 08/23/23 02:28 Pulse Oximetry 95 08/23/23 02:28 Oxygen Delivery Me thod Room Air 08/23/23 02:28 MDM - Abdominal Pain Medical Decision Making Patient presents here with abdominal pain is since resolved his abdominal exam here is benign with no tenderness urinalysis is normal blood works normal no signs of acute surgical abdomen we will place him on [facility] he is stable for discharge he is to follow-up with his PCP in 3 to 5 days and return if worsening he understands agrees to plan Medical Records I reviewed the patient's medical records. Lab Data I reviewed the patient's lab results. 08/23/23 03:15 08/23/23 03:15 Labs/Radiology: Laboratory Results WBC 6.82 10^3/uL (3.29-11.43) 08/23/23 03:15 RBC 4.54 10^6/uL (3.85-5.65) 08/23/23 03:15 Hgb 13.40 g/dL (11.27-16.99) 08/23/23 03:15 Hct 44.5 % (37-53) 08/23/23 03:15 MCV 98.0 fl (82-101) 08/23/23 03:15 MCH 29.5 pg (27-33) 08/23/23 03:15 MCHC 30.1 g/dL (30-55) 08/23/23 03:15 RDW 14.7 % (12.1-15.1) 08/23/23 03:15 Plt Count 153 10^3/cmm (157-399) L 08/23/23 03:15 MPV 11.0 fL (7.4-10.4) H 08/23/23 03:15 Neut % (Auto) 59.4 % 08/23/23 03:15 Lymph % (Auto) 23.9 % 08/23/23 03:15 [place] % (Auto) 9.8 % 08/23/23 03:15 Eos % (Auto) 5.3 % 08/23/23 03:15 Baso % (Auto) 0.6 % 08/23/23 03:15 Neut # (Auto) 4.05 10^3/uL (1.8-7.7) 08/23/23 03:15 Lymph # (Auto) 1.6 10^3/uL (0.8-4.8) 08/23/23 03:15 [place] # (Auto) 0.7 10^3/uL (0.2-0.9) 08/23/23 03:15 Eos # (Auto) 0.4 10^3/uL (0.0-0.8) 08/23/23 03:15 Baso # (Auto) 0.0 10^3/uL (0.0-0.1) 08/23/23 03:15 Nucleated RBC % (auto) 0 % 08/23/23 03:15 Nucleated RBCs # 0.0 /100WBC 08/23/23 03:15 Sodium 134 mmol/L (136-145) L 08/23/23 03:15 Potassium 4.5 mmol/L (3.5-5.1) 08/23/23 03:15 Chloride 100 mmol/L (98-107) 08/23/23 03:15 Carbon Dioxide 22 mmol/L (22-29) 08/23/23 03:15 Anion Gap 16.5 (5-19) 08/23/23 03:15 BUN 15 mg/dL (8-23) 08/23/23 03:15 Creatinine 0.8 mg/dL (0.7-1.2) 08/23/23 03:15 GFR Calculation Not Reportable 08/23/23 03:15 Glucose 256 mg/dL (65-115) H 08/23/23 03:15 Calculated Osmolality 288 mOsm/kg (285-295) 08/23/23 03:15 Calcium 9.0 mg/dL (8.5-10.5) 08/23/23 03:15 Total Bilirubin 0.3 mg/dL (0.15-1.2) 08/23/23 03:15 AST 17 U/L (0-40) 08/23/23 03:15 ALT 13 U/L (0-41) 08/23/23 03:15 Alkaline Phosphatase 51 U/L (40-130) 08/23/23 03:15 Total Protein 6.6 g/dL (6.6-8.7) 08/23/23 03:15 Albumin 3.9 g/dL (3.5-5.2) 08/23/23 03:15 Globulin 2.7 g/dL (1.3-4.6) 08/23/23 03:15 Lipase 19 U/L (13-60) 08/23/23 03:15 Urine Color Yellow (Yellow) 08/23/23 02:54 Urine Appearance Clear (CLEAR) 08/23/23 02:54 Urine pH 5 (5-7) 08/23/23 02:54 Ur Specific [place] 1.015 (1.005-1.030) 08/23/23 02:54 Urine Protein Neg (Negative) 08/23/23 02:54 Urine Glucose (UA) 4+ (Normal) H 08/23/23 02:54 Urine Ketones Negative (Negative) 08/23/23 02:54 Urine Blood Trace (Negative) H 08/23/23 02:54 Urine Nitrate Negative (Negative) 08/23/23 02:54 Urine Bilirubin Neg (Negative) 08/23/23 02:54 Urine Urobilinogen Norm mg/dL (Negative) 08/23/23 02:54 Ur Leukocyte Esterase Negative (Negative) 08/23/23 02:54 Urine RBC 0-4 /hpf (0-2) H 08/23/23 02:54 Urine WBC None /hpf (0-5) 08/23/23 02:54 Ur Squamous Epith Cells None /hpf (0-5) 08/23/23 02:54 Amorphous Sediment Not Reportable 08/23/23 02:54 Urine Bacteria None /hpf (NONE) 08/23/23 02:54 No radiology studies performed this visit Discharge Plan Discharge Patient Disposition: Home Clinical Impression: Abdominal pain Condition: Stable Prescriptions: New dicyclomine 20 mg tablet 20 mg PO BID PRN (Reason: abdominal pain) Qty: 20 0RF No Action pregabalin 75 mg capsule 75 mg PO BID metoprolol tartrate 50 mg tablet 50 mg PO BID@09,21 vitamin W97-shjsz acid 500-400 mcg tablet 1 tab PO DAILY@09 ferrous sulfate 325 mg (65 mg iron) tablet 325 mg PO DAILY@21 furosemide 20 mg tablet 20 mg PO DAILY@09 Lantus U-100 Insulin 100 unit/mL solution 50 unit SUBCUT DAILY@21 magnesium 200 mg tablet 400 mg PO BID@09,21 rosuvastatin 20 mg tablet 10 mg PO DAILY@21 Pradaxa 150 mg capsule 150 mg PO BID@09,21 pantoprazole 40 mg tablet,delayed release (DR/EC) 40 mg PO DAILY@09 nitroglycerin [Nitrostat] 0.4 mg tablet, sublingual 0.4 mg SUBLINGUAL Q5M PRN (Reason: Chest Pain) lisinopril 20 mg tablet 10 mg PO DAILY@09 budesonide-formoterol 160-4.5 mcg/actuation HFA aerosol inhaler 2 puff inhalation BID hydrocortisone [Anusol-HC] 2.5 % cream with perineal applicator 1 applic [place] Q6H Qty: 30 0RF multivitamin Tablet 1 tab PO DAILY@0900 albuterol sulfate 2.5 mg /3 mL (0.083 %) Solution For Nebulization 2.5 mg inhalation PRN albuterol sulfate [ProAir HFA] 90 mcg/actuation Hfa Aerosol Inhaler 2 puff INHALATION Q4H PRN (Reason: Shortness Of Breath) Combivent Respimat 20-100 mcg/actuation mist 1 puff INHALATION QID PRN (Reason: Shortness Of Breath) Ozempic 0.25 mg or 0.5 mg(2 mg/1.5 mL) pen injector 1 mg SUBCUT Q7D Rx Instructions: on tue diphenhydramine HCl [Benadryl] 25 mg Capsule 25 mg PO PRN metformin 750 mg Tablet Extended Release 24 Hr 750 mg PO BID@0900,2100 cetirizine 10 mg Tablet 10 mg PO DAILY@0900 montelukast 10 mg tablet 10 mg PO DAILY@0900 fluticasone furoate 27.5 mcg/actuation [place],Suspension 2 spray INTRANASAL DAILY ondansetron 4 mg tablet,disintegrating 4 mg PO Q6H PRN (Reason: nausea and vomiting) Qty: 14 0RF Discharge Orders: Discharge ED (Routine); Ordered 08/23/23 Ordered By: Yahaira Gary Referrals: Alesha Hylton MD [Primary Care Provider] - 1-3 days Discharge Diet: Advance as tolerated Discharge Activity: Resume usual activity Patient Instructions: Abdominal Pain (ED) Coding Level of Care Code ED Watch 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
[2023-08-23 03:17] LABS: Add Urine Culture? No; Add Urine Microscopic? YES; Bilirubin Urine Neg (Negative); Blood Urine Trace (Negative); Glucose Urine UA 4+ (Normal); Ketones Urine Negative (Negative); Leukocyte Esterase Urine Negative (Negative); Nitrate Urine Negative (Negative); Protein Urine Neg (Negative); RBC Urine 0-4 /hpf (0-2); Specific Gravity, Urine 1.015 (1.005-1.030); Urine Appearance Clear (CLEAR); Urine Color Yellow (Yellow); Urobilinogen Urine Norm (Negative); pH Urine 5 (5-7)
[2023-08-23 03:20] VITALS: RESP 18
[2023-08-23 03:20] LABS: Basophils % 0.6 %; Eosinophils # 0.4 10^3/uL (0.0-0.8); Eosinophils % 5.3 %; Hematocrit 44.5 % (37-53); Lymphocytes # 1.6 10^3/uL (0.8-4.8); Lymphocytes % 23.9 %; Mean Corpuscular HGB Conc 30.1 g/dL (30-55); Mean Corpuscular Hemoglobin 29.5 pg (27-33); Monocytes # 0.7 10^3/uL (0.2-0.9); Monocytes % 9.8 %; Neutrophils # 4.05 10^3/uL (1.8-7.7); Neutrophils % 59.4 %; Nucleated Red Blood Cells % 0 %; Platelet Count 153 10^3/cmm (157-399); Red Blood Count 4.54 10^6/uL (3.85-5.65); Red Cell Distribution Width 14.7 % (12.1-15.1); White Blood Count 6.82 10^3/uL (3.29-11.43)
[2023-08-23] MEDS: morphine 4 mg/mL SDV 1 mL IVP (03:20)
[2023-08-23] MEDS: ondansetron 2 mg/ML SDV 2 mL 4 MG IVP (03:20)
[2023-08-23 03:39] LABS: Alanine Aminotransferase 13 U/L (0-41); Albumin Level 3.9 g/dL (3.5-5.2); Alkaline Phosphatase 51 U/L (40-130); Anion Gap 16.5 (5-19); Aspartate Amino Transferase 17 U/L (0-40); Blood Urea Nitrogen 15 mg/dL (8-23); Carbon Dioxide 22 mmol/L (22-29); Chloride 100 mmol/L (98-107); Globulin 2.7 g/dL (1.3-4.6); Glucose 256 mg/dL (65-115); Lipase 19 U/L (13-60); Osmolality Calculated 288 mOsm/kg (285-295); Potassium 4.5 mmol/L (3.5-5.1); Sodium 134 mmol/L (136-145); Total Bilirubin 0.3 mg/dL (0.15-1.2); Total Protein 6.6 g/dL (6.6-8.7)
[2023-08-23 04:08] VITALS: BP 116/90; PULSE 76; RESP 18; O2SAT 96
--- NOTE | 2023-08-23 12:08 | PC.SOCIAL ---
[facility] Notes to [facility] at this time.
== END 2023-08-23 04:13 | disposition home or self-care (01) ==
PROVIDERS: Emergency Provider Emergency Medicine; PCP Family Medicine
DX: R10.32 Left lower quadrant pain (principal); Z79.4 Long term (current) use of insulin; Z79.84 Long term (current) use of oral hypoglycemic drugs; I25.10 Atherosclerotic heart disease of native coronary artery without angina pectoris; J44.9 Chronic obstructive pulmonary disease, unspecified; E11.9 Type 2 diabetes mellitus without complications; E78.5 Hyperlipidemia, unspecified; I10 Essential (primary) hypertension; Z95.0 Presence of cardiac pacemaker; Z95.1 Presence of aortocoronary bypass graft; Z87.891 Personal history of nicotine dependence
CPT/HCPCS: 80053; 81001; 83690; 85025; 99284; J2270; J2405

== ENCOUNTER → 2023-08-31 11:09 | Outpatient (BNVA) | payer OTHER, SELFPAY | PROVIDERS: PCP Family Medicine; Visit Provider Internal Medicine Cardiovascular Disease | DX: I35.0 Nonrheumatic aortic (valve) stenosis (principal); I73.9 Peripheral vascular disease, unspecified; I25.10 Atherosclerotic heart disease of native coronary artery without angina pectoris; Z95.1 Presence of aortocoronary bypass graft; I48.20 Chronic atrial fibrillation, unspecified; I10 Essential (primary) hypertension; Z95.0 Presence of cardiac pacemaker; E78.2 Mixed hyperlipidemia; Z87.891 Personal history of nicotine dependence | CPT/HCPCS: 99214 ==

== ENCOUNTER 2023-09-19 06:05 | Outpatient (CLI) | payer OTHER, SELFPAY ==
--- NOTE | 2023-09-19 | US_ITS ---
WS: [id number] RIGHT UPPER QUADRANT ULTRASOUND HISTORY: RUQ PAIN COMPARISON: 11/15/2011 Liver: 14.2 cm in length. Normal size liver and echogenicity. No bile duct dilatation or mass. Portal Vein: Normal hepatopetal flow with monophasic waveform. Gallbladder: Normally distended gallbladder with no stones or wall thickening. CBD: 0.3 cm Pancreas: Portions of the head and tail are obscured. The body is negative. Right kidney: 9.2 cm in length. Normal size and echogenicity. No hydronephrosis or mass. Aorta and IVC: Unremarkable abdominal aorta and IVC. No ascites. IMPRESSION: 1. Normal gallbladder. 2. No bile duct dilatation. 3. Obscured pancreas.
== END 2023-09-19 06:06 | disposition home or self-care (01) ==
LOC: RAD 06:06
PROVIDERS: PCP Family Medicine; Visit Provider Nurse Practitioner
DX: R10.11 Right upper quadrant pain (principal)
CPT/HCPCS: 76705

== ENCOUNTER 2023-09-26 00:59 | Emergency (ER) | payer OTHER, SELFPAY ==
[2023-09-26 01:02] VITALS: BP 131/82; PULSE 69; RESP 16; TEMP 36.7; O2SAT 96; BMI 31.6
[2023-09-26] MEDS: ondansetron 2 mg/ML SDV 2 mL 4 MG IVP (01:56)
[2023-09-26 01:57] VITALS: RESP 17
[2023-09-26] MEDS: morphine 4 mg/mL SDV 1 mL IVP (01:57)
[2023-09-26] MEDS: lidocaine 2% viscous 15 ML, aluminum-mag hydrox-simethicon 30 ML, sucralfate oral liq 1 GM PO (01:59)
[2023-09-26 02:06] VITALS: BP 130/77; PULSE 63; O2SAT 95
[2023-09-26 02:16] LABS: Basophils % 0.4 %; Eosinophils # 0.2 10^3/uL (0.0-0.8); Eosinophils % 1.9 %; Hematocrit 38.9 % (37-53); Lymphocytes # 1.5 10^3/uL (0.8-4.8); Lymphocytes % 16.3 %; Mean Corpuscular HGB Conc 32.9 g/dL (30-55); Mean Corpuscular Hemoglobin 30.1 pg (27-33); Mean Corpuscular Volume 91.5 fl (82-101); Mean Platelet Volume 10.9 fL (7.4-10.4); Monocytes # 0.8 10^3/uL (0.2-0.9); Monocytes % 8.4 %; Neutrophils # 6.83 10^3/uL (1.8-7.7); Neutrophils % 72.7 %; Nucleated Red Blood Cells % 0 %; Platelet Count 137 10^3/cmm (157-399); Red Blood Count 4.25 10^6/uL (3.85-5.65); Red Cell Distribution Width 14.2 % (12.1-15.1)
[2023-09-26 02:30] VITALS: PULSE 67; RESP 17; O2SAT 97
[2023-09-26 02:36] LABS: Alanine Aminotransferase 8 U/L (0-41); Albumin Level 4.2 g/dL (3.5-5.2); Alkaline Phosphatase 52 U/L (40-130); Anion Gap 15.5 (5-19); Aspartate Amino Transferase 16 U/L (0-40); Blood Urea Nitrogen 13 mg/dL (8-23); C Reactive Protein 4.6 mg/L (0.0-4.9); Calcium 9.3 mg/dL (8.5-10.5); Carbon Dioxide 25 mmol/L (22-29); Chloride 102 mmol/L (98-107); Globulin 2.5 g/dL (1.3-4.6); Glucose 170 mg/dL (65-115); Lipase 15 U/L (13-60); Osmolality Calculated 290 mOsm/kg (285-295); Potassium 4.5 mmol/L (3.5-5.1); Sodium 138 mmol/L (136-145); Total Bilirubin 0.5 mg/dL (0.15-1.2); Total Protein 6.7 g/dL (6.6-8.7)
[2023-09-26 02:55] LABS: Add Urine Culture? No; Add Urine Microscopic? YES; Amorphous Sediment Urine TRACE /hpf; Bilirubin Urine Neg (Negative); Blood Urine 2+ (Negative); Glucose Urine UA Norm (Normal); Ketones Urine 1+ (Negative); Leukocyte Esterase Urine Negative (Negative); Nitrate Urine Negative (Negative); Protein Urine Neg (Negative); RBC Urine RARE /hpf (0-2); Specific Gravity, Urine 1.015 (1.005-1.030); Urine Appearance Clear (CLEAR); Urine Color Yellow (Yellow); Urobilinogen Urine Neg (Negative); pH Urine 5 (5-7)
[2023-09-26 03:00] VITALS: BP 129/61; PULSE 57; O2SAT 94
[2023-09-26 03:35] VITALS: BP 125/84; PULSE 61; O2SAT 95
[2023-09-26 03:53] LABS: Lactic Sepsis W/Reflex 1.7 mmol/L (0.5-2.2)
--- NOTE | 2023-09-26 04:33 | ED_ITS ---
HPI - Abdominal Pain 2 General: Chief Complaint: Abdominal Pain Stated Complaint: abd pain, n/v Time Seen by Provider: 09/26/23 01:05 History of Present Illness: 78-year-old male who presents with epiga stric pain radiating into his back. He has had similar pain for about 3 weeks. He has been seen here prior, and had imaging that did not reveal a cause. He had a gallbladder ultrasound recently as an outpatient as well. Seems to be worse after eating. No fever. No vomiting. Associated Symptoms: Reports nausea; Denies chills, fever(s) and vomiting Review of Systems 2 Const: Denies: fever(s) or chills Eyes: Denies: change in vision ENMT: Denies: throat pain or uvular edema Card: Denies: chest pain or palpitations GI: Reports: abdominal pain and nausea; Denies: vomiting PFSH ED 2 PFSH: Medical History Atherosclerotic heart disease [place] coronary artery w/angina pectoris CAD (coronary artery disease) Chronic episodic atrial fibrillation COPD (chronic obstructive pulmonary disease) Diabetes Hyperlipidemia Hypertension Intestinal angina Pacemaker PUD (peptic ulcer disease) PVD (peripheral vascular disease) Surgical History Hx of spinal surgery Hx of CABG H/O mastectomy History of prostatectomy Family History Other Adopted Social History Smoking and tobacco/nicotine status: former use of tobacco/nicotine Alcohol intake: current Alcohol intake frequency: holidays/special occasions only Substance/Drug Use: never Physical Exam 2 Const: COMMON NORMALS: no acute distress GENERAL APPEARANCE: cooperative; not ill appearing and not frail appearing HENMT: COMMON NORMALS: normocephalic, atraumatic and Normal external nose present HEAD & SCALP: normocephalic and atraumatic FACE & SINUS: normal facial exam and face symmetric NOSE: Normal external nose present THROAT: no uvular edema Eye: COMMON NORMALS: Equal, round and reactive pupils present and EOMs intact bilaterally PUPIL: Yes Equal, round and reactive pupils present Neck/C-Spine: GENERAL: Yes trachea midline Chest: CHEST: Yes Symmetrical chest wall rise Resp: COMMON NORMALS: normal respiratory effort, No retractions, No use of accessory muscles and clear to auscultation bilaterally AUSCULTATION: clear to auscultation bilaterally Cardio: COMMON NORMALS: regular rate and regular rhythm RATE: regular rate RHYTHM: regular rhythm GI: COMMON NORMALS: Normal to inspection, nondistended, normoactive bowel sounds present PALPATION: Yes Tenderness to palpation present (GI) Extremity: COMMON NORMALS: no pedal edema Neuro: REJI COMA SCALE: document GCS findings [place] coma scale eye opening: Spontaneous [place] coma scale verbal response: Orientated [place] coma scale motor response: Obey commands [place] coma scale total score: 15 S ENSORY EXAM: Yes extremities (intact) Psych: COMMON NORMALS: speech normal SPEECH: Yes normal speech Skin: COMMON NORMALS: no rashes or lesions noted GENERAL SKIN EXAM: no rashes or lesions noted Course 2 Vital Signs: Vital signs: Vital Signs Temperature 98.0 F 09/26/23 01:02 Pulse Rate 61 09/26/23 03:35 Respiratory Rate 17 09/26/23 02:30 Blood Pressure 125/84 09/26/23 03:35 Pulse Oximetry 95 09/26/23 03:35 Oxygen Delivery Me thod Room Air 09/26/23 01:02 MDM - Abdominal Pain Medical Decision Making Patient was given morphine Zofran and GI cocktail. He states that this is the first time he has been pain-free in 3 weeks. Laboratory testing is benign. CT imaging was performed last week and was not remarkable. He will be treated for gastritis. Return for worsening symptoms. Lab Data 09/26/23 02:01 09/26/23 02:01 Labs/Radiology: Laboratory Results WBC 9.40 10^3/uL (3.29-11.43) 09/26/23 02:01 RBC 4.25 10^6/uL (3.85-5.65) 09/26/23 02:01 Hgb 12.80 g/dL (11.27-16.99) 09/26/23 02:01 Hct 38.9 % (37-53) 09/26/23 02:01 MCV 91.5 fl (82-101) 09/26/23 02:01 MCH 30.1 pg (27-33) 09/26/23 02:01 MCHC 32.9 g/dL (30-55) 09/26/23 02:01 RDW 14.2 % (12.1-15.1) 09/26/23 02:01 Plt Count 137 10^3/cmm (157-399) L 09/26/23 02:01 MPV 10.9 fL (7.4-10.4) H 09/26/23 02:01 Neut % (Auto) 72.7 % 09/26/23 02:01 Lymph % (Auto) 16.3 % 09/26/23 02:01 [place] % (Auto) 8.4 % 09/26/23 02:01 Eos % (Auto) 1.9 % 09/26/23 02:01 Baso % (Auto) 0.4 % 09/26/23 02:01 Neut # (Auto) 6.83 10^3/uL (1.8-7.7) 09/26/23 02:01 Lymph # (Auto) 1.5 10^3/uL (0.8-4.8) 09/26/23 02:01 [place] # (Auto) 0.8 10^3/uL (0.2-0.9) 09/26/23 02:01 Eos # (Auto) 0.2 10^3/uL (0.0-0.8) 09/26/23 02:01 Baso # (Auto) 0.0 10^3/uL (0.0-0.1) 09/26/23 02:01 Nucleated RBC % (auto) 0 % 09/26/23 02:01 Nucleated RBCs # 0.0 /100WBC 09/26/23 02:01 Sodium 138 mmol/L (136-145) 09/26/23 02:01 Potassium 4.5 mmol/L (3.5-5.1) 09/26/23 02:01 Chloride 102 mmol/L (98-107) 09/26/23 02:01 Carbon Dioxide 25 mmol/L (22-29) 09/26/23 02:01 Anion Gap 15.5 (5-19) 09/26/23 02:01 BUN 13 mg/dL (8-23) 09/26/23 02:01 Creatinine 0.9 mg/dL (0.7-1.2) 09/26/23 02:01 GFR Calculation Not Reportable 09/26/23 02:01 Glucose 170 mg/dL (65-115) H 09/26/23 02:01 Calculated Osmolality 290 mOsm/kg (285-295) 09/26/23 02:01 Lactic Acid 1.7 mmol/L (0.5-2.2) 09/26/23 03:15 Calcium 9.3 mg/dL (8.5-10.5) 09/26/23 02:01 Total Bilirubin 0.5 mg/dL (0.15-1.2) 09/26/23 02:01 AST 16 U/L (0-40) 09/26/23 02:01 ALT 8 U/L (0-41) 09/26/23 02:01 Alkaline Phosphatase 52 U/L (40-130) 09/26/23 02:01 C-Reactive Protein 4.6 mg/L (0.0-4.9) 09/26/23 02:01 Total Protein 6.7 g/dL (6.6-8.7) 09/26/23 02:01 Albumin 4.2 g/dL (3.5-5.2) 09/26/23 02:01 Globulin 2.5 g/dL (1.3-4.6) 09/26/23 02:01 Lipase 15 U/L (13-60) 09/26/23 02:01 Urine Color Yellow (Yellow) 09/26/23 02:44 Urine Appearance Clear (CLEAR) 09/26/23 02:44 Urine pH 5 (5-7) 09/26/23 02:44 Ur Specific [place] 1.015 (1.005-1.030) 09/26/23 02:44 Urine Protein Neg (Negative) 09/26/23 02:44 Urine Glucose (UA) Norm (Normal) 09/26/23 02:44 Urine Ketones 1+ (Negative) H 09/26/23 02:44 Urine Blood 2+ (Negative) H 09/26/23 02:44 Urine Nitrate Negative (Negative) 09/26/23 02:44 Urine Bilirubin Neg (Negative) 09/26/23 02:44 Urine Urobilinogen Neg mg/dL (Negative) 09/26/23 02:44 Ur Leukocyte Esterase Negative (Negative) 09/26/23 02:44 Urine RBC Rare /hpf (0-2) 09/26/23 02:44 Urine WBC None /hpf (0-5) 09/26/23 02:44 Ur Squamous Epith Cells None /hpf (0-5) 09/26/23 02:44 Amorphous Sediment Trace /hpf 09/26/23 02:44 Urine Bacteria None /hpf (NONE) 09/26/23 02:44 No radiology studies performed this visit Discharge Plan Discharge Patient Disposition: Home Clinical Impression: Gastritis Condition: Stable Prescriptions: New sucralfate 1 gram tablet 1 g PO TID 28 Days Qty: 84 0RF Continued pantoprazole 40 mg tablet,delayed release (DR/EC) 40 mg PO DAILY@09 Qty: 30 0RF ondansetron 4 mg tablet,disintegrating 4 mg PO Q6H PRN (Reason: nausea and vomiting) Qty: 14 0RF No Action pregabalin 75 mg capsule 75 mg PO BID metoprolol tartrate 50 mg tablet 50 mg PO BID@09,21 vitamin W42-pwofz acid 500-400 mcg tablet 1 tab PO DAILY@09 ferrous sulfate 325 mg (65 mg iron) tablet 325 mg PO DAILY@21 furosemide 20 mg tablet 20 mg PO DAILY@09 Lantus U-100 Insulin 100 unit/mL solution 50 unit SUBCUT DAILY@21 magnesium 200 mg tablet 400 mg PO BID@09,21 rosuvastatin 20 mg tablet 10 mg PO DAILY@21 Pradaxa 150 mg capsule 150 mg PO BID@09,21 nitroglycerin [Nitrostat] 0.4 mg tablet, sublingual 0.4 mg SUBLINGUAL Q5M PRN (Reason: Chest Pain) lisinopril 20 mg tablet 10 mg PO DAILY@09 budesonide-formoterol 160-4.5 mcg/actuation HFA aerosol inhaler 2 puff inhalation BID hydrocortisone [Anusol-HC] 2.5 % cream with perineal applicator 1 applic [place] Q6H Qty: 30 0RF multivitamin Tablet 1 tab PO DAILY@0900 albuterol sulfate 2.5 mg /3 mL (0.083 %) Solution For Nebulization 2.5 mg inhalation PRN albuterol sulfate [ProAir HFA] 90 mcg/actuation Hfa Aerosol Inhaler 2 puff INHALATION Q4H PRN (Reason: Shortness Of Breath) Combivent Respimat 20-100 mcg/actuation mist 1 puff INHALATION QID PRN (Reason: Shortness Of Breath) Ozempic 0.25 mg or 0.5 mg(2 mg/1.5 mL) pen injector 1 mg SUBCUT Q7D Rx Instructions: on tue diphenhydramine HCl [Benadryl] 25 mg Capsule 25 mg PO PRN metformin 750 mg Tablet Extended Release 24 Hr 750 mg PO BID@0900,2100 cetirizine 10 mg Tablet 10 mg PO DAILY@0900 montelukast 10 mg tablet 10 mg PO DAILY@0900 fluticasone furoate 27.5 mcg/actuation [place],Suspension 2 spray INTRANASAL DAILY dicyclomine 20 mg tablet 20 mg PO BID PRN (Reason: abdominal pain) Qty: 20 0RF Discharge Orders: Discharge ED (Routine); Ordered 09/26/23 Ordered By: Chino Verdin Referrals: Alesha Hylton MD [Primary Care Provider] - 1-3 days Patient Instructions: Gastritis (ED), Opioid Safety, Pain Management Activity Restrictions/Additional Instructions: Take nausea medication as needed. Other medications as directed. Return for fever, vomiting liquids or medications, worsening pain despite treatment, other concerning symptoms. Follow-up with your doctor this week. Coding Level of Care Code ED Rate Clerk Passenger for Jenna Hooker
== END 2023-09-26 03:37 | disposition home or self-care (01) ==
PROVIDERS: Emergency Provider Emergency Medicine; PCP Family Medicine
DX: K29.70 Gastritis, unspecified, without bleeding (principal); Z79.84 Long term (current) use of oral hypoglycemic drugs; Z79.4 Long term (current) use of insulin; Z87.891 Personal history of nicotine dependence; I25.10 Atherosclerotic heart disease of native coronary artery without angina pectoris; J44.9 Chronic obstructive pulmonary disease, unspecified; E11.9 Type 2 diabetes mellitus without complications; E78.5 Hyperlipidemia, unspecified; I10 Essential (primary) hypertension; Z95.0 Presence of cardiac pacemaker; Z95.1 Presence of aortocoronary bypass graft
CPT/HCPCS: 80053; 81001; 83605; 83690; 85025; 86140; 96374; 96375; 99284; J2270; J2405

== ENCOUNTER 2023-09-29 05:40 | Outpatient (CLI) | payer OTHER, SELFPAY ==
[2023-09-29] VITALS (24 sets, daily range): BP systolic 116–140; BP diastolic 61–100; PULSE 54–79; RESP 3–31; O2SAT 78–100; BMI 32.1
[2023-09-29] MEDS: aspirin 325 mg Tablet PO (06:15)
[2023-09-29] MEDS: diphenhydrAMINE 50 mg Capsule PO (06:15)
--- NOTE | 2023-09-29 06:45 | XACV_ITS ---
Exam Room: 2 Ht: 163 cm Wt: 85 kg BSA: 1.99 m2 Gender: Male : 1945 Any Known Allergies: Other Exam Priority: Routine Indication(s): - Aortic stenosis by Echo Procedure(s): Procedure Description: Diagnostic procedure Jorge GARCIA; Diagnostic Cath Status: Elective Diagnostic Findings * Left main has mild disease. * The left anterior descending artery is a medium caliber vessel which was found to have mild diffuse intimal irregularities * with no significant stenotic lesions. The artery gives of a high diagonal branch and was found to have no significant stenotic lesions.. * The left circumflex artery appears to be totally occluded at the ostium. * The right coronary artery also appears to be totally occluded at the ostium. Heavy calcification was noted in the artery. * The saphenous venous graft to the obtuse marginal branch was found to be widely patent with no significant stenotic lesions. * The saphenous venous graft to the RCA also was found to be widely patent. The PDA and the PLV branches are found to have mild diffuse disease. * The ESPANA to the LAD was noted engaged. In the previous angiograms, the artery was found to be atretic and subtotally occluded. Conclusions 1. This 78-year-old white male with a history of atherosclerotic heart disease, status post coronary bypass surgery, presenting with increasing fatigue and some dyspnea on exertion. He was found to have a paradoxical low-flow low gradient aortic valve stenosis. To further evaluate the coronary arteries as well as the aortic valve stenosis, a left and right heart catheterization with a left and right coronary angiogram was recommended. The patient underwent the procedure today. The findings are as follows. 2. The left main was found to have minimal intimal regularities. The left circumflex artery was flush occluded at the ostium. The left artery descending artery was found to have mild diffuse intimal irregularities. Right coronary artery also was found to be flush occluded at the ostium with heavy calcification. The ESPANA to the LAD was found to be atretic with subtotal occlusion. The venous graft to the obtuse marginal was found to be patent with no significant stenotic lesions. The venous graft to distal RCA also was found to be widely patent. The PDA and the PLV branches are found to have mild diffuse intimal irregularities. The right heart catheterization revealed a right atrial pressure 13, artery pressure of 47/1, PA pressure 45/19 with a mean of 28. Pulmonary capillary wedge pressure was 18. LVEDP was 18. Cardiac output by Tonio's was 4 with an index of 2.0. The mean aortic valve gradient was 19 mmHg. The calculated valve area was 1.0 cm2 with an index of 0.55. Diagnostic RX Recommendation: medical therapy and/or counseling Pressures Phase:Rest AO : 105 / 53 ( 74 ) @ 8:08:00 AM 112 / 37 ( 69 ) @ 8:08:00 AM 119 / 54 ( 77 ) @ 8:08:00 AM LV : 122 / -3 / 18 @ 8:08:00 AM 122 / -5 / 17 @ 8:08:00 AM RV : 47 / 1 / 14 @ 8:04:00 AM PA : 45 / 19 ( 28 ) @ 8:02:00 AM RA : a wave = 15 v wave = 17 mean = 13 @ 8:05:00 AM PCW : a wave = 16 v wave = 24 mean = 18 @ 8:01:00 AM O2 Content Phase:Rest PA : O2 Content O2: 61.1 @ 8:08:00 AM Saturations Phase:Rest AO : 92 @ 8:08:00 AM RA : 59 @ 8:08:00 AM RV : 61 @ 8:08:00 AM PA : 61 @ 8:08:00 AM Cardiac Output Phase:Rest Tonio : 4 @ 8:33:20 AM Tonio Cardiac Index: 2 @ 8:33:20 AM Flow Phase:Rest Qp : 4 @ 8:33:20 AM Qs : 4 @ 8:33:20 AM Valves Phase:DefaultPhase AV : 13.0 @ 8:33:20 AM 13.0 @ 8:33:20 AM AV Mean Gradient: 17.0 @ 8:33:20 AM 17.0 @ 8:33:20 AM AV Flow: 190 @ 8:33:20 AM AV Area: 1.0 @ 8:33:20 AM AV Area Index: 0.55 @ 8:33:20 AM Clinical Evaluation EBL: 5mL-10mL Procedural Details Procedure Consent Obtained. Pre-Procedure Time Out. Identified patient by full name and date of as verbalized by the patient/guarantor. Does the consent match the physician's order: Yes. Accurate & Complete Informed Consent: Yes. Inpatient/Outpatient History & Physical on Chart: Yes. If H&P is completed, is and addenduem needed: No; If yes, is the addendum complete: N/A. Visualize and Verify Site with Patient/Guarantor: N/A. Relevant Radiology Images available: Yes. Pre-op teaching completed and patient verbalized understanding. The risks, benefits, and alternatives of sedation and/or procedure were discussed by physician. The patient agrees to continue. Procedure started. [facility] Clinical Fraility Score: 3: Managing Well. Chest Pain Symptom Assessment: Typical Angina Symptoms. Vital chart was stopped. Quality Assurance Tester Indications: Valvular Disease. Correct patient, site and procedure confirmed by cath team. Current diagnosis: Aortic Stenosis. PERRLA. Strong, equal hand equipment validation specialist bilaterally. Lungs clear x 5 lobes. IV Site on Arrival: 20 gauge in the left anticubital. IV Fluids: 0.9% NaCl at KVO. 0 mL infused prior to sanitation laborer. Pre Procedural Pulses: bilateral posterior tibial was Doppled. Pre Procedural Pulses: bilateral dorsalis pedis was Doppled. Oxygen started at 2liters/min via nasal canula. bilateral groins was prepped with chloroprep then draped in the usual sterile fashion. Baseline sample Acquired. HR: 66 BPM. Physician notified. Physician arrived. Physician scrubbed in. Immediate Pre-Procedure Time Out. Admit Source: Out Patient. Correct Patient: Yes; Correct Procedure: Yes; Correct Site: Yes; Correct Patient Position: Yes; Correct Supplies: Yes; Dried Flammable Prep: Yes; Blood Products Available: N/A;. Lidocaine 1% infiltrated to the left groin. Venous access obtained with a micropuncture set. Arterial access obtained with micropuncture set. [place] MON catheter inserted into 6Fr sheath. PA sat drawn. RV saturation drawn. RA saturation drawn. [place] out. Oximetry samples were obtained. Normal venous range: 60-85%. Normal arterial range: 95-100%. A 5 [place] JL4 catheter in over wire. EDP Sample taken: LV 122/-4,18; HR: 59 BPM; SpO2: 99%. Pullback taken: LV 122/-6,17; AO 105/53(74); Mean: 17mmHg, Peak to Peak: 13mmHg, SEP: 21sec/min; HR: 64 BPM; SpO2: 100%. Multiple views taken of left coronary artery. Catheter removed over the standard wire. A 5 [place] JR4 catheter in over wire. SVG's to OM visualized and patent. SVG's to RCA visualized and patent. Catheter removed over the standard wire. Physician scrubbed out. [place] RCA occluded. A Suture was successful obtaining hemostatsis at the Left Femoral artery insertion site. Vital chart was stopped. A Suture was successful obtaining hemostatsis at the Left Femoral vein insertion site. Arterial sheath flushed and connected to tranducer and pressure bag with heparinized saline. Post Procedure: Pulses reassessed and unchanged. PERRLA. Strong, equal hand equipment validation specialist bilaterally. No VTE prophylaxis required. Medication's Wasted: Heparin = 4500 units. Medication's Wasted: Other = Fentanyl 75mcg. Total IV fluids: 292 mL. Complications: None. Estimated blood loss: 5mL-10mL. Responsiveness - Normal response to verbal stimuli; alert and oriented, PERRLA. Airway - Unaffected, no intervention required; spontaneous ventilation. Circulation: W/N/L, pulses unchanged. Nausea/Vomiting: No. Procedure completed. Patient transferred by bed to 1st floor. Access Site Site: Left Femoral vein Sheath Size: 6 Fr Hemostasis Method: Suture Hemostasis Success: Successful Site: Left Femoral artery Sheath Size: 5 Fr Hemostasis Method: Suture Hemostasis Success: Successful Procedure Medications Start: 7:37 AM Stop: 7:37 AM Medication: Fentanyl Amount: 25 mcg Route: I.V. Start: 7:37 AM Stop: 7:37 AM Medication: Versed Amount: 1 mg Route: I.V. Start: 7:44 AM Stop: 7:44 AM Medication: 0.9% Saline Amount: 250 ml Route: I.V. bolus Start: 7:56 AM Stop: 7:56 AM Medication: Versed Amount: 1 mg Route: I.V. I, the attending physician, have reviewed and verified all procedure medications. Yes, all medications given per verbal order History/Risk Factors Hypertension: Yes Dyslipidemia: Yes Peripheral Arterial Disease (PAD): Yes Myocardial Infarction (NH): No Obesity: Yes Renal Disease: No Tobacco Use: Former Prior Interventions PCI: No CABG: Yes Valve Surgery: No Report Signatures Finalized by Dr Frandy Patel MD [facility] on 09/30/2023 10:05 AM
--- NOTE | 2023-09-29 07:40 | P.HPUD_ITS ---
Surgery/Procedure H&P Update DATE OF PROCEDURE: September 29, 2023 DATE H&P PERFORMED: 08/31/23 H&P UPDATE INFORMATION: I have reviewed H&P completed within last 30 days and I have examined patient prior to procedure PREOP DIAGNOSIS: / ASHD PRIMARY INDICATION FOR PROCEDURE: worsening aortic stenosis/worsening fatigue/ ASHD/S/P CABG PLANNED PROCEDURE: Operation Date: 09/29/23 07:00 Proposed Procedures p [facility] [address] ,I35.0,I25.10(Left) - Gutierrez Rahman M.D PATIENT REASSESSED PRIOR TO SEDATION, WITH NO CHANGE NOTED: Yes PHYSICAL EXAM: alert, clear to auscultation bilaterally and regular rate & rhythm AIRWAY EVAL/ANESTHESIA PLAN: normal airway, see other exam findings, ASA III, Monitored Anesthesia, Local Anesthesia, Risks, benefits & alternatives of sedation and/or procedure discussed and Patient agrees to continue as planned
[2023-09-29 09:02] LABS: Blood Gas Operator Identificat glc; Blood Gas Sample Site Not specified; Blood Gas Sample Type Arterial; HGB O2 Sat 60.9 % (95-100); Methemoglobin 0.5 % (0.4-1.5); Total Hemoglobin 11.4 g/dL (14-18)
[2023-09-29 09:04] LABS: Arterial Blood Gas Hematocrit 33.8 % (42-52); Blood Gas Operator Identificat glc; Blood Gas Sample Site Not specified; Blood Gas Sample Type Not specified; Carboxyhemoglobin 0.6 %THgb (0.4-20.1); HGB O2 Sat 90.9 % (95-100); Methemoglobin 0.7 % (0.4-1.5)
[2023-09-29 09:04] LABS: Blood Gas Operator Identificat glc; Blood Gas Sample Site Not specified; Blood Gas Sample Type Not specified; HGB O2 Sat 60.8 % (95-100); Methemoglobin 0.4 % (0.4-1.5); Total Hemoglobin 11.4 g/dL (14-18)
[2023-09-29 09:10] LABS: Arterial Blood Gas Hematocrit 30.4 % (42-52); Blood Gas Operator Identificat glc; Blood Gas Sample Site Not specified; Blood Gas Sample Type Not specified; Carboxyhemoglobin 0.3 %THgb (0.4-20.1); HGB O2 Sat 57.9 % (95-100); Total Hemoglobin 9.9 g/dL (14-18)
--- NOTE | 2023-09-29 10:01 | PC.NURSE ---
received into room 111-2 from cardiac refuse laborer via bed at 08 45.pt is alert and awake and oriented x 4 denies pain at present.sr on monitor.left groin with arterial and venous sheath in place.arterial line is intact to pressurized system.no hematoma noted.drsg dry and intact.right leg is warm to touch and with brisk capillary refill.dp pulse is dopplerable.instructed to notify staff for any bleeding ,pain,sob,or for any complaints at all.also instructed in activity restrictions s/p femoral artery procedure.pt verb understanding of instructions
--- NOTE | 2023-09-29 10:08 | PC.NURSE ---
right arterial femoral sheath pulled at 0920.pressure held x 20 min.then right femoral venous sheath pulled and pressure held x 10 min.no hematoma formation noted.vss through-out procedure.pt tolerated procedure well.pt instructed in activity restrictions s/p femoral artery procedure and instructed to notify staff for any bleeding,pain,sob,or for any concerns at all.pt verb understanding of instruction.
--- NOTE | 2023-09-29 10:20 | PC.NURSE ---
arterial and venous access sites are in left groin..not right groin as charted.
[2023-09-29] MEDS: metoprolol tartrate 50 mg Tablet PO (10:44)
[2023-09-29] MEDS: pregabalin 75 mg Capsule PO (10:45)
[2023-09-29 11:14] LABS: Glucose Point of Care 215 mg/dL (70-110)
[2023-09-29] MEDS: albuterol 2.5 mg/3 mL Neb INHALATION (11:57)
--- NOTE | 2023-09-29 16:02 | PC.NURSE ---
pt completed 6 hours of bedrest.ambulated in roa.did well.vss.no hematoma formation noted.discharge instructions given and explained.pt verb understanding of instructions.dischrarged via w/c to exit at 1545.daughter to drive pt home
== END 2023-09-29 15:45 | disposition home or self-care (01) ==
LOC: CCL 05:40 → CSU 08:37
PROVIDERS: Internal Medicine Cardiovascular Disease; PCP Family Medicine; Visit Provider Internal Medicine
DX: I35.0 Nonrheumatic aortic (valve) stenosis (principal); Z95.1 Presence of aortocoronary bypass graft; I25.10 Atherosclerotic heart disease of native coronary artery without angina pectoris; I10 Essential (primary) hypertension; E78.5 Hyperlipidemia, unspecified; E66.9 Obesity, unspecified; Z68.32 Body mass index [BMI] 32.0-32.9, adult; Z87.891 Personal history of nicotine dependence
CPT/HCPCS: 36415; 36416; 82810; 82962; 93461; 94640; 96365; 99152; 99153; C1751; C1769; C1887; C1894; G0378; J1644; J2250; J3010; J7030; J7613; Q0163; Q9967

== ENCOUNTER → 2023-10-06 10:13 | Outpatient (BNVA) | payer OTHER, SELFPAY | PROVIDERS: PCP Family Medicine; Visit Provider Nurse Practitioner Family | DX: I35.0 Nonrheumatic aortic (valve) stenosis (principal); I25.10 Atherosclerotic heart disease of native coronary artery without angina pectoris; Z87.891 Personal history of nicotine dependence; Z95.0 Presence of cardiac pacemaker; I10 Essential (primary) hypertension | CPT/HCPCS: 36415; 80048; 99214 ==

== ENCOUNTER 2023-10-19 10:43 | Outpatient (CLI) | payer OTHER, SELFPAY ==
--- NOTE | 2023-10-19 10:47 | CTR_ITS ---
PROCEDURE INFORMATION: Exam: CT Abdomen And Pelvis With Contrast Exam date and time: 10/19/2023 11:49 AM Age: 78 years old Clinical indication: Abdominal pain; Generalized; Prior surgery; Surgery date: 6+ months; Surgery type: Heart, back; Patient HX: Starts on left side goes across abd; Additional info: Abd pain/nausea/vomiting TECHNIQUE: Imaging protocol: Computed tomography of the abdomen and pelvis with contrast. Radiation optimization: All CT scans at this facility use at least one of these dose optimization techniques: automated exposure control; mA and/or kV adjustment per patient size (includes targeted exams where dose is matched to clinical indication); or iterative reconstruction. Contrast material: OMNI 350; Contrast volume: 100 ml; Contrast route: INTRAVENOUS (IV); REPORTING DATA: Count of CT and Cardiac NM exams in prior 12 months: This patient has received [address] and 0 known cardiac nuclear medicine studies in the 12 months prior to the current study. COMPARISON: CT abdomen pelvis w con* [id number] 07/22/2023 10:34 PM RADIATION DOSE METRICS: Total DLP (mGy-cm): 540.33 FINDINGS: Liver: Indeterminate subtle low-density lesions in the liver which are not definitively identified on prior exams. There is mild ductal dilatation in the right lobe. Further evaluation with MRI imaging is recommended for better characterization. Gallbladder and bile ducts: Contracted gallbladder. Mild ductal dilatation in the right lobe of the liver Pancreas: Atrophy of the pancreas. There are small cystic lesions in the pancreatic head Spleen: Normal. No splenomegaly. Adrenal glands: Normal. No mass. Kidneys and ureters: Bilateral subcentimeter renal cortical cysts Stomach and bowel: Colonic diverticulosis without evidence of diverticulitis. Appendix: No evidence of appendicitis. Intraperitoneal space: Unremarkable. No free air. No significant fluid collection. Vasculature: Severe atherosclerotic change of the abdominal vasculature Lymph nodes: Unremarkable. No enlarged lymph nodes. Urinary bladder: Unremarkable as visualized. Reproductive: Prostate gland is surgically absent. Bones/joints: Postop fusion of the lumbar spine. Soft tissues: Unremarkable. CT/CT abdomen pelvis w con* [id number] IMPRESSION: 1. Indeterminate subtle low-density lesions in the liver which are not definitively identified on previous examination. There is also mild ductal dilatation in the right lobe. Further evaluation with multiphasic MR imaging is recommended for better evaluation and characterization of the lesions. In addition there are cystic lesions in the pancreatic head. These can be further evaluated with multiphasic MR imaging as well. 2. Status post prostatectomy surgical change. 3. Severe atherosclerotic change of the abdominal vasculature. 4. Diverticulosis without evidence of diverticulitis. Mild increased stool within the rectum. 5. Postop surgical change of the lumbar spine 6. Mild chronic changes in both lung bases COMMENTS: Consistent with the [employer]'s Incidental Findings Committee white paper (J Am Curtis Radiol 2018): Any incidental renal lesion less than 1 cm or classified as too small to characterize, or any incidental cystic renal lesion characterized as simple-appearing, is likely benign. No follow-up imaging is recommended for these lesions per consensus recommendations based on imaging criteria.
[2023-10-19] MEDS: iohexol 350 mg/mL 500 mL Btl (per mL) IV (11:49)
[2023-10-19] MEDS: iohexol 350 mg/mL 500 mL Btl (per mL) PO (11:51)
== END 2023-10-19 10:44 | disposition home or self-care (01) ==
LOC: RAD 10:43
PROVIDERS: PCP Family Medicine; Visit Provider Family Medicine
DX: R10.84 Generalized abdominal pain (principal); R11.2 Nausea with vomiting, unspecified; K76.9 Liver disease, unspecified; K57.90 Diverticulosis of intestine, part unspecified, without perforation or abscess without bleeding; I70.90 Unspecified atherosclerosis; Z90.79 Acquired absence of other genital organ(s); Z98.1 Arthrodesis status
CPT/HCPCS: 74177; Q9967

== ENCOUNTER → 2023-11-09 11:43 | Outpatient (BNVA) | payer OTHER, SELFPAY | PROVIDERS: PCP Family Medicine; Visit Provider Internal Medicine Cardiovascular Disease | DX: Z45.010 Encounter for checking and testing of cardiac pacemaker pulse generator [battery] (principal) | CPT/HCPCS: 93296 ==

== ENCOUNTER 2023-12-12 07:09 | Inpatient (IN) | payer OTHER, SELFPAY ==
[2023-12-12] VITALS (23 sets, daily range): BP systolic 103–156; BP diastolic 60–91; PULSE 54–134; RESP 12–27; TEMP 36.4–37; O2SAT 54–99; BMI 27.4; BMI 28.5
--- NOTE | 2023-12-12 07:25 | CT_ITS ---
WS: [id number] CT ABDOMEN PELVIS TECHNIQUE: Contrast-enhanced CT of the abdomen and pelvis with coronal and sagittal reformatted image s. CLINICAL INFORMATION: abd pain COMPARISON: CT 10/19/2023 DLP: 608.[address] scans at [facility] use at least one of these dose optimization techniques: automated e xposure control; mA and/or kV adjustment per patient size (includes targeted exams where dose is matc hed to clinical indication); or iterative reconstruction. FINDINGS: A few tiny low-attenuation lesions in the liver are too small to characterize but may repre sent hepatic cysts. Pancreatic atrophy. Cystic dilatation of the pancreatic duct appears increased co mpared to the prior examinations with suggestion of a low-attenuation peripherally enhancing mass in the pancreatic head. This measures approximately 2.4 x 1.9 cm suspicious for neoplasm. This appears i ncreased in size since 10/19/2023 and 07/22/2023. Recommend further evaluation with ERCP. Patient with cardiac pacer. Prominence submucosal enhancement involving the sigmoid colon extending to the rectum suspicious for sigmoid colitis. Considering radiation colitis with history of prostate cancer. No evidence of obstru ction or constipation. Normal appendix in the RIGHT lower quadrant. Mild diffuse fatty infiltration of the liver. Normal portal vein and splenic vein. Splenic artery bryant cification. Emphysematous changes in the lung bases. Normal GE junction. Prior prostatectomy. Sigmoid diverticulosis. No evidence of acute diverticulitis. Normal appendix in the RIGHT lower quadrant. Ad renal glands are normal. No hydronephrosis. Atrophy of both kidneys. Small renal cysts. Prior postope rative changes pedicle screw fixation L2-S1. Normal caliber abdominal aorta. Slightly aneurysmal infr arenal abdominal aorta measuring 2.2 x 1.9 cm IMPRESSION: 1. Peripheral enhancing low-attenuation mass in the head of the pancreas increased since the prior e xaminations measuring 2.4 x 1.9 cm. Recommend further evaluation with ERCP. Increasing cystic dilatat ion of the pancreatic duct. Findings suspicious for pancreatic head neoplasm 2. Mild diffuse fatty infiltration of the liver. A few tiny low-attenuation lesions too small to gloria racterize may represent hepatic cysts. Heterogeneous perfusion defects have resolved compared to the prior examination. 3. Prior prostatectomy. 4. Mild submucosal enhancement involving the sigmoid colon suspicious for colitis. This extends to t he rectum. Consider radiation colitis considering history of prostate cancer 5. No other significant interval changes.. Notified Juancarlos Arriaza DO at 12/12/2023 9:50 AM.
--- NOTE | 2023-12-12 07:25 | ECG_ITS ---
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 Measurements Intervals [place] Rate: 128 P: 0 FL: 0 QRS: -25 QRSD: 85 T: 68 QT: 316 QTc: 461 Interpretive Statements ATRIAL FIBRILLATION WITH RAPID VENTRICULAR RESPONSE BORDERLINE LEFT AXIS DEVIATION [QRS AXIS < -20] NONSPECIFIC ST & T-WAVE ABNORMALITY ABNORMAL RHYTHM ECG Compared to ECG 08/20/2023 01:20:33 T-wave abnormality now present Incomplete right bundle-branch block no longer present ST (T wave) deviation no longer present Electronically Signed On 12-12-2023 9:49:01 RIG OPERATOR by Gutierrez Rahman M.D. [id number]
--- NOTE | 2023-12-12 07:27 | W.ED.ABDPA2 ---
HPI - Abdominal Pain General: Chief Complaint: ER Hold Stated Complaint: constipation Time Seen by Provider: 12/12/23 07:10 Source: patient Mode of arrival: ambulatory History of Present Illness: 78-year-old male with a history of prostate cancer comes in complaining abdominal pain no bowel movement for the last 3 days he has had a little bloody stools. He is on Pradaxa and has a history of atrial fibrillation. He has a history of prostate cancer as well he is currently getting chemotherapy. He does take pain medications daily. He is tried several stool softeners with no relief. He states he had a colonoscopy 4 years ago and was told it was normal at that time. No chest pain at this time. On arrival here he was noted to be in A-fib with RVR he is a known history of atrial fibrillation he has not taken his morning medications. MD elicited complaint: abdominal pain Pertinent past history: none Onset (ago): day(s) Pain Consistency: constant Location: Diffuse Severity: mild Quality: cramping Exacerbating factors: nothing Relieving factors: nothing Associated Symptoms: Reports bloating, constipation, GI cramping, hematochezia, nausea and poor appetite; Denies anorexia, belching, change in bowel habits, change in stool character, chills, coffee ground emesis, diarrhea, dyspepsia, dysuria, excessive flatus, fever(s), heartburn, hematuria, hematemesis, fecal incontinence, loose stools, melena, syncope and vomiting Review of Systems Const: Denies: fever(s) or chills Card: Reports: palpitations and irregular heart rhythm; Denies: syncope Resp: Denies: dyspnea GI: Reports: abdominal pain, nausea, constipation, bloating, GI cramping and hematochezia; Denies: vomiting, hematemesis, coffee ground emesis, heartburn, diarrhea, belching, excessive flatus, fecal incontinence, change in bowel habits, change in stool character or melena : Denies: dysuria, urinary frequency, urinary urgency or hematuria Musc: Denies: neck pain or back pain Skin/Breast: Denies: rash PFSH ED PFSH: Medical History Intestinal angina Atherosclerotic heart disease [place] coronary artery w/angina pectoris Chronic episodic atrial fibrillation CAD (coronary artery disease) Hypertension Hyperlipidemia COPD (chronic obstructive pulmonary disease) Pacemaker PUD (peptic ulcer disease) Diabetes PVD (peripheral vascular disease) Surgical History Hx of spinal surgery Hx of CABG H/O mastectomy History of prostatectomy Family History Other Adopted Social History Smoking and tobacco/nicotine status: former use of tobacco/nicotine Alcohol intake: current Alcohol intake frequency: holidays/special occasions only Substance/Drug Use: never Physical Exam Const: GENERAL APPEARANCE: cooperative and comfortable ORIENTATION/CONSCIOUSNESS: Yes awake, Yes oriented to person, Yes oriented to place and Yes oriented to time HENMT: COMMON NORMALS: normocephalic, atraumatic and hearing grossly normal bilaterally HEAD & SCALP: normocephalic and atraumatic Resp: COMMON NORMALS: normal respiratory effort, No retractions, No use of accessory muscles and clear to auscultation bilaterally AUSCULTATION: clear to auscultation bilaterally Cardio: COMMON NORMALS: No murmurs present (Cardio) RATE: tachycardic RHYTHM: abnormal rhythm irregularly irregular GI: COMMON NORMALS: No hepatosplenomegaly present AUSCULTATION: Yes normoactive bowel sounds PALPATION: Yes Tenderness to palpation present (GI), No Guarding due to palpation present (GI) and Yes No hepatosplenomegaly present : COMMON NORMALS: Yes no CVA tenderness BLADDER/KIDNEY EXAM: Yes no CVA tenderness Back/Pelvis: COMMON NORMALS: no CVA tenderness Extremity: COMMON NORMALS: normal to inspection, capillary refill normal, no clubbing, cyanosis or edema, no calf tenderness and no pedal edema Neuro: SENSORIUM/ORIENTATION: Yes oriented to person, Yes oriented to place and Yes oriented to time Skin: COMMON NORMALS: no rashes or lesions noted GENERAL SKIN EXAM: no rashes or lesions noted Course Vital Signs: Vital signs: Vital Signs Temperature 98 F 12/12/23 07:32 Pulse Rate 79 12/12/23 14:00 Respiratory Rate 27 H 12/12/23 14:00 Blood Pressure 130/75 12/12/23 14:00 Pulse Oximetry 93 12/12/23 14:00 Oxygen Delivery Me thod Room Air 12/12/23 14:00 MDM - Abdominal Pain Medical Decision Making CT shows increasing pancreatic mass was slight increase in ductal dilation of the pancreas lipase is normal T. bili slightly elevated liver enzymes otherwise unremarkable I did call and discussed with oncology group in [place] and we uploaded the films to them so they can compare to other films that they have done recently. CT also showed colitis patient is also neutropenic. Discussed with hospitalist will admit start cefepime and vancomycin. Medical Records I reviewed the patient's medical records. Lab Data I reviewed the patient's lab results. 12/12/23 08:00 12/12/23 08:00 Labs/Radiology: Radiology Impressions Chest X-Ray 12/12/23 12:49 IMPRESSION: AP portable chest radiograph demonstrates no evidence of acute infiltrate or CHF. Laboratory Results WBC 0.88 10^3/uL (3.29-11.43) L* 12/12/23 08:00 RBC 4.15 10^6/uL (3.85-5.65) 12/12/23 08:00 Hgb 12.10 g/dL (11.27-16.99) 12/12/23 08:00 Hct 36.0 % (37-53) L 12/12/23 08:00 MCV 86.7 fl (82-101) 12/12/23 08:00 MCH 29.2 pg (27-33) 12/12/23 08:00 MCHC 33.6 g/dL (30-55) 12/12/23 08:00 RDW 11.8 % (12.1-15.1) L 12/12/23 08:00 Plt Count 60 10^3/cmm (157-399) L 12/12/23 08:00 MPV 11.5 fL (7.4-10.4) H 12/12/23 08:00 Neut % (Auto) 50.0 % 12/12/23 08:00 Lymph % (Auto) 33.0 % 12/12/23 08:00 [place] % (Auto) 2.3 % 12/12/23 08:00 Eos % (Auto) 13.6 % 12/12/23 08:00 Baso % (Auto) 1.1 % 12/12/23 08:00 Neut # (Auto) 0.44 10^3/uL (1.8-7.7) L* 12/12/23 08:00 Lymph # (Auto) 0.3 10^3/uL (0.8-4.8) L 12/12/23 08:00 [place] # (Auto) 0.0 10^3/uL (0.2-0.9) L 12/12/23 08:00 Eos # (Auto) 0.1 10^3/uL (0.0-0.8) 12/12/23 08:00 Baso # (Auto) 0.0 10^3/uL (0.0-0.1) 12/12/23 08:00 Nucleated RBC % (auto) 0 % 12/12/23 08:00 Nucleated RBCs # 0.0 /100WBC 12/12/23 08:00 Sodium 131 mmol/L (136-145) L 12/12/23 08:00 Potassium 3.9 mmol/L (3.5-5.1) 12/12/23 08:00 Chloride 92 mmol/L (98-107) L 12/12/23 08:00 Carbon Dioxide 24 mmol/L (22-29) 12/12/23 08:00 Anion Gap 18.9 (5-19) 12/12/23 08:00 BUN 6 mg/dL (8-23) L 12/12/23 08:00 Creatinine 0.6 mg/dL (0.7-1.2) L 12/12/23 08:00 GFR Calculation Not Reportable 12/12/23 08:00 Glucose 283 mg/dL (65-115) H 12/12/23 08:00 Calculated Osmolality 280 mOsm/kg (285-295) L 12/12/23 08:00 Lactic Acid 1.1 mmol/L (0.5-2.2) 12/12/23 08:00 Calcium 8.9 mg/dL (8.5-10.5) 12/12/23 08:00 Total Bilirubin 1.3 mg/dL (0.15-1.2) H 12/12/23 08:00 AST 19 U/L (0-40) 12/12/23 08:00 ALT 24 U/L (0-41) 12/12/23 08:00 Alkaline Phosphatase 87 U/L (40-130) 12/12/23 08:00 Total Protein 6.2 g/dL (6.6-8.7) L 12/12/23 08:00 Albumin 3.9 g/dL (3.5-5.2) 12/12/23 08:00 Globulin 2.3 g/dL (1.3-4.6) 12/12/23 08:00 Lipase 31 U/L (13-60) 12/12/23 08:00 Urine Color Dark yellow (Yellow) 12/12/23 08:20 Urine Appearance Clear (CLEAR) 12/12/23 08:20 Urine pH 5 (5-7) 12/12/23 08:20 Ur Specific [place] 1.010 (1.005-1.030) 12/12/23 08:20 Urine Protein 2+ (Negative) H 12/12/23 08:20 Urine Glucose (UA) 4+ (Normal) H 12/12/23 08:20 Urine Ketones 3+ (Negative) H 12/12/23 08:20 Urine Blood Trace (Negative) H 12/12/23 08:20 Urine Nitrate Negative (Negative) 12/12/23 08:20 Urine Bilirubin 1+ (Negative) H 12/12/23 08:20 Urine Urobilinogen Norm mg/dL (Negative) 12/12/23 08:20 Ur Leukocyte Esterase Negative (Negative) 12/12/23 08:20 Urine RBC Rare /hpf (0-2) 12/12/23 08:20 Urine WBC 0-4 /hpf (0-5) H 12/12/23 08:20 Ur Squamous Epith Cells None /hpf (0-5) 12/12/23 08:20 Amorphous Sediment Not Reportable 12/12/23 08:20 Urine Bacteria 1+ /hpf (NONE) H 12/12/23 08:20 Hyaline Casts 5-10 /lpf H 12/12/23 08:20 Urine Mucus 2+ /hpf 12/12/23 08:20 All radiology interpretation(s) finalized by discharge Discharge Plan Discharge Patient Disposition: Admitted As Inpatient Admit Provider: Solitario Vaughan Clinical Impression: Colitis, Pancreatic cancer, Neutropenia Condition: Stable Coding Level of Care Code ED Newspaper Publisher for Jenna Hooker
[2023-12-12 08:23] LABS: Basophils % 1.1 %; Eosinophils # 0.1 10^3/uL (0.0-0.8); Eosinophils % 13.6 %; Lymphocytes # 0.3 10^3/uL (0.8-4.8); Mean Corpuscular HGB Conc 33.6 g/dL (30-55); Mean Corpuscular Hemoglobin 29.2 pg (27-33); Mean Corpuscular Volume 86.7 fl (82-101); Mean Platelet Volume 11.5 fL (7.4-10.4); Monocytes % 2.3 %; Nucleated Red Blood Cells % 0 %; Platelet Count 60 10^3/cmm (157-399); Red Blood Count 4.15 10^6/uL (3.85-5.65); Red Cell Distribution Width 11.8 % (12.1-15.1)
[2023-12-12] MEDS: metoprolol tartrate 50 mg Tablet PO ×2 (08:29→20:12)
[2023-12-12 08:30] LABS: Neutrophils # 0.44 10^3/uL (1.8-7.7); White Blood Count 0.88 10^3/uL (3.29-11.43)
[2023-12-12] MEDS: dilTIAZem 5 mg/mL SDV 5 mL 20 MG IVP (08:30)
[2023-12-12 08:36] LABS: Lactic Sepsis W/Reflex 1.1 mmol/L (0.5-2.2)
[2023-12-12] MEDS: ketorolac 30 mg/mL INJ 15 MG IVP (08:36)
[2023-12-12 08:37] LABS: Alanine Aminotransferase 24 U/L (0-41); Albumin Level 3.9 g/dL (3.5-5.2); Alkaline Phosphatase 87 U/L (40-130); Anion Gap 18.9 (5-19); Aspartate Amino Transferase 19 U/L (0-40); Blood Urea Nitrogen 6 mg/dL (8-23); Calcium 8.9 mg/dL (8.5-10.5); Carbon Dioxide 24 mmol/L (22-29); Chloride 92 mmol/L (98-107); Globulin 2.3 g/dL (1.3-4.6); Glucose 283 mg/dL (65-115); Lipase 31 U/L (13-60); Osmolality Calculated 280 mOsm/kg (285-295); Potassium 3.9 mmol/L (3.5-5.1); Sodium 131 mmol/L (136-145); Total Bilirubin 1.3 mg/dL (0.15-1.2); Total Protein 6.2 g/dL (6.6-8.7)
[2023-12-12 08:49] LABS: Add Urine Microscopic? YES; Bacteria Urine 1+ /hpf; Bilirubin Urine 1+ (Negative); Blood Urine Trace (Negative); Glucose Urine UA 4+ (Normal); Ketones Urine 3+ (Negative); Leukocyte Esterase Urine Negative (Negative); Mucus Urine 2+ /hpf; Nitrate Urine Negative (Negative); Protein Urine 2+ (Negative); RBC Urine RARE /hpf (0-2); Urine Appearance Clear (CLEAR); Urine Color Dark Yellow (Yellow); Urobilinogen Urine Norm (Negative); WBC Urine 0-4 /hpf (0-5); pH Urine 5 (5-7)
[2023-12-12 08:50] LABS: Add Urine Culture? No
[2023-12-12] MEDS: iohexol 350 mg/mL 500 mL Btl (per mL) IV (08:58)
[2023-12-12] MEDS: HYDROcodone-acetaminophen 5-325 mg Tablet 1 TAB PO (09:38)
--- NOTE | 2023-12-12 09:41 | PC.PHAR ---
Addendum entered by Desirae Lui 12/12/23 15:08: PTS' FAMILY ADDED MEDICATIONS TO PT PHONE LIST INCLUDING: XTAMPSA ER 9MG, CREON 36,000,NORCO 10-325, NARCAN 4MG. PT ALSO HAS FLONASE 50, SPIRIVA RESPIMAT 2.5 AND PROCHLORPERAZINE 10 MG. SHOWING ON EXT MED LIST IN CHART. Original Note: [facility] 12/12/23
[2023-12-12] MEDS: morphine 4 mg/mL SDV 1 mL IVP ×2 (09:44→13:47)
--- NOTE | 2023-12-12 10:05 | PC.NURSE ---
pt asked the nurse if he could be a DNR without saying anything to his family. Notified physician
--- NOTE | 2023-12-12 10:26 | PC.NURSE ---
Pt's daughter called, she stated she was in [place] and concerned about his pain. She said we were not managing his pain and that we needed to do our job. She yelled that she wants to be here to stand on the Dr desk and yell at him to give him fentanyl and morpnine. Notified physician
--- NOTE | 2023-12-12 11:16 | PC.PHAR ---
[facility]. Pt has current med list on cell phone. 12/12/23
[2023-12-12] MEDS: cefepime 1,000 MG in sodium chloride 0.9% (plus) 50 ML 100 MG IV ×2 (11:45→22:59)
[2023-12-12] MEDS: vancomycin 1,000 MG in sodium chloride 0.9% 250 ML 250 MG IV (12:23)
--- NOTE | 2023-12-12 12:42 | P.HP_ITS ---
Providers/Chief Complaint 2 Admitting Physician: Solitario Vaughan MD, hospitalist Primary Care Provider: Alesha Hylton MD Chief Complaint: constipation History of Present Illness Yvon Trujillo is a 78 year old male presenting to the emergency department with abdominal pain. He reports it is all over. He had 1 episode of vomiting. He has not been having any loose stools. He reports he recently had chemotherapy, on December 06 consisting of Gemzar and Abraxane. He is receiving this for recent diagnosis of pancreatic cancer . He did not receive the G-CSF stimulating factors. He has had no fever. He may have had a slight amount of blood in his stool at his last bowel movement. No chest pain or shortness of breath. He has been passing quite a bit of gas. Review of Systems 2 General: Reports: 10 or more systems reviewed and unremarkable except in HPI and below Card: Denies: chest pain Resp: Denies: dyspnea GI: Reports: abdominal pain, nausea, vomiting and hematochezia Medications/Allergies Home Medications Medication Instructions Recorded Confirmed Last Taken Type dabigatran etexilate 150 mg 150 mg PO BID@01/16/20 12/12/23 12/11/23 History capsule (Pradaxa) ferrous sulfate 325 mg (65 mg 325 mg PO DAILY@01/16/20 12/12/23 12/11/23 History iron) tablet furosemide 20 mg tablet 20 mg PO DAILY@01/16/20 12/12/23 12/11/23 History insulin glargine 100 unit/mL 35 unit SUBCUT BID 01/16/20 12/12/23 12/11/23 History subcutaneous solution (Lantus U-100 Insulin) magnesium 200 mg tablet 400 mg PO DAILY 01/16/20 12/12/23 12/11/23 History metoprolol tartrate 50 mg tablet 50 mg PO BID@01/16/20 12/12/23 12/11/23 History nitroglycerin 0.4 mg sublingual 0.4 mg sublingual Q5M PRN Chest 01/16/20 12/12/23 03/27/21 History tablet (Nitrostat) Pain rosuvastatin 20 mg tablet 10 mg PO DAILY@01/16/20 12/12/23 12/11/23 History vitamin B12 500 mcg-folic acid 400 1 tab PO DAILY@09 01/16/20 12/12/23 12/11/23 History mcg tablet albuterol sulfate 2.5 mg/3 mL 2.5 mg inhalation PRN 12/27/20 12/12/23 Unknown History (0.083 %) solution for nebulization albuterol sulfate 90 mcg/actuation 2 puff inhalation Q4H PRN 12/27/20 12/12/23 03/27/21 History aerosol inhaler (ProAir HFA) Shortness Of Breath ipratropium 20 mcg-albuterol 100 1 puff inhalation QID PRN 12/27/20 12/12/23 12/28/20 History mcg/actuation mist for inhalation Shortness Of Breath (Combivent Respimat) multivitamin 1 tab PO DAILY@0900 12/27/20 12/12/23 12/11/23 History diphenhydramine HCl 25 mg capsule 25 mg PO PRN 12/28/20 12/12/23 10/08/21 19:00 History (Benadryl) metformin 750 mg tablet,extended 1,000 mg PO BID@0900,2100 12/28/20 12/12/23 12/11/23 History release 24 hr cetirizine 10 mg tablet 10 mg PO DAILY@0900 PRN Allergy 03/27/21 12/12/23 10/07/21 History Symptoms fluticasone furoate 27.5 2 spray intranasal DAILY 03/27/21 12/12/23 12/11/23 History mcg/actuation nasal spray,suspension montelukast 10 mg tablet 10 mg PO DAILY@0900 PRN ALLERGY 03/27/21 12/12/23 10/07/21 08:00 History SYMPTOMS budesonide-formoterol HFA 160 2 puff inhalation BID 05/21/21 12/12/23 12/11/23 History mcg-4.5 mcg/actuation aerosol inhaler semaglutide 0.25 mg or 0.5 mg (2 1 mg SUBCUT Q7D 07/29/21 12/12/23 12/07/23 History mg/1.5 mL) subcutaneous pen injector (Ozempic) pregabalin 75 mg capsule 75 mg PO BID 02/01/22 12/12/23 12/11/23 History lisinopril 20 mg tablet 10 mg PO DAILY@09 09/27/23 02/19/24 02/18/24 History ondansetron 4 mg disintegrating 4 mg PO Q6H PRN nausea and 09/26/23 12/12/23 Unknown Rx tablet vomiting #14 tabs pantoprazole 40 mg tablet,delayed 40 mg PO DAILY@09 #30 tabs 09/26/23 12/12/23 12/11/23 Rx release hydrocortisone 2.5 % topical cream 1 applic MS Q6H PRN Pain 12/12/23 12/12/23 Unknown History with perineal applicator (Anusol-HC) Allergies Allergy/AdvReac Type Severity Reaction Status Date / Time atorvastatin Allergy Intermediate abdominal Verified 12/12/23 07:16 pain lovastatin Allergy Intermediate abdominal Verified 12/12/23 07:16 pain simvastatin Allergy Intermediate abdominal Verified 12/12/23 07:16 pain cilostazol Allergy Unknown unknown Verified 12/12/23 07:16 codeine Allergy Unknown unknown Verified 12/12/23 07:16 levofloxacin [From Levaquin] AdvReac Unknown tendon Verified 12/12/23 07:16 rupture PFSH Acute 2 PFSH: Medical History Intestinal angina Atherosclerotic heart disease [place] coronary artery w/angina pectoris Chronic episodic atrial fibrillation CAD (coronary artery disease) Hypertension Hyperlipidemia COPD (chronic obstructive pulmonary disease) Pacemaker PUD (peptic ulcer disease) Diabetes PVD (peripheral vascular disease) Surgical History Hx of spinal surgery Hx of CABG H/O mastectomy History of prostatectomy Family History Other Adopted Social History Smoking and tobacco/nicotine status: former use of tobacco/nicotine Alcohol intake: current Alcohol intake frequency: holidays/special occasions only Substance/Drug Use: never Vitals/I&O/Wt Last Vital Signs Temp 98 F 12/12/23 07:32 Pulse 68 12/12/23 12:30 Resp 12 12/12/23 12:30 BP 138/67 12/12/23 12:30 Pulse Ox 95 12/12/23 12:30 O2 Del Method Room Air 12/12/23 09:58 12/11/23 12/12/23 12/12/23 22:59 06:59 14:59 Intake Total 50 / 50 Balance 50 / 50 Weight last 48 hrs Weight 72.575 kg Physical Exam 2 Narrative: General exam demonstrates a white male, no distress, sitting in the room with his [id number] HEENT: Atraumatic normocephalic. Pupils equally round. Oropharynx clear. Neck is supple no lymphadenopathy thyromegaly Cardiovascular irregular, irregular with 3/6 systolic murmur, rate controlled, port noted Lungs clear no wheezing or crackles Abdomen is soft but tender. Some global tenderness. Positive bowel sounds. No obvious organomegaly. exams deferred Extremities no cyanosis clubbing or edema, cap refill brisk Skin no rash Neuro no obvious focal deficits. Data 12/12/23 08:00 12/12/23 08:00 Other Labs: Abdomen pelvis CT which I reviewed demonstrates a pancreatic head mass, increase in cystic dilation, mucosal enhancement sigmoid colon likely colitis EKG which I reviewed demonstrates atrial fibrillation, left axis deviation, nonspecific ST-T wave changes. Technically 130 when he arrived, A-fib with RVR I have ordered a chest x-ray Total bilirubin 1.3, rest of LFTs normal Lactic acid 1.1 Calcium and albumin are normal Lipase 31 Urinalysis rare red blood cells, 0-4 white blood cells A&P Assessment and plan (1) Colitis: Broad-spectrum antibiotics consisting of vancomycin, cefepime Blood cultures Monitor for diarrhea. If this occurs consider C. difficile toxin Monitor for improvement of abdominal discomfort Morphine for pain Hold metformin, semaglutide (2) Neutropenia: Patient with significant neutropenia Secondary to concern of infection with his antibiotics as above Blood cultures Reverse isolation Obviously hold chemotherapy currently Neupogen today. Reevaluate for further dosing tomorrow. (3) Thrombocytopenia: Hold Pradaxa Repeat CBC tomorrow SCDs only for DVT prophylaxis currently. (4) CAD (coronary artery disease): Currently asymptomatic Plan Pancreatic cancer. Last received chemotherapy with Gemzar and Arabaxane on December 06 Diabetes mellitus. Sliding scale insulin. Other medical problems as outlined in past medical history Allow natural . Discussed with patient in detail. [id number] witnessed. SCDs for DVT prophylaxis. Other anticoagulation currently contraindicated secondary to low platelets. Note o patient is on Pradaxa. Hold this as well. Attestations 2 Medical Necessity Statement*: Will need greater than 2 midnight stay for evaluation and treatment of neutropenia, colitis, and this patient that recently received chemotherapy Diagnoses Colitis K52.9 Neutropenia D70.9 Thrombocytopenia D69.6 Coronary artery disease involving [place] coronary artery of [place] heart without angina pectoris I25.10 Time Spent (min) 55
--- NOTE | 2023-12-12 12:49 | XRR_ITS ---
PROCEDURE INFORMATION: Exam: XR Chest Exam date and time: 12/12/2023 1:01 PM Age: 78 years old Clinical indication: Pain; Angina pectoris; Prior surgery; Surgery date: 6+ months; Surgery type: Openheart, pacer; Additional info: Panycytopenia TECHNIQUE: Imaging protocol: Radiologic exam of the chest. Views: 1 view. COMPARISON: CR (CHEST, ) 08/19/2023 11:29 PM FINDINGS: Tubes, catheters and devices: Right-sided central venous port terminates in distal SVC. Lungs: No acute pulmonary infiltrates are seen. Small opacity projecting over right lower lung zone may relate to calcification at the right anterior 5th costochondral junction. Pulmonary nodule considered less likely. Standard upright PA and lateral radiographs could provide more optimal assessment, when feasible. Pleural spaces: No significant pleural fluid. No pneumothorax detected. Heart/Mediastinum: Stable cardiac enlargement similar to 08/19/2023. Cardiac pacemaker is present in the patient has had CABG. Bones/joints: No obvious acute abnormality. XR/XR chest 1V portable [id number] IMPRESSION: AP portable chest radiograph demonstrates no evidence of acute infiltrate or CHF.
[2023-12-12] MEDS: filgrastim-sndz 480 mcg/0.8 mL Syringe SUBCUT (13:04)
[2023-12-12] MEDS: D5-NS 0.45% + KCL 20 mEq 20 MEQ/1,000 ML BAG 125 MEQ IV (13:52)
[2023-12-12] MEDS: sodium chloride 0.9% 1,000 ML 100 ML IV (13:53)
[2023-12-12] MEDS: metroNIDAZOLE IV 500 MG/100 ML PREMIX 100 MG IV ×2 (15:09→20:12)
[2023-12-12] MEDS: oxyCODONE 5 mg IR Tab/Cap PO (15:52)
[2023-12-12 16:58] LABS: Glucose Point of Care 254 mg/dL (70-110)
[2023-12-12] MEDS: pregabalin 75 mg Capsule PO (17:31)
[2023-12-12] MEDS: budesonide 0.5 mg/2 mL Neb INHALATION (20:20)
[2023-12-12] MEDS: ipratropium-albuterol 3 mL Neb INHALATION (20:20)
[2023-12-12 20:32] LABS: Glucose Point of Care 196 mg/dL (70-110)
[2023-12-12] MEDS: insulin lispro 100 unit/1 mL SUBCUT (20:44)
[2023-12-13] VITALS (17 sets, daily range): BP systolic 98–118; BP diastolic 58–73; PULSE 70–92; RESP 16–18; TEMP 36.3–37; O2SAT 95–99
[2023-12-13] MEDS: sodium chloride 0.9% 1,000 ML 100 ML IV ×2 (00:47→08:01)
[2023-12-13] MEDS: oxyCODONE 5 mg IR Tab/Cap PO ×2 (00:52→06:39)
[2023-12-13] MEDS: metroNIDAZOLE IV 500 MG/100 ML PREMIX 100 MG IV ×4 (02:17→21:23)
[2023-12-13] MEDS: ondansetron 2 mg/ML SDV 2 mL 4 MG IVP ×2 (04:25→10:29)
[2023-12-13 05:39] LABS: Basophils % 0.7 %; Eosinophils # 0.4 10^3/uL (0.0-0.8); Eosinophils % 12.6 %; Hematocrit 36.1 % (37-53); Lymphocytes # 1.2 10^3/uL (0.8-4.8); Lymphocytes % 43.3 %; Mean Corpuscular Hemoglobin 29.1 pg (27-33); Mean Corpuscular Volume 88.3 fl (82-101); Mean Platelet Volume 12.4 fL (7.4-10.4); Monocytes # 0.1 10^3/uL (0.2-0.9); Monocytes % 2.9 %; Neutrophils # 1.09 10^3/uL (1.8-7.7); Neutrophils % 39.4 %; Nucleated Red Blood Cells % 0 %; Platelet Count 66 10^3/cmm (157-399); Red Blood Count 4.09 10^6/uL (3.85-5.65); Red Cell Distribution Width 11.9 % (12.1-15.1); White Blood Count 2.77 10^3/uL (3.29-11.43)
--- OUTSIDE RECORDS SUMMARY | 2023-12-13 05:46 | XMS_ITS | Patient Health Record ---
Author Name Unknown Organization [facility] Address [address] [place] [address] Care Team Providers Care Optical Effects Layout Person Name Role Phone Annamarie Arias Unavailable [phone] Gastroenterology, [facility] [phone] REASON FOR REFERRAL No Information MEDICATIONS Medication SIG (Take, Route, Frequency, Duration) Notes Start Date End Date Status traMADol HCl 50 MG 1 tablet as needed Orally every 6 hours for 14 days Active tiZANidine HCl 4 MG 1 tablet as needed Orally Three times a day for 14 days Active Aspirin Aspirin 12/07/2018 Active Lisinopril Lisinopril 12/07/2018 Active HYDROcodone-Acetaminophe n 5-325 MG 1 tablet as needed Orally every 8 hours for 14 days 10/27/2021 Active HYDROcodone-Acetaminophe n 5-325 MG 1 tablet as needed Orally every 6 hrs for 15 days 09/21/2021 Active HYDROcodone-Acetaminophe n 5-325 MG 1 tablet as needed Orally every 6 hrs for 10 days 09/15/2021 Active Zofran ODT 4 MG 1 tablet on the tongue and allow to dissolve Orally every 12 hours as needed for nausea for 14 days 08/27/2021 Active HYDROcodone-Acetaminophe n 5-325 MG 1 tablet as needed Orally twice a day for 30 days 12/22/2021 Active Rosuvastatin rosuvastatin 12/07/2018 Act kathrine Lasix Lasix 12/07/2018 Active SOCIAL HISTORY Sex Assigned At : Social History Observation Description Sex Assigned At Unknown PROBLEMS Problem Type ICD Code Onset Dates Problem Status W/U Status Risk SNOMED Code Notes Problem Elevated C-reactive protein (CRP) (R79.82) Active confirmed C-reactive prot ein abnormal (816836626) Problem Neuropathy (G62.9) Active confirmed 386 480579 Problem 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) Active confirmed Prolapse d lumbar intervertebral disc (626444775) Problem Elevated C-reactive protein (R79.82) Active confirmed Elevated C- reactive protein (044694269882774) Problem Spondylolisthesis at L4-L5 level (M43.16) Active confirmed Acquired spondylolisthesis (311874081) Problem Blood clotting disorder (D68.9) Active confirmed Blood clott ing disorder (22895261) Encounters Encounter Location Date Provider Diagnosis [facility] [address] [place] [address] 10/28/2023 [facility] Gastro[facility] PLAN OF TREATMENT Pending Test Test Name Order Date Prothrombin Time 41377 02/27/2021 Prothrombin Time 31852 09/03/2021 Prothrombin Time 42491 02/23/2021 Prothrombin Time 95708 08/18/2021 Prothrombin Time 95967 08/18/2021 ABORh 45558, 62766 08/18/2021 ABORh 39331, 14997 08/18/2021 Antibody Screen 50851 08/18/2021 Antibody Screen 15085 08/18/2021 Basic Metabolic Panel 63920 02/23/2021 Basic Metabolic Panel 36909 08/18/2021 Basic Metabolic Panel 36562 08/18/2021 Basic Metabolic Panel 72034 09/04/2021 Basic Metabolic Panel 85995 08/31/2021 Basic Metabolic Panel 21367 09/01/2021 Basic Metabolic Panel 91118 09/02/2021 Calcium Ionized (B) 57021 09/03/2021 CBC w\ Auto Diff 65864 09/03/2021 CBC w\ Auto Diff 70736 09/02/2021 CBC w\ Auto Diff 07870 09/01/2021 CBC w\ Auto Diff 19189 08/18/2021 CBC w\ Auto Diff 94897 02/23/2021 CBC w\ Auto Diff 84530 08/18/2021 Comprehensive Metabolic Panel 63059 08/24 Comprehensive Metabolic Panel 44452 08/24 Comprehensive Metabolic Panel 16338 03/2021 Ferritin 91661 09/03/2021 Folate 75060 09/03/2021 Iron Binding Capacity Total 47067 2020 Iron Level 19455 09/03/2021 Lactic Acid 10599 08/29/2021 Lactic Acid 80001 09/02/2021 Lactic Acid 67165 09/02/2021 Lipase 95963 08/29/2021 Magnesium (B) 95468 09/03/2021 Magnesium (B) 90117 09/04/2021 Partial Thromboplastin Time 08645 2020 Partial Thromboplastin Time 15960 2020 Partial Thromboplastin Time 88276 2020 Partial Thromboplastin Time 88546 2020 Phosphorus (B) 02096 09/03/2021 Phosphorus (B) 43183 09/04/2021 Triglyceride 45365 09/03/2021 Troponin-I 99208 08/29/2021 Vitamin B12 (B) 61378 09/03/2021 Pre Albumin 72433 09/03/2021 CBC Reflex Man Diff 05662, 39675 021 CBC Reflex Man Diff 15461, 82394 021 CBC Reflex Man Diff 52728, 36993 021 CBC Reflex Man Diff 97210, 70334 021 UA Reflex Micro, Reflex Cult 81171, 8101 5, 19871 08/29/2021 CRP 86495 08/29/2021 CRP 91907 09/03/2021 CRP 01846 09/01/2021 CRP 73785 09/02/2021 CRP 53383 08/31/2021 CRP 08588 09/01/2021 CRP 47605 09/04/2021 Occult Blood Immunoassay 78466 Chest PA/Lat-61216 02/23/2021 Chest PA/Lat-27420 02/23/2021 Chest PA/Lat-56462 08/18/2021 Chest PA/Lat-12935 08/18/2021 CT Abdomen, Pelvis w/ Contrast-13627 03/2021 Lumbosacral Spine AP/Lat-74608 Lumbosacral Spine AP/Lat-25613 Lumbosacral Spine AP/Lat-08724 Lumbosacral Spine AP/Lat-50450 MRI Lumbar Spine w/o Cont-51102 12/16/19 21 MRI Lumbar Spine w/o Cont-43701 12/25/19 21 Chest 1V 09/03/2021 Electrocardiogram 12 Lead Tracing-83859 08/18/2021 Electrocardiogram 12 Lead Tracing-28060 08/18/2021 Electrocardiogram 12 Lead Tracing-09956 02/23/2021 Abdomen Acute Series-92007 09/03/2021 Abdomen Acute Series-84036 08/31/2021 Abdomen Acute Series-69292 09/02/2021 Abdomen Acute Series-72894 09/02/2021 % Iron Saturation (Fe & TIBC)--36593,835 50 09/03/2021 Glucometer WBG--36539 09/03/2021 Glucometer WBG--29927 09/03/2021 Glucometer WBG--57330 09/03/2021 Glucometer WBG--91491 09/04/2021 Glucometer WBG--05996 09/02/2021 Glucometer WBG--62413 09/02/2021 Glucometer WBG--19823 09/02/2021 Glucometer WBG--79807 09/01/2021 Glucometer WBG--94183 08/31/2021 Glucometer WBG--34403 08/31/2021 Glucometer WBG--63872 09/02/2021 Glucometer WBG--37619 09/03/2021 Glucometer WBG--84617 02/27/2021 Glucometer WBG--31070 08/25/2021 Glucometer WBG--65427 08/26/2021 Glucometer WBG--94793 08/26/2021 Glucometer WBG--00068 08/26/2021 Glucometer WBG--81857 08/26/2021 Glucometer WBG--30824 08/27/2021 Glucometer WBG--02158 08/27/2021 Glucometer WBG--57042 08/24/2021 Glucometer WBG--42502 08/29/2021 Glucometer WBG--85995 08/30/2021 Glucometer WBG--24882 08/30/2021 Glucometer WBG--39685 08/31/2021 Glucometer WBG--30492 08/24/2021 WBC Auto Diff--26370 08/31/2021 WBC Auto Diff--99306 08/24/2021 WBC Auto Diff--91488 09/03/2021 WBC Auto Diff--68734 09/04/2021 BB ABOR-54815,60113 08/20/2021 zzzFluoroscopy 02/27/2021 zzzFluoroscopy 08/24/2021 COVID 19 PCR--04642 08/18/2021 COVID 19 PCR--91981 08/18/2021 Insurance Providers Payer Name Payer Address Payer Phone Subscriber Number Group Number Insured Name Patient Relationship to Insured Coverage Start Date Coverage End Date [employer] [address] [place] [phone] [id number] Yvon Child Self - patient is the insured [facility] [address] [place] [address] [phone] [id number] Yvon Child Self - patient is the insured MEDICAL (GENERAL) HISTORY Medical History History ICD Code Problem:Chronic obstructive lung disease (disorder) , Status :: Active Problem:Coronary arteriosclerosis (disor moi) , Status :: Active Problem:Diabetes mellitus (disorder) , S tatus :: Active Problem:Hypercholesterolemia (disorder) , Status :: Active Problem:Hypertensive disorde r, systemic arterial (disorder) , Status :: Active Surgical History Surgery Date(Month/Year) microdiscectomy 02/2021 TLIF 08/2021
[2023-12-13 06:05] LABS: Alanine Aminotransferase 32 U/L (0-41); Albumin Level 3.5 g/dL (3.5-5.2); Alkaline Phosphatase 79 U/L (40-130); Anion Gap 16.1 (5-19); Aspartate Amino Transferase 30 U/L (0-40); Blood Urea Nitrogen 7 mg/dL (8-23); Calcium 8.6 mg/dL (8.5-10.5); Carbon Dioxide 22 mmol/L (22-29); Chloride 99 mmol/L (98-107); Globulin 3.1 g/dL (1.3-4.6); Glucose 171 mg/dL (65-115); Magnesium 1.6 mg/dL (1.7-2.3); Osmolality Calculated 278 mOsm/kg (285-295); Potassium 4.1 mmol/L (3.5-5.1); Sodium 133 mmol/L (136-145); Total Protein 6.6 g/dL (6.6-8.7)
[2023-12-13 06:15] LABS: Slide Review Slide Review Perform
[2023-12-13 06:35] LABS: Glucose Point of Care 169 mg/dL (70-110)
[2023-12-13] MEDS: vancomycin 1,500 MG/300 ML PIGGYBACK 200 MG IV (06:40)
[2023-12-13] MEDS: lisinopril 20 mg Tablet 10 MG PO (08:02)
[2023-12-13] MEDS: insulin lispro 100 unit/1 mL SUBCUT ×4 (08:02→21:58)
[2023-12-13] MEDS: magnesium sulfate premix 2 GM/50 ML PIGGYBACK IV (08:02)
[2023-12-13] MEDS: pregabalin 75 mg Capsule PO ×2 (08:02→17:09)
[2023-12-13] MEDS: pantoprazole DR 40 mg Tablet PO (08:03)
[2023-12-13] MEDS: metoprolol tartrate 50 mg Tablet PO (08:03)
[2023-12-13] MEDS: polyethylene glycol 3350 Pkt 17 gm PO (08:30)
[2023-12-13] MEDS: sennosides-docusate Tablet 1 TAB PO ×2 (08:30→17:09)
[2023-12-13] MEDS: lipase-protease-amylase Capsule 2 EACH PO ×3 (08:30→21:22)
--- NOTE | 2023-12-13 08:35 | PM.PN ---
Subjective Subjective: Yvon reports he feels little bit better. He did have a bowel movement. He is still having abdominal pain but it is somewhat less. He is hungry. Medications: Reviewed: Yes Vitals/I&O/Wt Last Vital Signs Temp 98.0 F 12/13/23 07:56 Pulse 87 12/13/23 07:56 Resp 17 12/13/23 07:56 BP 118/73 12/13/23 07:56 Pulse Ox 98 12/13/23 07:56 O2 Del Method Room Air 12/13/23 07:56 12/12/23 12/13/23 12/13/23 22:59 06:59 14:59 Intake Total 463.75 / 873.75 1160 / 2033.75 723.333 / 723.333 Balance 463.75 / 673.75 1160 / 1833.75 723.333 / 723.333 Weight last 48 hrs Weight 78.075 kg Weight 75.614 kg Weight 72.575 kg Physical Exam Narrative: General exam demonstrates a white male, no distress, Neck is supple no lymphadenopathy thyromegaly Cardiovascular irregular, irregular with 3/6 systolic murmur, rate controlled, port noted Lungs clear no wheezing or crackles Abdomen is soft but tender. Some global tenderness. Positive bowel sounds. No obvious organomegaly. Extremities no cyanosis clubbing or edema, cap refill brisk Data 12/13/23 04:40 12/13/23 04:40 A&P Assessment and plan (1) Colitis: Broad-spectrum antibiotics consisting of vancomycin, cefepime, Flagyl Await blood cultures Monitor for diarrhea. If this occurs consider C. difficile toxin Abdominal discomfort has improved Morphine for pain Oxycodone for pain Hold metformin, semaglutide (2) Neutropenia: Patient with significant neutropenia Secondary to concern of infection with his antibiotics as above Blood cultures pending Reverse isolation Obviously hold chemotherapy currently I gave him Neupogen December 12. ANC over 500. Repeat CBC tomorrow. (3) Thrombocytopenia: Hold Pradaxa Platelet count stable/slightly increasing. Go ahead and initiate his Pradaxa (4) CAD (coronary artery disease): Currently asymptomatic Plan Pancreatic cancer. Last received chemotherapy with Gemzar and Arabaxane on December 06 Diabetes mellitus. Sliding scale insulin. Other medical problems as outlined in past medical history Allow natural . Discussed with patient in detail. [id number] witnessed. SCDs for DVT prophylaxis. Other anticoagulation currently contraindicated secondary to low platelets. Note o patient is on Pradaxa. Hold this as well. Attestations Medical Necessity Statement*: Needs continued hospital stay for IV antibiotics related to colitis still with pain, neutropenia currently in some recovery, need for initiation of diet Diagnoses Colitis K52.9 Neutropenia D70.9 Thrombocytopenia D69.6 Coronary artery disease involving [place] coronary artery of [place] heart without angina pectoris I25.10 Time Spent (min) 25
[2023-12-13] MEDS: ipratropium-albuterol 3 mL Neb INHALATION ×2 (09:15→19:28)
[2023-12-13] MEDS: budesonide 0.5 mg/2 mL Neb INHALATION ×2 (09:15→19:28)
--- NOTE | 2023-12-13 09:42 | PC.CHAP ---
Pastoral Care Encounter/Spiritual Assessment Type of Contact [] Declined ice rink attendant visit [] Patient/Family/Request visit [] Outpatient visit [] Follow-up visit [] Physician referral [] Code/Alert [] Routine visit [] Staff referral [] Actively dying [] Patient sleeping [] Family support [] [] Out of room [] Palliative care [] [x] Receiving care in room [] Pre-surgical visit [] Trauma [] Long length of stay [] ICU visit [] Other: Relational/Emotional Strength [] Patient feels connected with others/family/visitors/staff [] Distress [] Loneliness/isolation [] Abandonment Spirituality of Patient [] Person of [place]ta [] Attends Zoroastrianism of their [place]ta [] Believes in Prayer [] Reads Bible or Church materials [] There are Spiritual issues to be addressed [employer] Interventions [] Prayer [] Active listening [] Non-anxious presence [] Spiritual/emotional support [] Crisis/trauma care [] Spiritual counseling [] Bereavement support [] Provided bereavement packet [] Provided Bible/devotional materials [] Provided toy/stuffed animal, coloring book to patient or family member [] Provided Communion [] Anointing/[place] [] Salvation [] Completed spiritual assessment [] Other: Impact on Illness or Injury [] Angry [] Fearful [] Anxious [] Often cries [] Exhaustion [] Unable to work [] Unable to attend hinduism [] Unable to walk/stand [] Unable to read [] Unable to drive [] Unable to eat/drink [] Unable to sleep [] Unable to be with family [] Patient intubated [] Other: Summary Time spent with patient
[2023-12-13] MEDS: cefepime 1,000 MG in sodium chloride 0.9% (plus) 50 ML 100 MG IV ×2 (10:29→23:21)
[2023-12-13] MEDS: oxyCODONE 5 mg IR Tab/Cap 10 MG PO ×3 (10:30→18:31)
[2023-12-13 10:54] LABS: Glucose Point of Care 241 mg/dL (70-110)
[2023-12-13 16:41] LABS: Glucose Point of Care 217 mg/dL (70-110)
[2023-12-13] MEDS: sodium chloride 0.9% 1,000 ML 75 ML IV (17:12)
[2023-12-13 21:16] LABS: Glucose Point of Care 232 mg/dL (70-110)
[2023-12-14] VITALS (16 sets, daily range): BP systolic 90–152; BP diastolic 60–73; PULSE 69–104; RESP 17–22; TEMP 36.4–37.2; O2SAT 95–98
[2023-12-14] MEDS: vancomycin 1,500 MG/300 ML PIGGYBACK 200 MG IV ×2 (00:48→17:10)
[2023-12-14] MEDS: metroNIDAZOLE IV 500 MG/100 ML PREMIX 100 MG IV ×4 (03:10→19:45)
[2023-12-14 05:16] LABS: Hematocrit 31.2 % (37-53); Mean Corpuscular HGB Conc 32.7 g/dL (30-55); Mean Corpuscular Hemoglobin 28.8 pg (27-33); Mean Corpuscular Volume 88.1 fl (82-101); Mean Platelet Volume 10.9 fL (7.4-10.4); Platelet Count 58 10^3/cmm (157-399); Red Blood Count 3.54 10^6/uL (3.85-5.65)
[2023-12-14 05:30] LABS: Anion Gap 13.8 (5-19); Blood Urea Nitrogen 6 mg/dL (8-23); Calcium 7.8 mg/dL (8.5-10.5); Carbon Dioxide 21 mmol/L (22-29); Chloride 101 mmol/L (98-107); Glucose 180 mg/dL (65-115); Magnesium 1.8 mg/dL (1.7-2.3); Osmolality Calculated 276 mOsm/kg (285-295); Potassium 3.8 mmol/L (3.5-5.1); Sodium 132 mmol/L (136-145)
[2023-12-14 05:45] LABS: Slide Review Slide Review Perform
[2023-12-14 05:46] LABS: Absolute Segmented Neutrophil 0.3 10/cmm (1.6-7.1); Eosinophils 2 %; Giant Platelets 1+; Lymphocytes 19 %; Monocytes Absolute 0.1 10^3/cmm (0.1-0.6); Platelet Estimate Decreased (Normal); Segmented Neutrophils 16 %; Total Cells Counted 50 (0-100)
[2023-12-14 06:44] LABS: Glucose Point of Care 166 mg/dL (70-110)
[2023-12-14] MEDS: oxyCODONE 5 mg IR Tab/Cap 10 MG PO ×3 (07:37→21:26)
[2023-12-14] MEDS: insulin lispro 100 unit/1 mL SUBCUT ×4 (07:38→21:23)
[2023-12-14] MEDS: filgrastim-sndz 480 mcg/0.8 mL Syringe SUBCUT (07:45)
[2023-12-14] MEDS: lipase-protease-amylase Capsule 2 EACH PO ×3 (07:46→17:09)
[2023-12-14] MEDS: budesonide 0.5 mg/2 mL Neb INHALATION ×2 (08:23→20:32)
[2023-12-14] MEDS: ipratropium-albuterol 3 mL Neb INHALATION (08:23)
[2023-12-14] MEDS: pantoprazole DR 40 mg Tablet PO (08:35)
[2023-12-14] MEDS: pregabalin 75 mg Capsule PO ×2 (08:35→17:09)
[2023-12-14] MEDS: metoprolol tartrate 50 mg Tablet 25 MG PO (08:36)
--- NOTE | 2023-12-14 08:42 | PC.NURSE ---
Dr. Vaughan notified of patient with very loose stools. Holding senna and POLYETHYLENE GLYCOL.
--- NOTE | 2023-12-14 09:38 | PC.NURSE ---
Dr. Vaughan notified of patients Blood Pressure 96/[address] Vaughan gave verbal orders to give Metoprolol 25 mg now and reschedule Metoprolol 50 mg BID.
[2023-12-14] MEDS: metoprolol tartrate 25 mg Tablet PO (09:45)
[2023-12-14] MEDS: sodium chloride 0.9% 1,000 ML 75 ML IV (10:39)
[2023-12-14] MEDS: cefepime 1,000 MG in sodium chloride 0.9% (plus) 50 ML 100 MG IV ×2 (11:50→22:35)
[2023-12-14 12:25] LABS: Glucose Point of Care 271 mg/dL (70-110)
--- NOTE | 2023-12-14 12:35 | P.PN_ITS ---
Subjective 2 Subjective: Yvon reports his abdominal pain is present this morning. He reports this is his chronic pain. He is able to eat. He did have some more bowel movements. Medications: Reviewed: Yes Vitals/I&O/Wt Last Vital Signs Temp 98.0 F 12/14/23 12:29 Pulse 89 12/14/23 12:29 Resp 20 H 12/14/23 12:29 BP 111/66 12/14/23 12:29 Pulse Ox 98 12/14/23 12:29 O2 Del Method Room Air 12/14/23 12:29 12/13/23 12/14/23 12/14/23 22:59 06:59 14:59 Intake Total 1080.417 / 2543.750 1450 / 3993.750 580 / 580 Output Total 250 / 650 200 / 850 250 / 250 Balance 830.417 / 6688.060 5939 / 3143.750 330 / 330 Weight last 48 hrs Weight 82.242 kg Weight 78.075 kg Weight 75.614 kg Physical Exam 2 Narrative: General exam demonstrates a white male, no distress, Neck is supple no lymphadenopathy thyromegaly Cardiovascular irregular, irregular with 3/6 systolic murmur, rate controlled, port noted Lungs clear no wheezing or crackles Abdomen is soft but tender. Some global tenderness. Positive bowel sounds. No obvious organomegaly. Overall this exam is not changed since yesterday Extremities no cyanosis clubbing or edema, cap refill brisk Data 12/14/23 04:59 12/14/23 04:59 A&P Assessment and plan (1) Colitis: Broad-spectrum antibiotics consisting of vancomycin, cefepime, Flagyl Monitor for diarrhea. He has some loose stool now. Check C. difficile toxin Abdominal discomfort about the same as yesterday Morphine for pain Oxycodone for pain. His long-acting oxycodone has been initiated Hold metformin, semaglutide Continue hydration (2) Neutropenia: Patient with significant neutropenia Secondary to concern of infection with his antibiotics as above Continue reverse isolation Obviously hold chemotherapy currently Repeat dose of Neupogen today. ANC 300 CBC tomorrow (3) Thrombocytopenia: Hold Pradaxa Platelet count slightly lower Go ahead and initiate his Pradaxa CBC, CMP tomorrow (4) CAD (coronary artery disease): Currently asymptomatic Plan Pancreatic cancer. Last received chemotherapy with Gemzar and Arabaxane on December 06 Diabetes mellitus. Sliding scale insulin. Other medical problems as outlined in past medical history Allow natural . Discussed with patient in detail. [id number]-ly-[id number] witnessed. SCDs for DVT prophylaxis. Other anticoagulation currently contraindicated secondary to low platelets. Note o patient is on Pradaxa. Hold this as well. Attestations 2 Medical Necessity Statement*: Needs continued hospital stay for IV antibiotics, pending increase in his neutrophil count Diagnoses Colitis K52.9 Neutropenia D70.9 Thrombocytopenia D69.6 Coronary artery disease involving [place] coronary artery of [place] heart without angina pectoris I25.10 Time Spent (min) 20
[2023-12-14 14:17] LABS: C.Diff PCR (Lab) NEGATIVE (Negative)
[2023-12-14 16:56] LABS: Glucose Point of Care 150 mg/dL (70-110)
[2023-12-14] MEDS: sennosides-docusate Tablet 1 TAB PO (17:09)
[2023-12-14] MEDS: metoprolol tartrate 50 mg Tablet PO (20:06)
[2023-12-14 21:18] LABS: Glucose Point of Care 185 mg/dL (70-110)
[2023-12-15] VITALS (8 sets, daily range): BP systolic 103–122; BP diastolic 63–71; PULSE 70–117; RESP 16–20; TEMP 36.7–37.1; O2SAT 94–96; BMI 31.5
[2023-12-15] MEDS: sodium chloride 0.9% 1,000 ML 75 ML IV (02:42)
[2023-12-15] MEDS: metroNIDAZOLE IV 500 MG/100 ML PREMIX 100 MG IV ×2 (02:43→08:53)
[2023-12-15 06:09] LABS: Basophils # 0.1 10^3/uL (0.0-0.1); Basophils % 1.3 %; Eosinophils # 0.3 10^3/uL (0.0-0.8); Hematocrit 32.2 % (37-53); Lymphocytes # 1.1 10^3/uL (0.8-4.8); Lymphocytes % 22.4 %; Mean Corpuscular HGB Conc 33.2 g/dL (30-55); Mean Corpuscular Hemoglobin 29.1 pg (27-33); Mean Corpuscular Volume 87.5 fl (82-101); Mean Platelet Volume 11.7 fL (7.4-10.4); Monocytes # 0.9 10^3/uL (0.2-0.9); Monocytes % 18.8 %; Neutrophils % 44.7 %; Nucleated Red Blood Cells % 0.9 %; Platelet Count 84 10^3/cmm (157-399); Red Blood Count 3.68 10^6/uL (3.85-5.65); Red Cell Distribution Width 12.4 % (12.1-15.1); White Blood Count 4.69 10^3/uL (3.29-11.43)
[2023-12-15 06:32] LABS: Alanine Aminotransferase 28 U/L (0-41); Alkaline Phosphatase 92 U/L (40-130); Anion Gap 14.7 (5-19); Aspartate Amino Transferase 20 U/L (0-40); Blood Urea Nitrogen 4 mg/dL (8-23); Calcium 7.9 mg/dL (8.5-10.5); Carbon Dioxide 19 mmol/L (22-29); Chloride 104 mmol/L (98-107); Globulin 2.5 g/dL (1.3-4.6); Glucose 125 mg/dL (65-115); Osmolality Calculated 276 mOsm/kg (285-295); Potassium 3.7 mmol/L (3.5-5.1); Sodium 134 mmol/L (136-145); Total Bilirubin 0.4 mg/dL (0.15-1.2); Total Protein 5.5 g/dL (6.6-8.7)
[2023-12-15] MEDS: oxyCODONE 5 mg IR Tab/Cap 10 MG PO (07:15)
[2023-12-15 07:41] LABS: Slide Review Slide Review Perform
[2023-12-15 07:56] LABS: Glucose Point of Care 125 mg/dL (70-110)
[2023-12-15] MEDS: lipase-protease-amylase Capsule 2 EACH PO (07:56)
[2023-12-15] MEDS: ipratropium-albuterol 3 mL Neb INHALATION (08:40)
[2023-12-15] MEDS: budesonide 0.5 mg/2 mL Neb INHALATION (08:40)
[2023-12-15] MEDS: pregabalin 75 mg Capsule PO (08:54)
[2023-12-15] MEDS: pantoprazole DR 40 mg Tablet PO (08:54)
[2023-12-15] MEDS: metoprolol tartrate 50 mg Tablet PO (08:54)
--- NOTE | 2023-12-15 09:22 | P.DS_ITS ---
Discharge Providers Date of Admission: 12/12/23 13:10 Date of Discharge: December 15, 2023 Attending Provider at Admission: Solitario Vaughan MD Attending Provider at Discharge: Solitario Vaughan MD Primary Care Provider: Alesha Hylton MD Diagnoses at Discharge Discharge Diagnosis (1) Colitis: Status: Acute (2) Neutropenia: Status: Acute (3) Thrombocytopenia: Status: Acute (4) CAD (coronary artery disease): Status: Acute Reason for Visit Reason for Visit: constipation Hospital Course Hospital Course Yvon is a 78-year-old white male with history of pancreatic cancer recently receiving chemotherapy who presented to the hospital with increasing abdominal pain. He was found to have colitis on CT scan. He was significantly neutropenic. Neupogen was initiated as well as broad-spectrum antibiotics. Medication was started for pain control. Pradaxa was held secondary to low platelet count initially. White blood cell count rebounded to with ANC greater than 500 the second day. He continued to have pain. On his third day of hospital stay white blood cell count decreased again where ANC was less than 500 and another dose of Neupogen was given. By December 15 abdominal discomfort was back to his baseline, with fair control with oral medication. He was having bowel movements although loose. C. difficile was tested and negative. He was able to tolerate a diet. He had not run any fevers. It was thought it was reasonable at that time to discharge him home, on a short course of cefdinir and Flagyl. He will continue to follow-up with oncology in [place]. Multiple medications were changed on discharge including discontinue his metformin, Ozempic, lisinopril, Lasix. I discussed with him and his daughter the reasons why these changes, they exhibited understanding, and agreed with the current plan. He of course can return for any worsening problems. White blood cell count on discharge 4.69, ANC 2100, platelet count 84,000, hemoglobin 10.7. Physical Exam Narrative: General exam no distress Cardiovascular irregular, irregular, rate controlled Lungs clear Abdomen soft Extremities no cyanosis clubbing or edema Discharge Data Studies Completed and Pending Completed Studies During Hospitalization Category Date Time Status CT abdomen pelvis w con* [id number] Stat Cat Scan 12/12/23 07:25 Completed XR chest 1V portable [id number] Stat Exams 12/12/23 12:49 Completed Pending at discharge Category Date Time Status Vancomycin Trough Timed Lab 12/15/23 11:00 Ordered Radiology Impressions Chest X-Ray 12/12/23 12:49 IMPRESSION: AP portable chest radiograph demonstrates no evidence of acute infiltrate or CHF. Laboratory Results WBC 4.69 10^3/uL (3.29-11.43) 12/15/23 06:00 RBC 3.68 10^6/uL (3.85-5.65) L 12/15/23 06:00 Hgb 10.70 g/dL (11.27-16.99) L 12/15/23 06:00 Hct 32.2 % (37-53) L 12/15/23 06:00 MCV 87.5 fl (82-101) 12/15/23 06:00 MCH 29.1 pg (27-33) 12/15/23 06:00 MCHC 33.2 g/dL (30-55) 12/15/23 06:00 RDW 12.4 % (12.1-15.1) 12/15/23 06:00 Plt Count 84 10^3/cmm (157-399) L D 12/15/23 06:00 MPV 11.7 fL (7.4-10.4) H 12/15/23 06:00 Neut % (Auto) 44.7 % 12/15/23 06:00 Lymph % (Auto) 22.4 % 12/15/23 06:00 [place] % (Auto) 18.8 % 12/15/23 06:00 Eos % (Auto) 6.0 % 12/15/23 06:00 Baso % (Auto) 1.3 % 12/15/23 06:00 Neut # (Auto) 2.10 10^3/uL (1.8-7.7) 12/15/23 06:00 Lymph # (Auto) 1.1 10^3/uL (0.8-4.8) 12/15/23 06:00 [place] # (Auto) 0.9 10^3/uL (0.2-0.9) 12/15/23 06:00 Eos # (Auto) 0.3 10^3/uL (0.0-0.8) 12/15/23 06:00 Baso # (Auto) 0.1 10^3/uL (0.0-0.1) 12/15/23 06:00 Nucleated RBC % (auto) 0.9 % 12/15/23 06:00 Total Counted 50 (0-100) 12/14/23 04:59 Atypical Lymphs % Not Reportable 12/14/23 04:59 Segmented Neutrophils 16 % 12/14/23 04:59 Abs Segm Neuts (Man) 0.3 10/cmm (1.6-7.1) L 12/14/23 04:59 Band Neutrophils Not Reportable 12/14/23 04:59 Lymphocytes (Manual) 19 % 12/14/23 04:59 Monocytes (Manual) 6.0 % 12/14/23 04:59 Absolute Monocytes 0.1 10^3/cmm (0.1-0.6) 12/14/23 04:59 Eosinophils (Manual) 2 % 12/14/23 04:59 Absolute Eosinophils 0.0 10^3/cmm (0.0-0.7) 12/14/23 04:59 Basophils (Manual) 0.0 % 12/14/23 04:59 Absolute Basophils 0.0 10^3/cmm (0.0-0.2) 12/14/23 04:59 Myelocytes 5.0 % 12/14/23 04:59 Promyelocytes 2.0 % 12/14/23 04:59 Nucleated RBCs # 0.0 /100WBC 12/15/23 06:00 Platelet Estimate Decreased (Normal) 12/14/23 04:59 Giant Platelets 1+ H 12/14/23 04:59 Sodium 134 mmol/L (136-145) L 12/15/23 06:00 Potassium 3.7 mmol/L (3.5-5.1) 12/15/23 06:00 Chloride 104 mmol/L (98-107) 12/15/23 06:00 Carbon Dioxide 19 mmol/L (22-29) L 12/15/23 06:00 Anion Gap 14.7 (5-19) 12/15/23 06:00 BUN 4 mg/dL (8-23) L 12/15/23 06:00 Creatinine 0.7 mg/dL (0.7-1.2) 12/15/23 06:00 GFR Calculation Not Reportable 12/15/23 06:00 Glucose 125 mg/dL (65-115) H 12/15/23 06:00 POC Glucose 125 mg/dL (70-110) H 12/15/23 07:00 Calculated Osmolality 276 mOsm/kg (285-295) L 12/15/23 06:00 Lactic Acid 1.1 mmol/L (0.5-2.2) 12/12/23 08:00 Calcium 7.9 mg/dL (8.5-10.5) L 12/15/23 06:00 Magnesium 1.8 mg/dL (1.7-2.3) 12/14/23 04:59 Total Bilirubin 0.4 mg/dL (0.15-1.2) 12/15/23 06:00 AST 20 U/L (0-40) 12/15/23 06:00 ALT 28 U/L (0-41) 12/15/23 06:00 Alkaline Phosphatase 92 U/L (40-130) 12/15/23 06:00 Total Protein 5.5 g/dL (6.6-8.7) L 12/15/23 06:00 Albumin 3.0 g/dL (3.5-5.2) L 12/15/23 06:00 Globulin 2.5 g/dL (1.3-4.6) 12/15/23 06:00 Lipase 31 U/L (13-60) 12/12/23 08:00 Urine Color Dark yellow (Yellow) 12/12/23 08:20 Urine Appearance Clear (CLEAR) 12/12/23 08:20 Urine pH 5 (5-7) 12/12/23 08:20 Ur Specific [place] 1.010 (1.005-1.030) 12/12/23 08:20 Urine Protein 2+ (Negative) H 12/12/23 08:20 Urine Glucose (UA) 4+ (Normal) H 12/12/23 08:20 Urine Ketones 3+ (Negative) H 12/12/23 08:20 Urine Blood Trace (Negative) H 12/12/23 08:20 Urine Nitrate Negative (Negative) 12/12/23 08:20 Urine Bilirubin 1+ (Negative) H 12/12/23 08:20 Urine Urobilinogen Norm mg/dL (Negative) 12/12/23 08:20 Ur Leukocyte Esterase Negative (Negative) 12/12/23 08:20 Urine RBC Rare /hpf (0-2) 12/12/23 08:20 Urine WBC 0-4 /hpf (0-5) H 12/12/23 08:20 Ur Squamous Epith Cells None /hpf (0-5) 12/12/23 08:20 Amorphous Sediment Not Reportable 12/12/23 08:20 Urine Bacteria 1+ /hpf (NONE) H 12/12/23 08:20 Hyaline Casts 5-10 /lpf H 12/12/23 08:20 Urine Mucus 2+ /hpf 12/12/23 08:20 C. difficile (PCR) Negative (Negative) 12/14/23 13:01 Vitals Last Vital Signs Temp 98.7 F 12/15/23 08:13 Pulse 117 H 12/15/23 08:40 Resp 20 H 12/15/23 08:40 BP 119/71 12/15/23 08:13 Pulse Ox 95 12/15/23 08:40 O2 Del Method Room Air 12/15/23 08:40 Discharge Plan Discharge Patient Disposition: Home Condition: Stable Prescriptions: New polyethylene glycol 3350 17 gram Powder In Packet 17 g PO DAILY Qty: 30 0RF Stool Softener-Laxative 8.6-50 mg Tablet 1 tab PO BID Qty: 60 0RF cefdinir 300 mg capsule 300 mg PO BID 6 Days Qty: 12 0RF metronidazole 500 mg tablet 500 mg PO TID Qty: 18 0RF Continued pregabalin 75 mg capsule 75 mg PO BID metoprolol tartrate 50 mg tablet 50 mg PO BID@ vitamin [id number] acid 500-400 mcg tablet 1 tab PO DAILY@09 ferrous sulfate 325 mg (65 mg iron) tablet 325 mg PO DAILY@21 Lantus U-100 Insulin 100 unit/mL solution 35 unit SUBCUT BID magnesium 200 mg tablet 400 mg PO DAILY rosuvastatin 20 mg tablet 10 mg PO DAILY@21 Pradaxa 150 mg capsule 150 mg PO BID@ Hold Instructions: Resume on 10/01/23. nitroglycerin [Nitrostat] 0.4 mg tablet, sublingual 0.4 mg SUBLINGUAL Q5M PRN (Reason: Chest Pain) budesonide-formoterol 160-4.5 mcg/actuation HFA aerosol inhaler 2 puff inhalation BID multivitamin Tablet 1 tab PO DAILY@0900 albuterol sulfate 2.5 mg /3 mL (0.083 %) Solution For Nebulization 2.5 mg inhalation PRN albuterol sulfate [ProAir HFA] 90 mcg/actuation Hfa Aerosol Inhaler 2 puff INHALATION Q4H PRN (Reason: Shortness Of Breath) Combivent Respimat 20-100 mcg/actuation mist 1 puff INHALATION QID PRN (Reason: Shortness Of Breath) diphenhydramine HCl [Benadryl] 25 mg Capsule 25 mg PO PRN cetirizine 10 mg Tablet 10 mg PO DAILY@0900 PRN (Reason: Allergy Symptoms) montelukast 10 mg tablet 10 mg PO DAILY@0900 PRN (Reason: ALLERGY SYMPTOMS) fluticasone furoate 27.5 mcg/actuation [place],Suspension 2 spray INTRANASAL DAILY Anusol-HC 2.5 % cream with perineal applicator 1 applic [place] Q6H PRN (Reason: Pain) hydrocodone-acetaminophen 10-325 mg tablet 0.5 - 1 tab PO Q4H PRN (Reason: Pain) ondansetron 8 mg tablet,disintegrating 8 mg PO TID PRN (Reason: Nausea And Vomiting) Spiriva Respimat 2.5 mcg/actuation mist 2 inh INHALATION DAILY Creon 36,000-114,000- 180,000 unit capsule,delayed release(DR/EC) 2 cap PO TID Xtampza ER 9 mg cap,sprinkl,ER12hr(DONT CRUSH) 9 mg PO Q12H prochlorperazine maleate 10 mg tablet 10 mg PO TID PRN (Reason: Nausea) fluticasone propionate 50 mcg/actuation spray,suspension 4 spray INTRANASAL DAILY naloxone 4 mg/actuation spray,non-aerosol See Rx Instructions .ROUTE .COMPLEX Rx Instructions: 1 spray in 1 nostril upon signs of opioid overdose. call 911. May repeat in alternate nostril if no response within 2 to 3 minutes. pantoprazole 40 mg tablet,delayed release (DR/EC) 40 mg PO DAILY@09 Qty: 30 0RF ondansetron 4 mg tablet,disintegrating 4 mg PO Q6H PRN (Reason: nausea and vomiting) Qty: 14 0RF Discontinued furosemide 20 mg tablet 20 mg PO DAILY@09 lisinopril 20 mg tablet 10 mg PO DAILY@09 Ozempic 0.25 mg or 0.5 mg(2 mg/1.5 mL) pen injector 1 mg SUBCUT Q7D Rx Instructions: on tue metformin 750 mg Tablet Extended Release 24 Hr 1,000 mg PO BID@0900,2100 Hold Instructions: Resume on 10/02/23. Discharge Orders: Discharge Order (Routine); Ordered 12/15/23 Ordered By: Solitario Vaughan Referrals: Alesha Hylton MD [Primary Care Provider] - 12/20/23 11:30 am Discharge Diet: Cardiac Discharge Activity: Increase activity as tolerated Patient Instructions: Metronidazole (By mouth), Cefdinir (By mouth), Polyethylene Glycol 3350 (By mouth), Senna (By mouth), Neutropenia (GEN), Colitis (ED), Neutropenic Diet, Opioid Safety Activity Restrictions/Additional Instructions: Avoid high fatty foods Take all medicine as prescribed, 6 more days of antibiotics Discontinue Ozempic, which I believe you already have. At this point stop your lisinopril and Lasix. Monitor for any extra fluid and let your physician know should you start swelling. Medications for constipation were given, but these may need to be held if you have loose stool. Return for any concerns Discharge Attestations Time Spent in Discharge Care*: greater than 30 min Status at Discharge: Cognitive status at discharge: cognitively intact , Behavioral status at discharge: cooperative , Quality Metrics Clinical Quality Measures [ No reported AMI, CVA or VTE this stay] Coding Level of Care Code 71121 Total time (in minutes) for Discharge: 46 Diagnoses Colitis K52.9 Neutropenia D70.9 Thrombocytopenia D69.6 Coronary artery disease involving [place] coronary artery of [place] heart without angina pectoris I25.10
--- NOTE | 2023-12-15 10:54 | PC.NURSE ---
Discussed discharge follow up appointments, new medications, continued meds and stopped medications with patient and family. Verbalized understanding.
== END 2023-12-15 11:45 | disposition home or self-care (01) | DRG 809 ==
LOC: ER 11:21 → MEDSURG 14:55 → ER IP 12-13 05:45 → MEDSURG 12-13 05:45
PROVIDERS: Admitting Provider Internal Medicine; Emergency Provider Family Medicine; PCP Family Medicine; Visit Provider Internal Medicine
DX: D70.1 Agranulocytosis secondary to cancer chemotherapy (principal); C25.9 Malignant neoplasm of pancreas, unspecified; I48.20 Chronic atrial fibrillation, unspecified; T45.1X5A Adverse effect of antineoplastic and immunosuppressive drugs, initial encounter; K52.9 Noninfective gastroenteritis and colitis, unspecified; I25.10 Atherosclerotic heart disease of native coronary artery without angina pectoris; E78.5 Hyperlipidemia, unspecified; J44.9 Chronic obstructive pulmonary disease, unspecified; E11.51 Type 2 diabetes mellitus with diabetic peripheral angiopathy without gangrene; D69.6 Thrombocytopenia, unspecified; Z66 Do not resuscitate; Z79.69 Long term (current) use of other immunomodulators and immunosuppressants; Z79.4 Long term (current) use of insulin; Z79.84 Long term (current) use of oral hypoglycemic drugs; Z79.85 Long-term (current) use of injectable non-insulin antidiabetic drugs; Z95.1 Presence of aortocoronary bypass graft; Z95.0 Presence of cardiac pacemaker; Z87.11 Personal history of peptic ulcer disease
CPT/HCPCS: 36416; 36591; 71045; 74177; 80048; 80053; 81001; 82962; 83605; 83690; 83735; 85007; 85025; 87493; 93005; 94640; 96372; J0692; J1815; J1885; J2270; J2405; J3370; J3475; J3490; J7030; J7050; J7626; Q5101; Q9967

== ENCOUNTER → 2024-01-11 23:26 | Outpatient (BNVA) | payer OTHER, SELFPAY | PROVIDERS: PCP Family Medicine; Visit Provider Internal Medicine Cardiovascular Disease | DX: Z45.010 Encounter for checking and testing of cardiac pacemaker pulse generator [battery] (principal) | CPT/HCPCS: 93296 ==

== ENCOUNTER → 2024-03-06 10:13 | Outpatient (BNVA) | payer OTHER, SELFPAY | PROVIDERS: PCP Family Medicine; Visit Provider Internal Medicine Cardiovascular Disease | DX: I25.10 Atherosclerotic heart disease of native coronary artery without angina pectoris (principal); I35.0 Nonrheumatic aortic (valve) stenosis; I73.9 Peripheral vascular disease, unspecified; Z95.0 Presence of cardiac pacemaker; E78.2 Mixed hyperlipidemia; I10 Essential (primary) hypertension; I48.20 Chronic atrial fibrillation, unspecified; C25.9 Malignant neoplasm of pancreas, unspecified; C77.2 Secondary and unspecified malignant neoplasm of intra-abdominal lymph nodes; Z87.891 Personal history of nicotine dependence; Z95.1 Presence of aortocoronary bypass graft | CPT/HCPCS: 99214 ==

== ENCOUNTER 2024-04-12 00:33 | Emergency (ER) | payer OTHER, SELFPAY ==
[2024-04-12 00:34] VITALS: BP 120/81; PULSE 81; RESP 16; TEMP 36.6; O2SAT 98
--- NOTE | 2024-04-12 00:54 | ED_ITS ---
HPI - Abdominal Pain 2 General: Chief Complaint: Abdominal Pain Stated Complaint: abd pain, Cancer pt Time Seen by Provider: 04/12/24 00:42 History of Present Illness: 79-year-old man with known stage IV panc reatic cancer who presents to the emergency room with worsening abdominal pain. His oncologist had increased his oxycodone from 10 to 20 mg of immediate release and increase the frequency of his long-acting today but the pain was just too much tonight. It is not really different than usual to in the same place. Epigastric. But just not able to get under control. No vomiting. No altered mental status. No fevers. Review of Systems 2 Narrative: Constitutional symptoms: Negative except as documented in HPI. Skin symptoms: Negative except as documented in HPI. Eye symptoms: Negative except as documented in HPI. ENMT symptoms: Negative except as documented in HPI. Respiratory symptoms: Negative except as documented in HPI. Cardiovascular symptoms: Negative except as documented in HPI. Gastrointestinal symptoms: Negative except as documented in HPI. Genitourinary symptoms: Negative except as documented in HPI. Musculoskeletal symptoms: Negative except as documented in HPI. Neurologic symptoms: Negative except as documented in HPI. Psychiatric symptoms: Negative except as documented in HPI. Endocrine symptoms: Negative except as documented in HPI. PFSH ED 2 PFSH: Medical History Intestinal angina Atherosclerotic heart disease [place] coronary artery w/angina pectoris Chronic episodic atrial fibrillation CAD (coronary artery disease) Hypertension Hyperlipidemia COPD (chronic obstructive pulmonary disease) Pacemaker [employer]-implant 07/11/2019 PUD (peptic ulcer disease) Diabetes PVD (peripheral vascular disease) Surgical History Hx of spinal surgery Hx of CABG H/O mastectomy History of prostatectomy Family History Other Adopted Social History Smoking and tobacco/nicotine status: former use of tobacco/nicotine Alcohol intake: current Alcohol intake frequency: holidays/special occasions only Substance/Drug Use: never Physical Exam 2 Narrative: EXAM NARRATIVE: General: Alert, no acute distress. Skin: Warm, dry. Head: Normocephalic, atraumatic. Neck: Supple, trachea midline. Eye: Extraocular movements are intact. Ears, nose, mouth and throat: mucosa moist. Cardiovascular: Regular, Normal peripheral perfusion. Respiratory: Lungs are clear to auscultation, respirations are non-labored, breath sounds are equal, Symmetrical chest wall expansion. Gastrointestinal: Soft, moderate epigastric tenderness, Non distended, Normal bowel sounds. Musculoskeletal: Normal ROM, no deformity. Neurological: Alert and oriented, No focal neurological deficit observed. Psychiatric: Cooperative, appropriate mood & affect. Course 2 Vital Signs: Vital signs: Vital Signs Temperature 97.9 F 04/12/24 00:34 Pulse Rate 81 04/12/24 00:34 Respiratory Rate 18 04/12/24 01:28 Blood Pressure 120/81 04/12/24 00:34 Pulse Oximetry 96 04/12/24 01:28 Oxygen Delivery Me thod Room Air 04/12/24 00:34 MDM - Abdominal Pain Medical Decision Making Medical decision making: Differential diagnosis including but not limited to and based on the above HPI, review of systems and physical exam: Obtaining basic lab work and a lipase to make sure there is nothing acute going on. It sounds like this is just worsening of his chronic pain. Orders placed to evaluate differential diagnosis based on the above differential, HPI and physical exam Lab Review: Laboratory results were reviewed and interpreted by myself the emergency room physician. Lab work was fairly unremarkable. No leukocytosis. No renal failure. Lipase was normal. I reviewed the patient's medical record. Reexamination: Patient says he feels quite a bit better after receiving IV Dilaudid. Assessment and plan: Stage IV pancreatic cancer Chronic pain with acute exacerbation -2 mg IV Dilaudid with improvement in the patient's pain. - Discharged home - Discussed plan with patient. Answered any questions. - Evaluation and treatment of this problem were appropriate in the emergency setting. Lab Data 04/12/24 01:32 04/12/24 01:32 Labs/Radiology: Laboratory Results WBC 8.91 10^3/uL (3.29-11.43) 04/12/24 01:32 RBC 4.36 10^6/uL (3.85-5.65) 04/12/24 01:32 Hgb 12.00 g/dL (11.27-16.99) 04/12/24 01:32 Hct 37.2 % (37-53) 04/12/24 01:32 MCV 85.3 fl (82-101) 04/12/24 01:32 MCH 27.5 pg (27-33) 04/12/24 01:32 MCHC 32.3 g/dL (30-55) 04/12/24 01:32 RDW 13.8 % (12.1-15.1) 04/12/24 01:32 Plt Count 136 10^3/cmm (157-399) L 04/12/24 01:32 MPV 11.2 fL (7.4-10.4) H 04/12/24 01:32 Neut % (Auto) 65.1 % 04/12/24 01:32 Lymph % (Auto) 22.0 % 04/12/24 01:32 [place] % (Auto) 11.0 % 04/12/24 01:32 Eos % (Auto) 1.5 % 04/12/24 01:32 Baso % (Auto) 0.1 % 04/12/24 01:32 Neut # (Auto) 5.80 10^3/uL (1.8-7.7) 04/12/24 01:32 Lymph # (Auto) 2.0 10^3/uL (0.8-4.8) 04/12/24 01:32 [place] # (Auto) 1.0 10^3/uL (0.2-0.9) H 04/12/24 01:32 Eos # (Auto) 0.1 10^3/uL (0.0-0.8) 04/12/24 01:32 Baso # (Auto) 0.0 10^3/uL (0.0-0.1) 04/12/24 01:32 Nucleated RBC % (auto) 0 % 04/12/24 01:32 Nucleated RBCs # 0.0 /100WBC 04/12/24 01:32 Sodium 140 mmol/L (136-145) 04/12/24 01:32 Potassium 3.6 mmol/L (3.5-5.1) 04/12/24 01:32 Chloride 103 mmol/L (98-107) 04/12/24 01:32 Carbon Dioxide 26 mmol/L (22-29) 04/12/24 01:32 Anion Gap 14.6 (5-19) 04/12/24 01:32 BUN 20 mg/dL (8-23) 04/12/24 01:32 Creatinine 0.7 mg/dL (0.7-1.2) 04/12/24 01:32 GFR Calculation Not Reportable 04/12/24 01:32 Glucose 158 mg/dL (65-115) H 04/12/24 01:32 Calculated Osmolality 296 mOsm/kg (285-295) H 04/12/24 01:32 Lactic Acid 1.4 mmol/L (0.5-2.2) 04/12/24 01:32 Calcium 8.3 mg/dL (8.5-10.5) L 04/12/24 01:32 Total Bilirubin 0.4 mg/dL (0.15-1.2) 04/12/24 01:32 AST 20 U/L (0-40) 04/12/24 01:32 ALT 14 U/L (0-41) 04/12/24 01:32 Alkaline Phosphatase 107 U/L (40-130) 04/12/24 01:32 C-Reactive Protein 14.9 mg/L (0.0-4.9) H 04/12/24 01:32 Total Protein 6.5 g/dL (6.6-8.7) L 04/12/24 01:32 Albumin 3.5 g/dL (3.5-5.2) 04/12/24 01:32 Globulin 3.0 g/dL (1.3-4.6) 04/12/24 01:32 Lipase 6 U/L (13-60) L 04/12/24 01:32 No radiology studies performed this visit Discharge Plan Discharge Patient Disposition: Home Clinical Impression: Abdominal pain Qualifiers: Abdominal location: epigastric Qualified Code(s): R10.13 - Epigastric pain Pancreatic cancer Qualifiers: Pancreatic malignancy location: unspecified Qualified Code(s): C25.9 - Malignant neoplasm of pancreas, unspecified Condition: Stable Prescriptions: No Action pregabalin 75 mg capsule 75 mg PO BID metoprolol tartrate 50 mg tablet 50 mg PO BID@09,21 vitamin R97-gtwdh acid 500-400 mcg tablet 1 tab PO DAILY@09 ferrous sulfate 325 mg (65 mg iron) tablet 325 mg PO DAILY@21 Lantus U-100 Insulin 100 unit/mL solution 35 unit SUBCUT BID magnesium 200 mg tablet 400 mg PO DAILY rosuvastatin 20 mg tablet 10 mg PO DAILY@21 Pradaxa 150 mg capsule 150 mg PO BID@ Hold Instructions: Resume on 10/01/23. nitroglycerin [Nitrostat] 0.4 mg tablet, sublingual 0.4 mg SUBLINGUAL Q5M PRN (Reason: Chest Pain) budesonide-formoterol 160-4.5 mcg/actuation HFA aerosol inhaler 2 puff inhalation BID multivitamin Tablet 1 tab PO DAILY@0900 albuterol sulfate 2.5 mg /3 mL (0.083 %) Solution For Nebulization 2.5 mg inhalation PRN albuterol sulfate [ProAir HFA] 90 mcg/actuation Hfa Aerosol Inhaler 2 puff INHALATION Q4H PRN (Reason: Shortness Of Breath) Combivent Respimat 20-100 mcg/actuation mist 1 puff INHALATION QID PRN (Reason: Shortness Of Breath) diphenhydramine HCl [Benadryl] 25 mg Capsule 25 mg PO PRN cetirizine 10 mg Tablet 10 mg PO DAILY@0900 PRN (Reason: Allergy Symptoms) montelukast 10 mg tablet 10 mg PO DAILY@0900 PRN (Reason: ALLERGY SYMPTOMS) Anusol-HC 2.5 % cream with perineal applicator 1 applic [place] Q6H PRN (Reason: Pain) hydrocodone-acetaminophen 10-325 mg tablet 0.5 - 1 tab PO Q4H PRN (Reason: Pain) ondansetron 8 mg tablet,disintegrating 8 mg PO TID PRN (Reason: Nausea And Vomiting) Spiriva Respimat 2.5 mcg/actuation mist 2 inh INHALATION DAILY Creon 36,000-114,000- 180,000 unit capsule,delayed release(DR/EC) 2 cap PO TID Xtampza ER 9 mg cap,sprinkl,ER12hr(DONT CRUSH) 9 mg PO Q12H prochlorperazine maleate 10 mg tablet 10 mg PO TID PRN (Reason: Nausea) fluticasone propionate 50 mcg/actuation spray,suspension 4 spray INTRANASAL DAILY naloxone 4 mg/actuation spray,non-aerosol See Rx Instructions .ROUTE .COMPLEX Rx Instructions: 1 spray in 1 nostril upon signs of opioid overdose. call 911. May repeat in alternate nostril if no response within 2 to 3 minutes. polyethylene glycol 3350 17 gram Powder In Packet 17 g PO DAILY Qty: 30 0RF Stool Softener-Laxative 8.6-50 mg Tablet 1 tab PO BID Qty: 60 0RF pantoprazole 40 mg tablet,delayed release (DR/EC) 40 mg PO DAILY@09 Qty: 30 0RF Discharge Orders: Discharge ED (Routine); Ordered 04/12/24 Ordered By: Chrystal Monk Referrals: Alesha Hylton MD [Primary Care Provider] - Discharge Diet: Usual diet Discharge Activity: Increase activity as tolerated Patient Instructions: Abdominal Pain (ED), Opioid Safety, Pain Management Activity Restrictions/Additional Instructions: Thank you for choosing [facility] for your healthcare needs today. Please realize this is an emergency room and that we are providing you with a medical screening exam and this may not be complete and all inclusive of all the testing and or work up that you may need to determine your ailment or severity of your illness. You have been screened and evaluated and felt safe for discharge. Health conditions do change or evolve sometimes and as such it is important that you follow up with your Primary Doctor to be re checked, 3-5 days is a general good time frame for follow up. You are always welcome to return to the ED for re assessment if your symptoms are worsening or you have new concerns Coding Level of Care Code ED [place] Clerk for Jenna Hooker
[2024-04-12 01:28] VITALS: RESP 18; O2SAT 96
[2024-04-12] MEDS: HYDROmorphone 1 mg/mL INJ 1 mL 2 MG IVP (01:28)
[2024-04-12 01:39] LABS: Basophils % 0.1 %; Eosinophils # 0.1 10^3/uL (0.0-0.8); Eosinophils % 1.5 %; Hematocrit 37.2 % (37-53); Mean Corpuscular HGB Conc 32.3 g/dL (30-55); Mean Corpuscular Hemoglobin 27.5 pg (27-33); Mean Corpuscular Volume 85.3 fl (82-101); Mean Platelet Volume 11.2 fL (7.4-10.4); Neutrophils % 65.1 %; Nucleated Red Blood Cells % 0 %; Platelet Count 136 10^3/cmm (157-399); Red Blood Count 4.36 10^6/uL (3.85-5.65); Red Cell Distribution Width 13.8 % (12.1-15.1); White Blood Count 8.91 10^3/uL (3.29-11.43)
[2024-04-12 01:54] LABS: Lactic Sepsis W/Reflex 1.4 mmol/L (0.5-2.2)
[2024-04-12 01:55] LABS: Alanine Aminotransferase 14 U/L (0-41); Albumin Level 3.5 g/dL (3.5-5.2); Alkaline Phosphatase 107 U/L (40-130); Anion Gap 14.6 (5-19); Aspartate Amino Transferase 20 U/L (0-40); Blood Urea Nitrogen 20 mg/dL (8-23); C Reactive Protein 14.9 mg/L (0.0-4.9); Calcium 8.3 mg/dL (8.5-10.5); Carbon Dioxide 26 mmol/L (22-29); Chloride 103 mmol/L (98-107); Creatinine Clr Calc Pharmacy 68.3602; Glucose 158 mg/dL (65-115); Lipase 6 U/L (13-60); Osmolality Calculated 296 mOsm/kg (285-295); Potassium 3.6 mmol/L (3.5-5.1); Sodium 140 mmol/L (136-145); Total Bilirubin 0.4 mg/dL (0.15-1.2); Total Protein 6.5 g/dL (6.6-8.7)
[2024-04-12 02:31] VITALS: BP 142/71; PULSE 87; RESP 20; O2SAT 98
== END 2024-04-12 02:41 | disposition home or self-care (01) ==
PROVIDERS: Emergency Provider Emergency Medicine; PCP Family Medicine
DX: R10.13 Epigastric pain (principal); C25.9 Malignant neoplasm of pancreas, unspecified; Z79.4 Long term (current) use of insulin; Z87.891 Personal history of nicotine dependence; I25.10 Atherosclerotic heart disease of native coronary artery without angina pectoris; E78.5 Hyperlipidemia, unspecified; J44.9 Chronic obstructive pulmonary disease, unspecified; Z95.0 Presence of cardiac pacemaker; E11.9 Type 2 diabetes mellitus without complications; Z95.1 Presence of aortocoronary bypass graft
CPT/HCPCS: 80053; 83605; 83690; 85025; 86140; 96374; 99284; J1170; J1642

== ENCOUNTER 2024-04-13 07:37 | Emergency (ER) | payer OTHER, SELFPAY ==
[2024-04-13] VITALS (8 sets, daily range): BP systolic 112–143; BP diastolic 48–66; PULSE 78–87; RESP 16–18; TEMP 36.9; O2SAT 96–99; BMI 27.4
--- NOTE | 2024-04-13 07:47 | ED_ITS ---
HPI - Abdominal Pain 2 General: Chief Complaint: Abdominal Pain Stated Complaint: increased pain. pancreatic ca Time Seen by Provider: 04/13/24 07:41 Source: patient Mode of arrival: ambulatory History of Present Illness: 79-year-old male with a known history of pancreatic cancer diagnosed earlier this year. He was undergoing chemotherapy for a few months and then stopped because of side effects at this point in talking to him it sounds like he has been more focused on pain control. They had recently increased his pain medications he took some at midnight and 4 AM he still having severe abdominal discomfort. Because of the pain medications also mentions he says quite a bit of constipation. No report of fever. At this point he is uncertain if he really cares to have much of an evaluation other than just getting his pain controlled. MD elicited complaint: abdominal pain Pertinent past history: constipation and other (Pancreatic cancer with metastasis) Onset (ago): day(s) Pain Consistency: constant Location: Diffuse Quality: sharp Exacerbating factors: nothing Relieving factors: nothing Associated Symptoms: Reports bloating, change in stool character, constipation and GI cramping; Denies anorexia, belching, change in bowel habits, chills, coffee ground emesis, diarrhea, dyspepsia, dysuria, excessive flatus, fever(s), heartburn, hematochezia, hematuria, hematemesis, fecal incontinence, loose stools, melena, nausea, poor appetite, syncope and vomiting Review of Systems 2 Const: Denies: fever(s) or chills Card: Denies: syncope Resp: Denies: dyspnea GI: Reports: abdominal pain, constipation, bloating, GI cramping and change in stool character; Denies: nausea, vomiting, hematemesis, coffee ground emesis, heartburn, diarrhea, belching, excessive flatus, fecal incontinence, change in bowel habits, hematochezia or melena : Denies: dysuria or hematuria Musc: Denies: neck pain or back pain Skin/Breast: Denies: rash PFSH ED 2 PFSH: Medical History (Updated 04/13/24 @ 11:13 by Juancarlos Arriaza DO) Pancreatic cancer metastasized to intra-abdominal lymph node Thrombocytopenia Occlusion of superior mesenteric artery Peripheral arterial disease Pletal caused atrial fibrillation with rapid ventricular rate? Aortic valve stenosis Intestinal angina Chronic episodic atrial fibrillation CAD (coronary artery disease) Hypertension Hyperlipidemia COPD (chronic obstructive pulmonary disease) Pacemaker Med[employer]-implant 07/11/2019 PUD (peptic ulcer disease) Diabetes PVD (peripheral vascular disease) Surgical History Hx of spinal surgery Hx of CABG H/O mastectomy History of prostatectomy Family History Other Adopted Social History Smoking and tobacco/nicotine status: former use of tobacco/nicotine Alcohol intake: current Alcohol intake frequency: holidays/special occasions only Substance/Drug Use: never Physical Exam 2 Const: GENERAL APPEARANCE: cooperative and comfortable O RIENTATION/CONSCIOUSNESS: Yes awake, Yes oriented to person, Yes oriented to place and Yes oriented to time HENMT: COMMON NORMALS: normocephalic, atraumatic and hearing grossly normal bilaterally HEAD & SCALP: normocephalic and atraumatic Resp: COMMON NORMALS: normal respiratory effort, No retractions, No use of accessory muscles and clear to auscultation bilaterally AUSCULTATION: clear to auscultation bilaterally Cardio: COMMON NORMALS: regular rate, regular rhythm and No murmurs present (Cardio) RATE: regular rate RHYTHM: regular rhythm GI: INSPECTION: Yes abdominal distension (Mild) AUSCULTATION: Yes normoactive bowel sounds PALPATION: Yes Tenderness to palpation present (GI) (Diffuse) and No Guarding due to palpation present (GI) Extremity: COMMON NORMALS: normal to inspection, capillary refill normal, no clubbing, cyanosis or edema, no calf tenderness and no pedal edema Neuro: SENSORIUM/ORIENTATION: Yes oriented to person, Yes oriented to place and Yes oriented to time Skin: COMMON NORMALS: no rashes or lesions noted GENERAL SKIN EXAM: no rashes or lesions noted Course 2 Vital Signs: Vital signs: Vital Signs Temperature 98.5 F 04/13/24 07:39 Pulse Rate 83 04/13/24 09:40 Respiratory Rate 16 04/13/24 11:43 Blood Pressure 112/48 04/13/24 09:40 Pulse Oximetry 98 04/13/24 11:43 Oxygen Delivery Me thod Room Air 04/13/24 08:06 MDM - Abdominal Pain Medical Decision Making Abdominal pain and pancreatic cancer. No acute abdominal findings. Laboratory tests have no significant abnormalities KUB did not show any obstruction or abnormality in the chest no significant constipation noted on the film which patient was concerned about. Pain medications did improve his discomfort. Long discussion with patient family members strongly encouraged since her not pursuing any treatment to enroll with hospice. Patient has had 3 ER visits in the last day and a half I think hospice would do a much better job of helping him control his pain titrating medications. They have made contact with hospice they are going to meet them at their home after they are discharged from here. Medical Records I reviewed the patient's medical records. Lab Data I reviewed the patient's lab results. 04/13/24 07:56 04/13/24 07:56 Labs/Radiology: Radiology Impressions Chest/Abdomen X-ray 04/13/24 07:55 IMPRESSION: No acute cardiopulmonary findings. Laboratory Results WBC 10.06 10^3/uL (3.29-11.43) 04/13/24 07:56 RBC 4.53 10^6/uL (3.85-5.65) 04/13/24 07:56 Hgb 12.50 g/dL (11.27-16.99) 04/13/24 07:56 Hct 37.5 % (37-53) 04/13/24 07:56 MCV 82.8 fl (82-101) 04/13/24 07:56 MCH 27.6 pg (27-33) 04/13/24 07:56 MCHC 33.3 g/dL (30-55) 04/13/24 07:56 RDW 14.0 % (12.1-15.1) 04/13/24 07:56 Plt Count 117 10^3/cmm (157-399) L 04/13/24 07:56 MPV 10.5 fL (7.4-10.4) H 04/13/24 07:56 Neut % (Auto) 74.7 % 04/13/24 07:56 Lymph % (Auto) 15.4 % 04/13/24 07:56 Bland % (Auto) 8.6 % 04/13/24 07:56 Eos % (Auto) 0.9 % 04/13/24 07:56 Baso % (Auto) 0.1 % 04/13/24 07:56 Neut # (Auto) 7.51 10^3/uL (1.8-7.7) 04/13/24 07:56 Lymph # (Auto) 1.6 10^3/uL (0.8-4.8) 04/13/24 07:56 Bland # (Auto) 0.9 10^3/uL (0.2-0.9) 04/13/24 07:56 Eos # (Auto) 0.1 10^3/uL (0.0-0.8) 04/13/24 07:56 Baso # (Auto) 0.0 10^3/uL (0.0-0.1) 04/13/24 07:56 Nucleated RBC % (auto) 0 % 04/13/24 07:56 Nucleated RBCs # 0.0 /100WBC 04/13/24 07:56 Sodium 135 mmol/L (136-145) L 04/13/24 07:56 Potassium 3.2 mmol/L (3.5-5.1) L 04/13/24 07:56 Chloride 96 mmol/L (98-107) L 04/13/24 07:56 Carbon Dioxide 27 mmol/L (22-29) 04/13/24 07:56 Anion Gap 15.2 (5-19) 04/13/24 07:56 BUN 9 mg/dL (8-23) 04/13/24 07:56 Creatinine 0.6 mg/dL (0.7-1.2) L 04/13/24 07:56 GFR Calculation Not Reportable 04/13/24 07:56 Glucose 141 mg/dL (65-115) H 04/13/24 07:56 Calculated Osmolality 281 mOsm/kg (285-295) L 04/13/24 07:56 Calcium 8.9 mg/dL (8.5-10.5) 04/13/24 07:56 Total Bilirubin 1.0 mg/dL (0.15-1.2) 04/13/24 07:56 AST 19 U/L (0-40) 04/13/24 07:56 ALT 13 U/L (0-41) 04/13/24 07:56 Alkaline Phosphatase 114 U/L (40-130) 04/13/24 07:56 Total Protein 6.7 g/dL (6.6-8.7) 04/13/24 07:56 Albumin 3.5 g/dL (3.5-5.2) 04/13/24 07:56 Globulin 3.2 g/dL (1.3-4.6) 04/13/24 07:56 Lipase 8 U/L (13-60) L 04/13/24 07:56 Urine Color Yellow (Yellow) 04/13/24 09:38 Urine Appearance Clear (CLEAR) 04/13/24 09:38 Urine pH 6 (5-7) 04/13/24 09:38 Ur Specific [place] 1.020 (1.005-1.030) 04/13/24 09:38 Urine Protein Neg (Negative) 04/13/24 09:38 Urine Glucose (UA) Norm (Normal) 04/13/24 09:38 Urine Ketones 2+ (Negative) H 04/13/24 09:38 Urine Blood Neg (Negative) 04/13/24 09:38 Urine Nitrate Negative (Negative) 04/13/24 09:38 Urine Bilirubin Neg (Negative) 04/13/24 09:38 Urine Urobilinogen Norm mg/dL (Negative) 04/13/24 09:38 Ur Leukocyte Esterase Negative (Negative) 04/13/24 09:38 All radiology interpretation(s) finalized by discharge Discharge Plan Discharge Patient Disposition: Home Clinical Impression: Pancreatic cancer Qualifiers: Pancreatic malignancy location: unspecified Qualified Code(s): C25.9 - Malignant neoplasm of pancreas, unspecified Condition: Stable Prescriptions: No Action pregabalin 75 mg capsule 75 mg PO BID metoprolol tartrate 50 mg tablet 50 mg PO BID@ vitamin P55-tyvxw acid 500-400 mcg tablet See Rx Instructions .ROUTE .COMPLEX Rx Instructions: TAKE 1 TABLET BY MOUTH 3 TIMES WEEKLY. ferrous sulfate 325 mg (65 mg iron) tablet 325 mg PO DAILY@21 Lantus U-100 Insulin 100 unit/mL solution 50 unit SUBCUT QAM rosuvastatin 20 mg tablet 10 mg PO DAILY@21 Pradaxa 150 mg capsule 150 mg PO BID@ Hold Instructions: Resume on 10/01/23. nitroglycerin [Nitrostat] 0.4 mg tablet, sublingual 0.4 mg SUBLINGUAL Q5M PRN (Reason: Chest Pain) multivitamin Tablet 1 tab PO DAILY@0900 albuterol sulfate 2.5 mg /3 mL (0.083 %) Solution For Nebulization 2.5 mg inhalation PRN PRN (Reason: Shortness Of Breath) albuterol sulfate [ProAir HFA] 90 mcg/actuation Hfa Aerosol Inhaler 2 puff INHALATION Q4H PRN (Reason: Shortness Of Breath) cetirizine 10 mg Tablet 10 mg PO DAILY@0900 montelukast 10 mg tablet 10 mg PO QPM hydrocortisone [Anusol-HC] 2.5 % cream with perineal applicator 1 applic SD Q6H PRN (Reason: Pain) ondansetron 8 mg tablet,disintegrating 8 mg PO TID PRN (Reason: Nausea And Vomiting) Spiriva Respimat 2.5 mcg/actuation mist 2 inh INHALATION DAILY Creon 36,000-114,000- 180,000 unit capsule,delayed release(DR/EC) See Rx Instructions .ROUTE .COMPLEX Rx Instructions: TAKE 2 CAPSULES BY MOUTH 3 TIMES DAILY PLUS 1 CAPSULE WITH SNACKS. prochlorperazine maleate 10 mg tablet 10 mg PO TID PRN (Reason: Nausea) fluticasone propionate 50 mcg/actuation spray,suspension 2 spray INTRANASAL BID naloxone 4 mg/actuation spray,non-aerosol See Rx Instructions .ROUTE .COMPLEX Rx Instructions: 1 spray in 1 nostril upon signs of opioid overdose. call 911. May repeat in alternate nostril if no response within 2 to 3 minutes. Calcium + D 600 mg-5 mcg (200 unit) Tablet 1 tab PO DAILY pantoprazole 20 mg Tablet,Delayed Release (Dr/Ec) 20 mg PO BID Dilaudid 2 mg Tablet 2 mg PO Q4H PRN (Reason: Pain) furosemide 80 mg Tablet 80 mg PO DAILY Novolin R FlexPen 100 unit/mL (3 mL) Insulin Pen See Rx Instructions .ROUTE .COMPLEX Rx Instructions: INJECT 3 TIMES DAILY PER SLIDNG SCALE. OxyContin 10 mg tablet,oral only,ext.rel.12 hr 20 mg PO Q12H magnesium oxide 400 mg magnesium Tablet 400 mg PO DAILY polyethylene glycol 3350 17 gram powder in packet 17 g PO QAM Stool Softener-Laxative 8.6-50 mg tablet 1 tab PO DAILY Discharge Orders: Discharge ED (Routine); Ordered 04/13/24 Ordered By: Juancarlos Arriaza Referrals: Alesha Hylton MD [Primary Care Provider] - Discharge Diet: Advance as tolerated Discharge Activity: Resume usual activity Patient Instructions: Opioid Safety, Pain Management Activity Restrictions/Additional Instructions: Thank you for choosing [facility] for your healthcare needs today. It is very important that you follow up as instructed or that you return to the Emergency Department should you have concerns or if your condition changes or worsens in any way. You were seen today with abdominal pain that is related to your pancreatic cancer. Recommend that you follow-up and establish with hospice to assist you with pain control. You can return to the emergency room at any time if you need further assistance. Coding Level of Care Code ED Quality Systems Specialist for Jenna Hooker
--- NOTE | 2024-04-13 07:55 | XRR_ITS ---
PROCEDURE INFORMATION: Exam: XR Abdomen Exam date and time: 04/13/2024 8:29 AM Age: 79 years old Clinical indication: Constipation; Abdominal pain; Prior surgery; Surgery date: 6+ months; Surgery type: Open heart, pacemaker; Patient HX: HX of prostate cancer; Additional info: Abd pain/constipation TECHNIQUE: Imaging protocol: Radiologic exam of the abdomen. Views: 2 Views. Upright and supine views. COMPARISON: CT abdomen pelvis w con* [id number] 12/12/2023 8:53 AM FINDINGS: Tubes, catheters and devices: Left-sided pacer device with unchanged leads. Accessed right chest wall medical port with tip at the superior cavoatrial junction. Lungs: Basilar atelectasis/scarring. Heart/Mediastinum: Postprocedural changes of the cardiomediastinal silhouette. Gastrointestinal tract: Normal. No bowel dilation. Intraperitoneal space: Normal. No free air. Vasculature: Atherosclerotic disease of the aortic arch. Bones/joints: Status post sternotomy. Diffuse degenerative change of the visualized osseous structures. XR/XR acute abdomen series [id number] IMPRESSION: No acute cardiopulmonary findings.
[2024-04-13] MEDS: morphine 4 mg/mL SDV 1 mL IVP ×2 (07:59→08:49)
[2024-04-13] MEDS: ondansetron 2 mg/ML SDV 2 mL 4 MG IVP (07:59)
[2024-04-13] MEDS: sodium chloride 0.9% 1,000 ML 999 ML IV (08:01)
[2024-04-13 08:02] LABS: Basophils % 0.1 %; Eosinophils # 0.1 10^3/uL (0.0-0.8); Eosinophils % 0.9 %; Hematocrit 37.5 % (37-53); Lymphocytes # 1.6 10^3/uL (0.8-4.8); Lymphocytes % 15.4 %; Mean Corpuscular HGB Conc 33.3 g/dL (30-55); Mean Corpuscular Hemoglobin 27.6 pg (27-33); Mean Corpuscular Volume 82.8 fl (82-101); Mean Platelet Volume 10.5 fL (7.4-10.4); Monocytes # 0.9 10^3/uL (0.2-0.9); Monocytes % 8.6 %; Neutrophils # 7.51 10^3/uL (1.8-7.7); Neutrophils % 74.7 %; Nucleated Red Blood Cells % 0 %; Platelet Count 117 10^3/cmm (157-399); Red Blood Count 4.53 10^6/uL (3.85-5.65); White Blood Count 10.06 10^3/uL (3.29-11.43)
[2024-04-13 08:22] LABS: Alanine Aminotransferase 13 U/L (0-41); Albumin Level 3.5 g/dL (3.5-5.2); Alkaline Phosphatase 114 U/L (40-130); Anion Gap 15.2 (5-19); Aspartate Amino Transferase 19 U/L (0-40); Blood Urea Nitrogen 9 mg/dL (8-23); Calcium 8.9 mg/dL (8.5-10.5); Carbon Dioxide 27 mmol/L (22-29); Chloride 96 mmol/L (98-107); Globulin 3.2 g/dL (1.3-4.6); Glucose 141 mg/dL (65-115); Lipase 8 U/L (13-60); Osmolality Calculated 281 mOsm/kg (285-295); Potassium 3.2 mmol/L (3.5-5.1); Sodium 135 mmol/L (136-145); Total Protein 6.7 g/dL (6.6-8.7)
[2024-04-13 08:23] LABS: Creatinine Clr Calc Pharmacy 68.3602
--- NOTE | 2024-04-13 08:24 | ECG_ITS ---
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 Measurements Intervals [place] Rate: 72 P: 0 HI: 0 QRS: -9 QRSD: 98 T: -57 QT: 419 QTc: 459 Interpretive Statements ATRIAL FIBRILLATION MODERATE T-WAVE ABNORMALITY, CONSIDER ANTEROLATERAL ISCHEMIA [-0.1+ mV T-WAVE IN V3-V6] Compared to ECG 12/12/2023 07:31:03 Possible ischemia now present T-wave abnormality still present Electronically Signed On 04-13-2024 13:40:48 CDT by Andrea Aranda M.D. [email or web address]
[2024-04-13 09:42] LABS: Add Urine Microscopic? NO; Charge for UA Resulting for Rev
[2024-04-13 09:53] LABS: Bilirubin Urine Neg (Negative); Blood Urine Neg (Negative); Glucose Urine UA Norm (Normal); Ketones Urine 2+ (Negative); Leukocyte Esterase Urine Negative (Negative); Nitrate Urine Negative (Negative); Protein Urine Neg (Negative); Urine Appearance Clear (CLEAR); Urine Color Yellow (Yellow); Urobilinogen Urine Norm (Negative); pH Urine 6 (5-7)
[2024-04-13] MEDS: HYDROmorphone 1 mg/mL INJ 1 mL IVP ×2 (10:12→11:22)
== END 2024-04-13 11:00 | disposition home or self-care (01) ==
PROVIDERS: Emergency Provider Family Medicine; PCP Family Medicine
DX: C25.9 Malignant neoplasm of pancreas, unspecified (principal); Z79.4 Long term (current) use of insulin; Z87.891 Personal history of nicotine dependence; I25.10 Atherosclerotic heart disease of native coronary artery without angina pectoris; I10 Essential (primary) hypertension; E78.5 Hyperlipidemia, unspecified; J44.9 Chronic obstructive pulmonary disease, unspecified; Z95.0 Presence of cardiac pacemaker; E11.9 Type 2 diabetes mellitus without complications; Z95.1 Presence of aortocoronary bypass graft; Z92.21 Personal history of antineoplastic chemotherapy; C77.2 Secondary and unspecified malignant neoplasm of intra-abdominal lymph nodes
CPT/HCPCS: 74022; 80053; 81003; 83690; 85025; 93005; 96361; 96374; 96375; 99285; J1170; J2270; J2405; J7030